=== PATIENT | female | born 1950 | race Caucasian/White ===

== ENCOUNTER → 2020-09-09 14:23 | Outpatient (BNVA) | payer MEDICARE, MEDICAID, SELFPAY | PROVIDERS: PCP Internal Medicine; Referring Provider Internal Medicine; Visit Provider Nurse Practitioner Family | DX: M47.816 Spondylosis without myelopathy or radiculopathy, lumbar region (principal); E11.40 Type 2 diabetes mellitus with diabetic neuropathy, unspecified; F17.210 Nicotine dependence, cigarettes, uncomplicated | CPT/HCPCS: 99202 ==

== ENCOUNTER → 2020-10-19 10:45 | Outpatient (BNVA) | payer MEDICARE, MEDICAID, SELFPAY | PROVIDERS: PCP Internal Medicine; Visit Provider Internal Medicine | DX: I48.0 Paroxysmal atrial fibrillation (principal); I48.92 Unspecified atrial flutter; I10 Essential (primary) hypertension; E10.8 Type 1 diabetes mellitus with unspecified complications; Z79.899 Other long term (current) drug therapy | CPT/HCPCS: Q3014 ==

== ENCOUNTER → 2020-11-18 09:49 | Outpatient (BNVA) | payer MEDICARE, MEDICAID, SELFPAY | PROVIDERS: PCP Internal Medicine; Visit Provider Internal Medicine | DX: E10.65 Type 1 diabetes mellitus with hyperglycemia (principal); E78.5 Hyperlipidemia, unspecified; I10 Essential (primary) hypertension; E55.9 Vitamin D deficiency, unspecified; Z86.39 Personal history of other endocrine, nutritional and metabolic disease | CPT/HCPCS: 82947; 99202 ==

== ENCOUNTER → 2020-11-24 09:28 | Outpatient (BNVA) | payer MEDICARE, MEDICAID, SELFPAY | PROVIDERS: PCP Internal Medicine; Visit Provider Nurse Practitioner Family | DX: M47.816 Spondylosis without myelopathy or radiculopathy, lumbar region (principal) | CPT/HCPCS: Q3014 ==

== ENCOUNTER → 2020-12-23 10:07 | Outpatient (BNVA) | payer MEDICARE, MEDICAID, SELFPAY | PROVIDERS: PCP Internal Medicine; Visit Provider Nurse Practitioner Gerontology | DX: Z13.89 Encounter for screening for other disorder (principal) | CPT/HCPCS: Q3014 ==

== ENCOUNTER → 2021-01-12 10:58 | Outpatient (BNVA) | payer MEDICARE, MEDICAID, SELFPAY | PROVIDERS: PCP Internal Medicine; Visit Provider Family Medicine Adult Medicine | DX: M47.816 Spondylosis without myelopathy or radiculopathy, lumbar region (principal); M54.16 Radiculopathy, lumbar region | CPT/HCPCS: Q3014 ==

== ENCOUNTER → 2021-01-20 11:00 | Outpatient (BNVA) | payer MEDICARE, MEDICAID, SELFPAY | PROVIDERS: PCP Internal Medicine; Visit Provider Internal Medicine | DX: I48.0 Paroxysmal atrial fibrillation (principal); I48.92 Unspecified atrial flutter; I10 Essential (primary) hypertension; E10.8 Type 1 diabetes mellitus with unspecified complications; F17.200 Nicotine dependence, unspecified, uncomplicated; Z79.899 Other long term (current) drug therapy; Z71.6 Tobacco abuse counseling | CPT/HCPCS: 93005; 99212 ==

== ENCOUNTER → 2021-01-28 13:02 | Outpatient (BNVA) | payer MEDICARE, MEDICAID, SELFPAY | PROVIDERS: PCP Internal Medicine; Visit Provider Family Medicine Adult Medicine | DX: M47.816 Spondylosis without myelopathy or radiculopathy, lumbar region (principal); M54.16 Radiculopathy, lumbar region | CPT/HCPCS: 99212 ==

== ENCOUNTER → 2021-03-02 12:59 | Outpatient (BNVA) | payer MEDICARE, MEDICAID, SELFPAY | PROVIDERS: PCP Internal Medicine; Visit Provider Family Medicine Adult Medicine | DX: M54.16 Radiculopathy, lumbar region (principal); M47.816 Spondylosis without myelopathy or radiculopathy, lumbar region | CPT/HCPCS: 99212 ==

== ENCOUNTER → 2021-03-11 13:07 | Outpatient (REF) | payer MEDICARE, MEDICAID, SELFPAY ==
--- NOTE | 2021-03-11 13:10 | CA_ITS ---
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 The visually estimated ejection fraction is between 60-65%. - There is mild calcification of the aortic valve. - There is mild mitral valve regurgitation. - There is mild tricuspid valve regurgitation. Findings Left Ventricle Normal left ventricular cavity size. There is normal left ventricular wall thickness. The left ventricular systolic function is normal. The visually estimated ejection fraction is between 60-65%. There is no evidence of regional wall motion abnormalities. Diastolic function is indeterminate on the basis of available data. Right Ventricle Normal right ventricular cavity size. There is low normal right ventricular systolic function. Atria The left atrium is likely dilated. The right atrium is normal in size. Aortic Valve There is a normal trileaflet aortic valve. There is mild calcification of the aortic valve. There is no aortic valve stenosis. There is no aortic valve regurgitation. Mitral Valve The mitral valve appears normal. There is mild mitral valve regurgitation. There is no mitral valve stenosis. Pulmonic Valve The pulmonic valve was not well visualized. Tricuspid Valve Normal tricuspid valve structure. There is mild tricuspid valve regurgitation. The pulmonary artery systolic pressure is normal. Great Vessels The asc aorta is normal in size. Venous The inferior vena cava is normal in size and collapses greater than 50% with inspiration. Pericardium/Pleural There is a trivial pericardial effusion. Prior Study Comparison Changes noted compared to prior study dated: 06/12/2019. Possible increase in left atrial size. Measurements 2D Linear Measurements IVSd: 0.82 0.6-0.9/0.6-1.0 cm LVIDd: 4.53 3.9-5.3/4.2-5.9 cm LVIDd Index: 2.89 2.4-3.2/2.2-3.1 cm/m2 LVIDs: 2.93 2.0-3.6 cm LVPWd: 0.98 0.7-1.1 cm Ao Root: 2.90 2.1-3.5 cm LA Diam: 3.80 2.7-3.8/3.0-4.0 cm LAIDs Index: 2.42 1.5-2.3 cm/m2 LV Mass: 166.48 67-162/88-224 g LV Mass Index: 106.04 43-95/49-115 g/m2 LVOT Diam: 2.00 3.0+(-)1.3 cm 2D Systolic Function EF 4C: 70.60 >55% EF 2C: 59.30 >55% EF BiP: 64.60 >55% Aortic Valve AoV Pk Daryn: 1.30 AoV Mn Daryn: 0.94 AoV VTI: 0.28 AoV Pk Grad: 7.00 Aov Mn Grad: 4.00 RAS Cont.VTI: 1.88 LVOT LVOT Pk Daryn: 0.88 LVOT Mn Daryn: 0.53 LVOT VTI: 0.17 LVOT Pk Grad: 3.00 LVOT Mn Grad: 1.00 LVOT Diam: 2.00 LVOT Area: 3.14 Tricuspid Valve TR Pk Daryn: 2.42 TR Pk Grad: 23.00 RA Press: 3.00 RVSP: 26.00 Great Vessels Aorta Ao Root-2D: 2.90 2.0-3.7 cm Ao Asc: 3.00 2.1-3.4 cm Ao Arch: 2.80 Updated in Other Vendor System with Status of Final Ger Rowe MD electronically signed on 03/13/2021 12:21:42 PM with status of Final
--- NOTE | 2021-03-11 13:25 | ECG_ITS ---
Hook-up date: 2021-03-11 14:27:00 Duration: 47:59:00 Test Indications: UNSPEC. ATRIAL FLUTTER Medications: 094198 QRS complexes 1241 Ventricular ectopics which represent 1 % of total QRS comp. 287 Supraventricular ectopics which represent <1 % of total QRS comp. * Paced QRS complexs which represent % of total QRS comp. VENTRICULAR ECTOPY 1241 Isolated 3 Bigeminal Cycles 0 Couplets 0 Runs 0 Beats in Runs * Beats LONGEST at * BPM at :: -- * Beats FASTEST at * BPM at :: -- SUPRAVENTRICULAR ECTOPY 281 Isolated 3 Couplets 0 Runs 0 Beats in Runs * Beats LONGEST at * BPM at :: -- * Beats FASTEST at * BPM at :: -- HEART RATES 54 MIN at 08:14:30 2021-03-12 82 AVG 143 MAX at 19:28:08 2021-03-11 LONGEST RR 1.2800 secs at 16:42:35 2021-03-11 S-T LEVELS Channel 1 - 128 mm at 14:27:00 2021-03-11 - 128 mm at 14:27:00 2021-03-11 Channel 2 - 128 mm at 14:27:00 2021-03-11 - 128 mm at 14:27:00 2021-03-11 Channel 3 - 128 mm at 03:34:61 -- - 128 mm at 03:34:61 Underlying rhythm is sinus and atrial flutter; About 30% of the time, in atrial flutter; Overall rates, 54-143/min; about 16% of the time, >100/min; Occasional PVCs; Shortness of breath in diary possibly related to flutter. Referred By: Kailey Sandra Overread By: KAILEY SANDRA
== END ==
LOC: HO.CARD 13:07
PROVIDERS: Visit Provider Internal Medicine
DX: I48.92 Unspecified atrial flutter (principal)
CPT/HCPCS: 93225; 93226; 93306

== ENCOUNTER → 2021-03-30 13:30 | Outpatient (BNVA) | payer MEDICARE, MEDICAID, SELFPAY | PROVIDERS: PCP Internal Medicine; Visit Provider Nurse Practitioner Family | DX: M47.816 Spondylosis without myelopathy or radiculopathy, lumbar region (principal); M54.16 Radiculopathy, lumbar region | CPT/HCPCS: 99212 ==

== ENCOUNTER → 2021-04-01 13:15 | Outpatient (BNVA) | payer MEDICARE, MEDICAID, SELFPAY | PROVIDERS: PCP Internal Medicine; Referring Provider Internal Medicine; Visit Provider Internal Medicine | DX: I48.0 Paroxysmal atrial fibrillation (principal); I48.92 Unspecified atrial flutter; I10 Essential (primary) hypertension; E10.8 Type 1 diabetes mellitus with unspecified complications | CPT/HCPCS: 99212 ==

== ENCOUNTER → 2021-04-26 12:53 | Outpatient (REF) | payer MEDICARE, MEDICAID, SELFPAY | LOC: HO.SL 12:53 | PROVIDERS: PCP Internal Medicine; Visit Provider Internal Medicine | DX: G47.33 Obstructive sleep apnea (adult) (pediatric) (principal); I48.92 Unspecified atrial flutter | CPT/HCPCS: 95806 ==

== ENCOUNTER → 2021-04-27 13:23 | Outpatient (BNVA) | payer MEDICARE, MEDICAID, SELFPAY | PROVIDERS: PCP Internal Medicine; Visit Provider Family Medicine Adult Medicine | DX: M54.16 Radiculopathy, lumbar region (principal); M47.816 Spondylosis without myelopathy or radiculopathy, lumbar region; Z79.899 Other long term (current) drug therapy | CPT/HCPCS: 99212 ==

== ENCOUNTER 2021-05-27 12:56 | Outpatient (REF) | payer MEDICARE, MEDICAID, SELFPAY ==
[2021-05-27 14:15] LABS: MANUAL DIFF FLAG NO
[2021-05-27 14:17] LABS: Basophils Percent Auto 0.2 % (0-2); Eosinophils Absolute Auto 0.1 X10*3/uL (0.0-0.4); Eosinophils Percent Auto 1.5 % (0-4); Hematocrit 38.6 % (37-47); Imm Gran Abs Auto 0.05 X10*3/uL (0.00-0.03); Imm Gran Pct Auto 0.6 % (0.0-0.4); Lymphocytes Absolute Auto 0.9 X10*3/uL (1.2-4.9); Lymphocytes Percent Auto 11.4 % (20-40); Mean Corpuscular HGB Conc 33.7 g/dl (31.0-35.0); Mean Corpuscular Hemoglobin 35.2 pg (27.0-33.0); Mean Corpuscular Volume 104.6 fL (80-98); Mean Platelet Volume 10.1 fL (9.4-12.3); Monocytes Absolute Auto 0.6 X10*3/uL (0.1-1.2); Monocytes Percent Auto 7.2 % (2-11); Neutrophils Absolute Auto 6.4 X10*3/uL (2.0-8.3); Neutrophils Percent Auto 79.1 % (45-73); Platelet Count 256 X10*3/uL (160-400); Red Blood Count 3.69 X10*6/uL (4.20-5.50); Red Cell Distribution Width 15.9 % (11.0-16.0); White Blood Count 8.2 X10*3/uL (4.8-10.8)
[2021-05-27 14:45] LABS: Alanine Aminotransferase 10 U/L (0-31); Albumin Level 3.8 g/dL (3.5-5.0); Alkaline Phosphatase 66 U/L (39-117); Anion Gap 13 (12-20); Aspartate Amino Transferase 16 U/L (5-31); B Type Natriuretic Peptide 423 pg/mL (<100); Bilirubin Total 0.4 mg/dL (0.0-1.0); Blood Urea Nitrogen 25 mg/dL (9-16); Calcium 9.4 mg/dL (8.4-10.2); Carbon Dioxide 35 mmol/L (22-29); Chloride 96 mmol/L (96-108); Cholesterol 199 mg/dL; Estimated Glomerular Filt Rate 26; Glucose Random 205 mg/dL (60-115); HDL Cholesterol 83 mg/dL; Iron 71 mcg/dL (30-160); LDL Cholesterol Calculated 91 mg/dl; Percent Iron Saturation 26 % (15-50); Potassium 3.5 mmol/L (3.3-5.1); Sodium 140 mmol/L (135-145); Total Iron Binding Capacity 277 mcg/dL (228-428); Total Protein 5.8 g/dL (6.5-8.0); Triglycerides 127 mg/dL; Unsaturated Iron Binding 206 ug/dL
[2021-05-27 15:05] LABS: Thyroid Stimulating Hormone 2.92 uIU/mL (0.32-4.0)
[2021-05-27 15:35] LABS: Creatinine Urine 117.49 mg/dL; Microalbum/Creatinine Ratio Ur 41.7 ug/mg cr
[2021-05-28 18:51] LABS: Triiodothyronine T3 Total 82 ng/dL (76-181)
[2021-06-01 12:26] LABS: Vitamin D 25-OH, D2 <4 ng/mL; Vitamin D 25-OH, D3 54 ng/mL; Vitamin D 25-OH, Total 54 ng/mL (30-100)
[2021-06-01 19:31] LABS: Glutamic acid decarboxylase Ab <5 IU/mL (<5)
[2021-06-08 07:16] LABS: Islet Cell Antibody Screen NEGATIVE (NEGATIVE)
== END 2021-05-27 12:57 | disposition home or self-care (01) ==
LOC: HO.LAB 12:56
PROVIDERS: Absent Provider Nurse Practitioner Family; PCP Internal Medicine; Visit Provider Family Medicine Adult Medicine
DX: M47.26 Other spondylosis with radiculopathy, lumbar region (principal); Z79.891 Long term (current) use of opiate analgesic; R60.9 Edema, unspecified; D64.9 Anemia, unspecified; I10 Essential (primary) hypertension; E78.5 Hyperlipidemia, unspecified; E10.8 Type 1 diabetes mellitus with unspecified complications; E55.9 Vitamin D deficiency, unspecified; Z86.39 Personal history of other endocrine, nutritional and metabolic disease
CPT/HCPCS: 36415; 80053; 80061; 82043; 82306; 83540; 83880; 84439; 84443; 84480; 85025; 86255; 86341; 99212

== ENCOUNTER → 2021-06-18 12:57 | Outpatient (BNVA) | payer MEDICARE, MEDICAID, SELFPAY | PROVIDERS: PCP Internal Medicine; Visit Provider Internal Medicine Pulmonary Disease | DX: G47.33 Obstructive sleep apnea (adult) (pediatric) (principal); I48.0 Paroxysmal atrial fibrillation; I48.92 Unspecified atrial flutter; R06.02 Shortness of breath; E11.8 Type 2 diabetes mellitus with unspecified complications; E55.9 Vitamin D deficiency, unspecified; F11.20 Opioid dependence, uncomplicated; F17.210 Nicotine dependence, cigarettes, uncomplicated; Z79.01 Long term (current) use of anticoagulants | CPT/HCPCS: 99202 ==

== ENCOUNTER → 2021-06-24 14:05 | Outpatient (BNVA) | payer MEDICARE, MEDICAID, SELFPAY | PROVIDERS: PCP Internal Medicine; Visit Provider Family Medicine Adult Medicine | DX: M47.816 Spondylosis without myelopathy or radiculopathy, lumbar region (principal); M54.16 Radiculopathy, lumbar region; I48.0 Paroxysmal atrial fibrillation; I48.92 Unspecified atrial flutter; E10.69 Type 1 diabetes mellitus with other specified complication; E55.9 Vitamin D deficiency, unspecified; K50.90 Crohn's disease, unspecified, without complications; F11.20 Opioid dependence, uncomplicated; F17.200 Nicotine dependence, unspecified, uncomplicated | CPT/HCPCS: 99212 ==

== ENCOUNTER → 2021-07-22 12:58 | Outpatient (BNVA) | payer MEDICARE, MEDICAID, SELFPAY | PROVIDERS: Visit Provider Family Medicine Adult Medicine | DX: M47.816 Spondylosis without myelopathy or radiculopathy, lumbar region (principal); M54.16 Radiculopathy, lumbar region; R10.9 Unspecified abdominal pain | CPT/HCPCS: 99212 ==

== ENCOUNTER → 2021-08-19 13:04 | Outpatient (BNVA) | payer MEDICARE, MEDICAID, SELFPAY | PROVIDERS: PCP Internal Medicine; Visit Provider Family Medicine Adult Medicine | DX: Z51.81 Encounter for therapeutic drug level monitoring (principal); R10.9 Unspecified abdominal pain | CPT/HCPCS: Q3014 ==

== ENCOUNTER → 2021-09-23 13:40 | Outpatient (BNVA) | payer MEDICARE, MEDICAID, SELFPAY | PROVIDERS: PCP Internal Medicine; Visit Provider Family Medicine Adult Medicine | DX: Z51.81 Encounter for therapeutic drug level monitoring (principal); F11.20 Opioid dependence, uncomplicated | CPT/HCPCS: 99211 ==

== ENCOUNTER → 2021-10-20 13:48 | Outpatient (BNVA) | payer MEDICARE, MEDICAID, SELFPAY | PROVIDERS: PCP Internal Medicine; Visit Provider Nurse Practitioner Family | DX: Z51.81 Encounter for therapeutic drug level monitoring (principal); F11.20 Opioid dependence, uncomplicated; M47.816 Spondylosis without myelopathy or radiculopathy, lumbar region; G89.29 Other chronic pain | CPT/HCPCS: 99212 ==

== ENCOUNTER 2022-05-24 13:30 | Outpatient (REF) | payer MEDICARE, MEDICAID, SELFPAY ==
[2022-05-24 15:06] LABS: Alanine Aminotransferase 18 U/L (0-31); Albumin Level 4.2 g/dL (3.5-5.0); Alkaline Phosphatase 146 U/L (39-117); Anion Gap 19 (12-20); Aspartate Amino Transferase 18 U/L (5-31); Bilirubin Total 0.4 mg/dL (0.0-1.0); Blood Urea Nitrogen 30 mg/dL (9-16); Calcium 9.7 mg/dL (8.4-10.2); Carbon Dioxide 31 mmol/L (22-29); Chloride 92 mmol/L (96-108); Estimated Glomerular Filt Rate 26; Glucose Random 357 mg/dL (60-115); Potassium 4.5 mmol/L (3.3-5.1); Sodium 137 mmol/L (135-145); Total Protein 6.8 g/dL (6.5-8.0)
== END 2022-05-24 13:31 | disposition home or self-care (01) ==
LOC: HO.LAB 13:30
PROVIDERS: PCP Internal Medicine; Visit Provider Internal Medicine
DX: G89.4 Chronic pain syndrome (principal)
CPT/HCPCS: 36415; 80053

== ENCOUNTER 2022-05-31 10:52 | Outpatient (REF) | payer MEDICARE, MEDICAID, SELFPAY ==
[2022-05-31 14:02] LABS: Basophils Percent Auto 0.5 % (0-2); Eosinophils Absolute Auto 0.1 X10*3/uL (0.0-0.4); Eosinophils Percent Auto 1.1 % (0-4); Hematocrit 43.7 % (37.0-47.0); Hemoglobin 14.1 g/dl (12.0-16.0); Imm Gran Abs Auto 0.13 X10*3/uL (0.00-0.03); Imm Gran Pct Auto 1.5 % (0.0-0.4); Lymphocytes Absolute Auto 0.9 X10*3/uL (1.2-4.9); Lymphocytes Percent Auto 9.6 % (20-40); MANUAL DIFF FLAG NO; Mean Corpuscular HGB Conc 32.3 g/dl (31.0-35.0); Mean Corpuscular Hemoglobin 32.6 pg (27.0-33.0); Mean Corpuscular Volume 101.2 fL (80.0-98.0); Mean Platelet Volume 10.8 fL (9.4-12.3); Monocytes Absolute Auto 0.5 X10*3/uL (0.1-1.2); Monocytes Percent Auto 5.4 % (2-11); Neutrophils Absolute Auto 7.2 x10*3/uL (2.0-8.3); Neutrophils Percent Auto 81.9 % (45-73); Platelet Count 340 X10*3/uL (160-400); Red Blood Count 4.32 X10*6/uL (4.20-5.50); Red Cell Distribution Width 15.1 % (11.0-16.0); White Blood Count 8.8 X10*3/uL (4.8-10.8)
[2022-05-31 14:24] LABS: Alanine Aminotransferase 19 U/L (0-31); Alkaline Phosphatase 130 U/L (39-117); Anion Gap 18 (12-20); Aspartate Amino Transferase 23 U/L (5-31); Bilirubin Total 0.2 mg/dL (0.0-1.0); Blood Urea Nitrogen 30 mg/dL (9-16); Calcium 9.2 mg/dL (8.4-10.2); Carbon Dioxide 28 mmol/L (22-29); Chloride 96 mmol/L (96-108); Estimated Glomerular Filt Rate 38; Glucose Random 330 mg/dL (60-115); Potassium 4.4 mmol/L (3.3-5.1); Sodium 138 mmol/L (135-145); Total Protein 6.5 g/dL (6.5-8.0)
== END 2022-05-31 10:53 | disposition home or self-care (01) ==
LOC: HO.HMGCLNP 10:52
PROVIDERS: PCP Internal Medicine; Visit Provider Internal Medicine
DX: I12.9 Hypertensive chronic kidney disease with stage 1 through stage 4 chronic kidney disease, or unspecified chronic kidney disease (principal); N18.2 Chronic kidney disease, stage 2 (mild)
CPT/HCPCS: 80053; 85025

== ENCOUNTER 2022-09-29 14:40 | Outpatient (REF) | payer MEDICARE, MEDICAID, SELFPAY ==
--- NOTE | ~2022-09-29 | XR_ITS ---
EXAMINATION: XR KNEE, LEFT CLINICAL INFORMATION: Left knee pain COMPARISON: Radiographs left knee 12/07/2015, left lower leg 04/04/2020. TECHNIQUE: AP and lateral views of the left knee. FINDINGS: There is probable mild underlying osteopenia. There is no destructive process. No fracture or dislocation. No periostitis. No focal joint narrowing or erosive change or visible chondrocalcinosis. Trace fluid is present suprapatellar bursa. Hoffa's fat pad appears normal. XR/XR knee LT 2V IMPRESSION: 1. Probable mild underlying osteopenia. 2. No joint narrowing or erosive change. 3. Trace fluid suprapatellar bursa.
== END 2022-09-29 14:41 | disposition home or self-care (01) ==
LOC: HO.XRAY 14:40
PROVIDERS: PCP Internal Medicine; Visit Provider Internal Medicine
DX: M25.562 Pain in left knee (principal)
CPT/HCPCS: 73560

== ENCOUNTER 2022-10-20 10:35 | Outpatient (REF) | payer MEDICARE, MEDICAID, SELFPAY ==
--- NOTE | ~2022-10-20 | MM_ITS ---
EXAMINATION: BONE DENSITOMETRY CLINICAL INDICATION: Menopause. COMPARISON: None (current study represents initial baseline exam). TECHNIQUE: Using a Zurn DXA System (software version: 13.1) manufactured by [employer], dual-energy x-ray absorptiometry was performed of the lumbar spine and right hip. The images are of good technical quality. Summary results are attached. FINDINGS: AP SPINE L1-L4: BMD 0.846 g/cm2, Z-score -0.9, T-score -2.8, osteoporosis. RIGHT FEMUR, NECK: BMD 0.588 g/cm2, Z-score -1.3, T-score -3.2, osteoporosis. RIGHT FEMUR, TOTAL: BMD 0.521 g/cm2, Z-score -2.1, T-score -3.9, osteoporosis. IDENTIFIED RISK FACTORS: Menopause, glucocorticoids (chronic), history of fracture (adult), low calcium intake, renal, tobacco use (current smoker), secondary osteoporosis. HISTORY OF FRACTURE: Hip, sacrum. MEDICATIONS: None listed. MM/XR DEXA axial skeleton IMPRESSION: 1. DIAGNOSIS: Osteoporosis based on the lowest T-score value of -3.9 in the total femur applying World Health Organization criteria. 2. 10-YEAR FRACTURE RISK PREDICTION, FRAX: According to the guidelines, FRAX calculation should only be performed on patients in the osteopenia bone density category. Therefore, FRAX was not performed on this patient. 3. Treatment Recommendations: NOF guidelines recommend consideration for treatment in postmenopausal women and men age 50 and older presenting with the following: -A hip or vertebral (clinical or morphometric) fracture. -T-score less than or equal to -2.5 at the femoral neck or spine after appropriate evaluation to exclude secondary causes. -Low bone mass at the hip or spine and a 10-year fracture probability by FRAX of greater than or equal to 3% for hip fracture or greater than or equal to 20% for major osteoporotic fracture based on the [place] adapted WHO algorithm. 4. Other Recommendations: All treatment decisions require clinical judgment and consideration of individual patient factors, including patient preferences, comorbidities, previous drug use, risk factors not captured in the FRAX model (e.g. frailty, falls, vitamin D deficiency, increased bone turnover, interval significant decline in bone density) and possible under or overestimation of fracture risk by FRAX. Additional medical evaluation for secondary cause of low bone mineral density may be appropriate. FUTURE SCAN RECOMMENDATION: People with diagnosed cases of osteoporosis or at high risk for fracture should have regular bone mineral density tests. For patients eligible for Medicare, routine testing is allowed once every 2 years. The testing frequency can be increased to one year for patients who have rapidly progressing disease, those who are receiving or discontinuing medical therapy to restore bone mass, or have additional risk factors.
== END 2022-10-20 10:36 | disposition home or self-care (01) ==
LOC: HO.MAMMO 10:35
PROVIDERS: PCP Internal Medicine; Visit Provider Internal Medicine
DX: Z13.820 Encounter for screening for osteoporosis (principal); Z78.0 Asymptomatic menopausal state; M85.80 Other specified disorders of bone density and structure, unspecified site
CPT/HCPCS: 77080

== ENCOUNTER 2023-05-30 10:09 | Outpatient (AMB) | payer MEDICARE, MEDICAID, SELFPAY ==
--- NOTE | 2023-05-30 10:14 | A.OFFPC_ITS ---
Vital Signs 05/30/23 10:15 Height 5 ft 8 in Weight 134 lb BMI 20.4 BP 122/70 Blood Pressure Location Lt brachial Position Sitting Pulse 92 Pulse Source Pulse Oximeter Temp Source Skin Pulse Oximetry (%) 95 Oxygen Delivery Method Room Air Intake Visit Reasons: 05/01, [facility], fracture of right pubis Intake Note: Patient is here for hospital discharge follow up. Patient was [place] [facility] [place] transferred to [facility] Allergies adhesive Allergy (Verified 05/30/23 10:59) peels 1st layer of skin Medication List - Last Reconciled 05/30/23 by Batool Flowers, JAVID alendronate 70 mg PO QWEEK 90 days allopurinol 100 mg PO DAILY atorvastatin 40 mg PO BEDTIME 90 days blood sugar diagnostic (Accu-Chek Deepa Plus test strips) test 6x daily Type 1; blood sugar diagnostic (Blood Glucose Test strips) Use 1 test strip four times a day clobetasol 0.05% 1 appl topical DAILY diltiazem HCl 180 mg PO BID 90 days flash glucose sensor (FreeStyle Tico 3 Sensor kit) As directed fluconazole 150 mg PO Q3D 2 doses gabapentin 100 mg PO DAILY hydromorphone 2 mg PO Q8H PRN 30 days insulin aspart U-100 (Novolog FlexPen U-100 Insulin aspart) 15 units (0.15 mL) s ubcut .four times a day PRN 90 days insulin glargine (Basaglar KwikPen U-100 Insulin) 25 units (0.25 mL) subcut DAILY 90 days latanoprost 0.005% 1 drp ophthalmic (eye) BEDTIME metoprolol succinate ER 25 mg PO DAILY midodrine 5 mg PO TID 30 days naloxone 4 mg/actuation (Narcan) 4 mg intranasal Q2M PRN pen needle, diabetic Use 1 needle four times a day prednisone 5 mg PO DAILY 90 days rivaroxaban (Xarelto) 15 mg PO DAILY 90 days torsemide 40 mg (2 x 20 mg) PO DAILY 90 days Tobacco use date assessed: 05/30/23 Fall risk assessment: No Falls in past year Last assessed Fall Risk: 05/30/23 Dental Screening Dental Screen Date: 05/30/23 Did you have a dental visit in the last 12 months?: No Did you have a dental problem in the last 6 months where you did not have access to dental care?: No Was dental information given to patient?: Patient has dentist HPI HPI Comments History of Present Illness Details 73-year-old female past medical history significant for COPD, persistent AFib, hyperlipidemia, chronic pain syndrome, ELOISA, Crohn's disease, type [address] mellitus[address] of [address] Alfaro [facility] an admission to [facility] [place] with a discharge date of 04/14/2023 patient presented at [facility] ER with weakness, urinary urgency and incontinence as well as abdominal pain course in the suprapubic region. Patient was also found AFib with ventricular response in the 160s. Patient was found to have positive UTI, pyelonephritis and bacteremia with Klebsiella. Abdominal CT showed postsurgical changes from left proximal femur hardware placement from previous fracture, as well as bladder wall thickening suggesting cystitis an area of low attenuation at the upper pole of left kindney concercing pylonephritis. Patient underwent left renal abscess drainage on 04/04/23 and 04/11. Patient reports drains were removed last week. Patient states following with urology, Cardiology follow up on , follow with DR. Callaway at [facility]. Patient reports was seen by Dr. Ariel DORSEY and does not require further follow up, will request records LAst week AFIB RVR recommended to go ER. Denies CP, palpitations, syncope. For discharge instructions patient was to continue on her Xarelto, Cardizem 240 mg daily, metoprolol 50 mg t.i.d. and digoxin 125 mcg daily. However list patient brought to appointment did not digoxin listed and had Cardizem a 180 daily and metoprolol 25 mg daily. Patient to be called to verify medications at home and what medication she needed a refill on however she forgot the name of this. [facility] Medical History Abdominal discomfort Abnormal CBC measurement Bullous pemphigoid Crohn's disease Diabetes mellitus type 1 Essential hypertension History of Graves' disease Opiate dependence Paroxysmal atrial fibrillation Paroxysmal atrial flutter Right lumbar radiculopathy Shortness of breath Type 1 diabetes mellitus with unspecified complications Vitamin D deficiency Surgical History History of bowel resection History of thyroid nodule Family History Father CVD (cardiovascular disease) Pacemaker Mother Constipation Sister Thyroid disease Social History Household Members: None Household Members Other:: Single lives jyoti Housing: House Alcohol intake: former Patient Tobacco Use Status: Current everyday Tobacco user Tobacco use type: Cigarette Cigarette Packs Per Day: 1 e-Cigarette/Vaping Use: Never Used Second Hand Smoke Exposure: No service: No Current occupational status: disabled Current occupation: On disability since 2001 -nerve damage in foot Cognitive needs: Yes Hearing needs: No Vision needs: Yes Questionnaire Thrive Questionnaire Date Thrive assessed: 01/31/23 AUDIT C Alcohol Use Questionnaire (AUDIT-C) 1. How often do you have a drink containing alcohol?: Monthly or less 2. How many drinks containing alcohol do you have on a typical day when you are drinking?: 1 or 2 3. How often do you have six or more drinks on one occasion?: Never Total Score: 1 HIWOT-7 AMB Questionnaire HIWOT-7 Date HIWOT - 7 assessed: 01/31/23 Source: Developed by Drs. Kieran Summers, Jillian Abrams, Gregg Paris and colleagues, with an educational edmond from [employer]. Review of Systems Const Denies chills, Denies fatigue, Denies fever(s) and Denies poor appetite Eyes Denies no additional complaints ENT Reports Normal hearing present Card Denies chest pain, Denies syncope, Denies rapid heart rate and Denies dyspnea Resp Denies cough and Denies dyspnea GI Denies change in stool character, Denies constipation, Denies diarrhea, Denies nausea and Denies vomiting Denies urinary frequency, Denies dysuria and Denies urinary urgency Neuro Reports Normal hearing present, Denies confusion and Denies syncope Psych Denies confusion Endo Denies fatigue Physical exam (Primary Care) Vital Signs: Last Vital Signs Pulse 92 05/30/23 10:15 BP 122/70 05/30/23 10:15 Pulse Ox 95 05/30/23 10:15 Oxygen Delivery Method Room Air 05/30/23 10:15 BMI result Body Mass Index 20.4 Tobacco/Smoking Status: Tobacco use Status Tobacco use date assessed 05/30/23 05/30/23 10:22 Patient Tobacco Use Status Current everyday Tobacco 05/30/23 10:22 Tobacco use type Cigarette 05/30/23 10:22 e-Cigarette/Vaping Use Never Used 05/30/23 10:22 Thrive Assessment: Date of Thrive Assessment Date Thrive assessed 01/31/23 05/30/23 10:22 Const General: No confusion Orientation/consciousness: No confusion HENMT Head: Yes normocephalic and Yes atraumatic Eyes Conjunctivae: conjunctivae normal Chest Chest palpation & inspection: normal inspection of the chest Resp Effort & Inspection: normal respiratory effort Auscultation: clear to auscultation bilaterally, no crackles, no rhonchi and no wheezes Cardio Rate: regular rate Rhythm: regular rhythm Heart sounds: S1 normal heart sound present and S2 normal heart sound present GI Inspection: Yes normal to inspection Neuro General: No confusion Cranial nerves: Yes Normal hearing present Extrem General: No edema Assessment and Plan Assessment & Plan (1) Diabetes mellitus type 1: Code(s): E10.9 - Type 1 diabetes mellitus without complications Plan: Continue on NovoLog 15 units q.i.d. and Basaglar 25 units daily. (2) Persistent atrial fibrillation: Code(s): I48.19 - Other persistent atrial fibrillation Plan: Keep scheduled follow-up with hand or machine paster this coming . Patient advised to have send recent note to PCP. Patient to be called to verify cardiac medications and dosing she was unsure what medication she need refill on there was discrepancy between patient's list discharge instructions. (3) Hyperlipidemia LDL goal <70: Code(s): E78.5 - Hyperlipidemia, unspecified Plan: Continue on atorvastatin 40 mg bedtime. Follow low-cholesterol diet. Plan Keep scheduled follow-up with PCP in 1 month. Coding Level of Care Code Est Pt Level 4 (88840) Diagnoses Diabetes mellitus type 1 E10.9 Persistent atrial fibrillation I48.19 Hyperlipidemia LDL goal <70 E78.5
[2023-05-30 10:15] VITALS: BP 122/70; PULSE 92; O2SAT 95; BMI 20.4
== END 2023-05-30 11:37 | disposition home or self-care (01) ==
PROVIDERS: PCP Internal Medicine; Visit Provider Nurse Practitioner Family
DX: E10.9 Type 1 diabetes mellitus without complications (principal); I48.19 Other persistent atrial fibrillation; E78.5 Hyperlipidemia, unspecified
CPT/HCPCS: 99214

== ENCOUNTER 2023-07-07 08:28 | Outpatient (AMB) | payer MEDICARE, MEDICAID, SELFPAY ==
--- NOTE | 2023-07-07 08:33 | MHC.PC.OV ---
Vital Signs 07/07/23 08:34 Height 5 ft 8 in Weight 134 lb 6 oz BMI 20.4 BP 118/70 Blood Pressure Location Lt brachial Position Sitting Pulse 73 Pulse Source Pulse Oximeter Pulse Oximetry (%) 99 Oxygen Delivery Method Room Air Intake Visit Reasons: Cataract surgery, 07/12 R eye, 08/09 L eye Recreation Director Required: No Accompanied by: Self / Same As Patient Allergies adhesive Allergy (Verified 07/07/23 09:08) peels 1st layer of skin Medication List - Last Reconciled 07/07/23 by Sriram Chew MD alendronate 70 mg PO QWEEK 90 days allopurinol 100 mg PO DAILY atorvastatin 40 mg PO BEDTIME 90 days blood sugar diagnostic (Accu-Chek Deepa Plus test strips) test 6x daily Type 1; blood sugar diagnostic (Blood Glucose Test strips) Use 1 test strip four times a day clobetasol 0.05% 1 appl topical DAILY diltiazem HCl 180 mg PO BID 90 days flash glucose sensor (FreeStyle Tico 3 Sensor kit) As directed fluconazole 150 mg PO Q3D 2 doses gabapentin 100 mg PO DAILY hydromorphone 2 mg PO Q8H PRN 30 days insulin aspart U-100 (Novolog FlexPen U-100 Insulin aspart) 15 units (0.15 mL) subcut .four times a day PRN 90 days insulin glargine (Basaglar KwikPen U-100 Insulin) 25 units (0.25 mL) subcut DAILY 90 days latanoprost 0.005% 1 drp ophthalmic (eye) BEDTIME metoprolol succinate ER 50 mg PO DAILY midodrine 5 mg PO TID 30 days naloxone 4 mg/actuation (Narcan) 4 mg intranasal Q2M PRN pen needle, diabetic Use 1 needle four times a day prednisone 5 mg PO DAILY 90 days rivaroxaban (Xarelto) 15 mg PO DAILY 90 days torsemide 40 mg (2 x 20 mg) PO DAILY 90 days Tobacco use date assessed: 07/07/23 Fall risk assessment: No Falls in past year Last assessed Fall Risk: 07/07/23 Dental Screening Dental Screen Date: 07/07/23 Did you have a dental visit in the last 12 months?: Yes Did you have a dental problem in the last 6 months where you did not have access to dental care?: No Was dental information given to patient?: Patient has dentist HPI Cataract surgery, 07/12 R eye, 08/09 L eye HPI Details Patient comes in today at the request of Dr. Nahun Chang for a preoperative medical examination for clearance for surgery She is scheduled for cataract extraction/phacoemulsification with IOL of the right eye under MAC on 07/12/2023, followed by the same procedure on the left eye a few weeks later on 08/09/2023 Patient states that she feels well She has past medical histories significant for diabetes, hypertension, paroxysmal atrial fibrillation, CKD, bullous phemphigoid and chronic pain syndrome States that her blood sugar readings have been very good lately and that her blood sugar reading this morning was around 117 mg/dl She denies any headaches or dizziness Denies any chest pains, no SOB No nausea/vomiting, no abdominal pain No change in bowel habits noted States that she had some follow up labs done at [facility] a couple of weeks ago [facility] Medical History (Updated 07/07/23 @ 11:06 by Sriram Chew MD) Chronic kidney disease, stage III (moderate) Pure hypercholesterolemia Abdominal discomfort Shortness of breath Right lumbar radiculopathy Abnormal CBC measurement Crohn's disease History of Graves' disease Vitamin D deficiency Opiate dependence Bullous pemphigoid Type 1 diabetes mellitus with unspecified complications Essential hypertension Paroxysmal atrial flutter Paroxysmal atrial fibrillation Diabetes mellitus type 1 Surgical History History of bowel resection History of thyroid nodule Family History Father CVD (cardiovascular disease) Pacemaker Mother Constipation Sister Thyroid disease Social History Household Members: None Household Members Other:: Single lives jyoti Housing: House Alcohol intake: former Patient Tobacco Use Status: Current everyday Tobacco user Tobacco use type: Cigarette Cigarette Packs Per Day: 1 e-Cigarette/Vaping Use: Never Used Second Hand Smoke Exposure: No service: No Current occupational status: disabled Current occupation: On disability since 2001 -nerve damage in foot Cognitive needs: Yes Hearing needs: No Vision needs: Yes Questionnaire PHQ-9 Over the last 2 weeks, how often have you been bothered by any of the following problems? 1. Little interest or pleasure in doing things: not at all 2. Feeling down, depressed, or hopeless: not at all 3. Trouble falling or staying asleep, or sleeping too much: not at all 4. Feeling tired or having little energy: not at all 5. Poor appetite or overeating: not at all 6. Feeling bad about yourself - or that you are a failure or have let yourself or your family down: not at all 7. Trouble concentrating on things, such as reading the newspaper or watching television: not at all 8. Moving or speaking so slowly that other people could have noticed. Or the opposite - being so fidgety or restless that you have been moving around a lot more than usual: not at all 9. Thoughts that you would be better off or of hurting yourself in some way: not at all Total score: 0 Depression Screening Interpretation: Negative [id number] - PHQ-9 Billing: Yes Source: Developed by Drs. Kieran Summers, Jillian Abrams, Gregg Paris and colleagues, with an educational edmond from [employer]. Thrive Questionnaire Date Thrive assessed: 07/07/23 I am a: Patient What is your living situation today?: I have a steady place to live Within the past 12 months, did the food you bought not last and you didn't have the money to get more?: Never true Within the past 12 months, did you worry whether your food would run out before you got money to buy more?: Never true Do you have trouble paying for medicines?: No Do you have trouble getting transportation to medical appointments?: No Do you have trouble paying your heating and electricity bill?: No Do you have trouble taking care of your child, family member or friend?: No Do you have trouble with day-to-day activities such as bathing, preparing meals, shopping, managing finances, etc.?: No Are you currently unemployed and looking for a job?: No Are you interested in more education?: No Please select the resources that you would like help with: None Currently or been in a relationship where the following occur: no concerns reported AUDIT C Alcohol Use Questionnaire (AUDIT-C) 1. How often do you have a drink containing alcohol?: Monthly or less 2. How many drinks containing alcohol do you have on a typical day when you are drinking?: 1 or 2 3. How often do you have six or more drinks on one occasion?: Never Total Score: 1 Score Reviewed/Action Taken: Yes HIWOT-7 AMB Questionnaire HIWOT-7 Date HIWOT - 7 assessed: 07/07/23 Feeling nervous, anxious, or on edge: 0 = Not at all Not being able to stop or control worryin = Not at all Worrying too much about different things: 0 = Not at all Trouble relaxin = Not at all Being so restless that it is hard to sit still: 0 = Not at all Becoming easily annoyed or irritable: 0 = Not at all Feeling afraid as if something awful might happen: 0 = Not at all Total HIWOT-7 score (0-4 normal; 5-9 mild; 10-14 moderate; 15-21 severe): 0 Source: Developed by Drs. Kieran Summers, Jillian Abrams, Gregg Paris and colleagues, with an educational edmond from [employer]. Review of Systems Const Denies fatigue, Denies fever(s) and Denies headache(s) Eyes Reports blurry vision ENT Denies dysphagia, Denies dizziness, Denies otalgia, Denies headache(s), Denies neck pain, Denies odynophagia and Denies sore throat Card Denies chest pain, Denies palpitations and Denies dyspnea Resp Denies cough and Denies dyspnea GI Denies abdominal pain, Denies constipation, Denies dysphagia, Denies heartburn, Denies diarrhea, Denies nausea, Denies odynophagia and Denies vomiting Denies difficulty voiding, Denies nocturia and Denies dysuria Musc Denies neck pain Neuro Denies dizziness and Denies headache(s) Endo Denies fatigue and Denies palpitations Physical exam (Primary Care) Vital Signs: Last Vital Signs Pulse 73 07/07/23 08:34 BP 118/70 07/07/23 08:34 Pulse Ox 99 07/07/23 08:34 Oxygen Delivery Method Room Air 07/07/23 08:34 BMI result Body Mass Index 20.4 Tobacco/Smoking Status: Tobacco use Status Tobacco use date assessed 07/07/23 07/07/23 08:42 Patient Tobacco Use Status Current everyday Tobacco 07/07/23 08:42 Tobacco use type Cigarette 07/07/23 08:42 e-Cigarette/Vaping Use Never Used 07/07/23 08:42 PHQ-9: PHQ-9 Score PHQ-9: Total score 0 07/07/23 09:13 Depression Screening Interpretation: Negative Thrive Assessment: Date of Thrive Assessment Date Thrive assessed 07/07/23 07/07/23 08:42 Currently or been in a relationship where the following occur: no concerns reported Const General: no acute distress and alert HENMT Throat: Yes posterior oropharynx normal and Yes tonsils normal (no TP congestion) Neck Neck: Yes no lymphadenopathy and Yes supple Resp Auscultation: clear to auscultation bilaterally, no rales and no wheezes Cardio Rate: regular rate Rhythm: regular rhythm Heart sounds: no murmurs GI Palpation (GI): Soft to palpation and nontender Auscultation: normal bowel sounds Back/Spine/Pelvis Thoracic/Lumbar Spine: lumbar spinal tenderness Skin Other: (+) few plaques and lesions scattered throughout her body Extrem General: Yes no clubbing, cyanosis or edema Results AMB Hemoglobin A1c AMB Hemoglobin A1c 7.5 % Last Edit by Angel Price on 07/07/23 09:28 Assessment and Plan Assessment & Plan (1) Preoperative examination: Code(s): Z01.818 - Encounter for other preprocedural examination Plan: Patient presents with acceptable risks for planned low cardiac-risk procedure Results of her labs done at [facility] a few weeks ago reviewed and discussed with patient - results are attached to this report (2) Cataracts, bilateral: Code(s): H26.9 - Unspecified cataract Qualifiers: Age-related cataract type: unspecified Cataract type: age-related Qualified Code(s): H25.9 - Unspecified age-related cataract Plan: She is scheduled for cataract extraction/phacoemulsification with IOL of the right eye under MAC on 07/12/2023, followed by the same procedure on the left eye a few weeks later on 08/09/2023 (3) Type 1 diabetes mellitus with unspecified complications: Code(s): E10.8 - Type 1 diabetes mellitus with unspecified complications Plan: In-office HgbA1c done today is at 7.5% (was at 7.6% back in January 2023) - goal is <7.0% Reinforced diabetic diet Continue Basaglar 25 units Q HS and Novolog 15 units 3 times a day with meals and at bedtime per sliding scale (4) Paroxysmal atrial fibrillation: Code(s): I48.0 - Paroxysmal atrial fibrillation Plan: Patient is currently in sinus rhythm She is maintained on Xarelto 15 mg QD for thromboembolism prophylaxis - CHADSVASc score is at least 3 Continue Diltiazem 180 mg QD, Metoprolol ER 50 mg QD and Digoxin 125 mcg QD; Multaq was discontinued by cardiology last year (2021) Follow up with cardiology as scheduled (5) Orthostatic hypotension: Code(s): I95.1 - Orthostatic hypotension Plan: Continue Midodrine 5 mg TID (6) Chronic kidney disease, stage III (moderate): Code(s): N18.30 - Chronic kidney disease, stage 3 unspecified Qualifiers: Chronic kidney disease stage 3 subtype: stage 3a (GFR 45-59) Qualified Code(s): N18.31 - Chronic kidney disease, stage 3a Plan: Is presumbaly related to her diabetes Her most recent GFR was at 45 on her labs done a few weeks ago Continue Torsemide 40 mg QD (7) Pure hypercholesterolemia: Code(s): E78.00 - Pure hypercholesterolemia, unspecified Plan: Reinforced low cholesterol diet Continue Atorvastatin 40 mg QD (8) Bullous pemphigoid: Code(s): L12.0 - Bullous pemphigoid Plan: Continue Prednisone 5 mg QD and Clobetasol 0.05% QD She has been treated with Imuran by dermatology in the past Follow up with dermatology as scheduled (9) Chronic pain syndrome: Code(s): G89.4 - Chronic pain syndrome Plan: Currently has multiple pain generators, including her lumbar spine and an old sacral fracture Continue Gabapentin 100 mg QD adn Hydromorphone 2 mg Q 8 hours PRN Follow up with pain management as scheduled Plan Patient is currently medically optimized and does not appear to have any medical contraindications to undergo her upcoming planned eye surgeries She is currently on Xarelto 15 mg QD for thromboembolism prophylaxis for her paroxysmal atrial fibrillation Have discussed with patient that we typically do not need to stop blood thinners now for cataract surgery, especially with the newer NOACs, BUT some ophthalmologists still prefer to stop them to prevent any bruising that may occur when using local anesthesia Have advised that I will leave this up to Dr. Chang if he feels comfortable with patient continuing Xarelto or not - if the preference is to HOLD the anticoagulant for surgery, she can just stop this 24 hours prior to her surgery and then resume taking it the following day after her procedure Patient is currently MEDICALLY CLEARED for her eye surgeries in the following weeks Follow up with PCP as scheduled in October 2023 Orders: Orders AMB Hemoglobin A1c Today Z13.9 - Encounter for screening, unspecified Coding Level of Care Code Est Pt Level 4 (19707) Diagnoses Preoperative examination Z01.818 Age-related cataract of both eyes, unspecified age-related cataract type H25.9 Age-related cataract type: unspecified Cataract type: age-related Type 1 diabetes mellitus with unspecified complications E10.8 Paroxysmal atrial fibrillation I48.0 Orthostatic hypotension I95.1 Stage 3a chronic kidney disease N18.31 Chronic kidney disease stage 3 subtype: stage 3a (GFR 45-59) Pure hypercholesterolemia E78.00 Bullous pemphigoid L12.0 Chronic pain syndrome G89.4
[2023-07-07 08:34] VITALS: BP 118/70; PULSE 73; O2SAT 99; BMI 20.4
== END 2023-07-07 09:31 | disposition home or self-care (01) ==
PROVIDERS: PCP Internal Medicine; Visit Provider Internal Medicine
DX: H25.9 Unspecified age-related cataract (principal); E10.8 Type 1 diabetes mellitus with unspecified complications; N18.31 Chronic kidney disease, stage 3a; Z01.818 Encounter for other preprocedural examination; I48.0 Paroxysmal atrial fibrillation; I95.1 Orthostatic hypotension; E78.00 Pure hypercholesterolemia, unspecified; L12.0 Bullous pemphigoid; G89.4 Chronic pain syndrome
CPT/HCPCS: 83036; 99214

== ENCOUNTER 2023-09-12 11:28 | Outpatient (AMB) | payer MEDICARE, MEDICAID, SELFPAY ==
[2023-09-12 11:30] VITALS: BMI 20.4
--- NOTE | 2023-09-12 11:30 | A.OFFVIS_ITS ---
Intake Vital Signs 09/12/23 11:30 Height 5 ft 8 in Weight 134 lb BMI 20.4 Intake Visit Reasons: UNIFORM DESIGNER/PCP referral for PVD Intake Note: UNIFORM DESIGNER for LE pain, started out as Left LE, but is now both LE. Pain is with or without ambulation, worse with ambulation. Pt states its constantly sore. Started with foot pain only and had swelling and discoloration. Swelling and discoloration are decreased but pain has increased. Does have neuropathy and smokes Allergies adhesive Allergy (Verified 09/12/23 11:35) peels 1st layer of skin HPI UNIFORM DESIGNER/PCP referral for PVD HPI Details Very complex 73-year-old female presents for evaluation regarding her lower extremities. She reports that she has been having ankle pain and was seen by urgent care. The performed x-rays but nothing specific found. She has been referred for lower extremity pain. She reports that she can walk about a block. In general she has had prior hip pinning and has hip pain along with ankle pain. She has a prior history of diabetes for nearly 30 years and smokes about a pack per day. She is being maintained on Xarelto for AFib. She now presents to us for vascular evaluation. [facility] Medical History Chronic kidney disease, stage III (moderate) Pure hypercholesterolemia Abdominal discomfort Shortness of breath Right lumbar radiculopathy Abnormal CBC measurement Crohn's disease History of Graves' disease Vitamin D deficiency Opiate dependence Bullous pemphigoid Type 1 diabetes mellitus with unspecified complications Essential hypertension Paroxysmal atrial flutter Paroxysmal atrial fibrillation Diabetes mellitus type 1 Surgical History History of bowel resection History of thyroid nodule Family History Father CVD (cardiovascular disease) Pacemaker Mother Constipation Sister Thyroid disease Household Members: None Household Members Other:: Single lives jyoti Housing: House Alcohol intake: former Patient Tobacco Use Status: Current everyday Tobacco user Tobacco use type: Cigarette Cigarette Packs Per Day: 1 e-Cigarette/Vaping Use: Never Used Second Hand Smoke Exposure: No service: No Current occupational status: disabled Current occupation: On disability since 2001 -nerve damage in foot Cognitive needs: Yes Hearing needs: No Vision needs: Yes Review of Systems Const All systems reviewed & are unremarkable except as noted in HPI and below Reports no additional complaints ENT Reports Normal hearing present Card Denies chest pain, Denies chest pain at rest, Denies chest pain with activity and Denies pedal edema Resp Denies cough GI Denies abdominal pain Musc Denies abnormal gait, Denies muscle cramps and Denies radiating pain into limb Skin/Breast Denies skin ulcer and Denies wounds Neuro Reports Normal hearing present and Denies abnormal gait Psych Reports no additional complaints Physical Exam Vital Signs: BMI result Body Mass Index 20.4 Const General: cooperative, healthy appearing and comfortable Orientation/consciousness: oriented to person, oriented to place and oriented to time HEENT Head: Yes normal to inspection Neck Neck: Yes normal visual inspection Carotids: no bruits Chest Chest palpation & inspection: normal inspection of the chest Resp Effort & Inspection: normal respiratory effort and able to speak in complete sentences Auscultation: clear to auscultation bilaterally, no crackles, no rales, no rhonchi and no wheezes Cardio Other: Right side palpable DP, left side DP signal Rate: regular rate Rhythm: regular rhythm Heart sounds: S1 normal heart sound present and S2 normal heart sound present Bruits: no carotid bruits Peripheral pulses: Peripheral pulses 2+ throughout GI Inspection: Yes normal to inspection Skin Wounds: no wounds Hair: normal Neuro General: oriented to person, oriented to place and oriented to time Cranial nerves: Yes CN's II-XII intact bilaterally and Yes Normal hearing present Cognition (Neuro): normal cognition Motor exam (neuro): 5/5 motor strength present throughout Extrem Other: venous exam: No significant superficial varicosities or spider telangiectasias, minimal edema General: No clubbing, No cyanosis and No edema Psych Appearance: grossly normal Mental Status: mental status grossly normal Speech and movement: Normal speech and movement present Results Reviewed Results Reviewed: CT scan dated 12/27/2022 demonstrates evidence atherosclerotic changes in the aorta and iliofemoral vessels Assessment & Plan Assessment & Plan (1) PAD (peripheral artery disease): Code(s): I73.9 - Peripheral vascular disease, unspecified Plan: In short patient has lower extremity pain. This may be multifactorial in nature. She does have a history of diabetes along with spine issues as seen on CT scan. This leads me to believe that there is a neurogenic component for this. In addition she complains of ankle and hip pain which may be an element of arthritis as well. I was unable to appreciate good palpable left leg arterial pulses. I have taken the liberty of ordering noninvasive arterial testing. We did discuss her risk factors including diabetes and smoking. We did discuss risk factor modification and she will follow up with us after barry esquivel. Thank you for allowing us to assist in her care. Orders: Orders US arterial duplex LE 1 Week I73.9 - Peripheral vascular disease, unspecified Coding Level of Care Code New Pt Level 4 (24613) Diagnoses PAD (peripheral artery disease) I73.9
== END 2023-09-12 11:56 | disposition home or self-care (01) ==
PROVIDERS: PCP Internal Medicine; Visit Provider Surgery Vascular Surgery
DX: I73.9 Peripheral vascular disease, unspecified (principal)
CPT/HCPCS: 99203

== ENCOUNTER → 2023-09-12 11:28 | Outpatient (BNVA) | payer MEDICARE, MEDICAID, SELFPAY | PROVIDERS: PCP Internal Medicine; Visit Provider Surgery Vascular Surgery | DX: I73.9 Peripheral vascular disease, unspecified (principal) | CPT/HCPCS: 99202 ==

== ENCOUNTER 2023-10-10 13:06 | Outpatient (REF) | payer MEDICARE, MEDICAID, SELFPAY ==
--- NOTE | ~2023-10-10 | US_ITS ---
EXAMINATION: Noninvasive assessment of the bilateral lower extremities with ARTERIAL DUPLEX and ANKLE BRACHIAL INDICES (ABIs). CLINICAL INFORMATION: Peripheral vascular disease TECHNIQUE: Duplex Doppler techniques with waveform analysis and measurement of velocities in the bilateral common femoral, profunda femoris, superficial femoral, popliteal and tibial arteries were performed. Additionally, ankle pulse volume recordings, ankle pressure measurements and ankle brachial indices were obtained of the lower extremity arterial system bilaterally. The study was performed only at rest. COMPARISON: None FINDINGS: DIRECT DUPLEX DOPPLER FINDINGS: RIGHT LEG: Common femoral artery: 55.2 cm/s, phasicity: Triphasic Profunda femoris artery: 44.3 cm/s, phasicity: Biphasic Superficial femoral artery (proximal): 71.2 cm/s, phasicity: Biphasic Superficial femoral artery (mid): 73.4 cm/s, phasicity: Biphasic Superficial femoral artery (distal): 73.1 cm/s, phasicity: Triphasic Popliteal artery: 88.3 cm/s, phasicity: Triphasic Posterior tibial artery: 74.4 cm/s, phasicity: Triphasic Peroneal artery: 53.7 cm/s, phasicity: Biphasic Anterior tibial artery: 50.3 cm/s, phasicity: Triphasic Dorsalis pedis artery: 78.4 cm/s, phasicity:Triphasic LEFT LEG: Common femoral artery: 63.3 cm/s, phasicity: Triphasic Profunda femoris artery: 25.6 cm/s, phasicity: Biphasic Superficial femoral artery (proximal): 65.1 cm/s, phasicity: Biphasic Superficial femoral artery (mid): 88.5 cm/s, phasicity: Biphasic Superficial femoral artery (distal): 52.6 cm/s, phasicity: Biphasic Popliteal artery: 78.5 cm/s, phasicity: Biphasic Posterior tibial artery: 61.2 cm/s, phasicity: Biphasic Peroneal artery: 43.2 cm/s, phasicity: Biphasic Anterior tibial artery: 40.4 cm/s, phasicity: Biphasic Dorsalis pedis artery: 73.3 cm/s, phasicity: Biphasic ANKLE-BRACHIAL INDEX: Right: 1.26? Left: 1.23 ANKLE PRESSURES: Right: PT 158, DP 153 Left: PT?154, DP?136 ANKLE PVR WAVEFORMS: Right: Normal Left: Normal US/US arterial duplex LE BI IMPRESSION: Right leg: Normal ankle brachial index and PVR waveforms. Normal arterial duplex. Left leg: Normal ankle brachial index and PVR waveforms. Normal arterial duplex. KEMI Reference: - >1.4 = calcified vessels - 0.9 - 1.4 = normal - no significant arterial disease - 0.7 - 0.89 = mild peripheral arterial disease - 0.51 - 0.69 = moderate peripheral arterial disease - ? 0.50 = severe peripheral arterial disease - < .30 = critical arterial disease
== END 2023-10-10 13:07 | disposition home or self-care (01) ==
LOC: HO.US 13:06
PROVIDERS: PCP Internal Medicine; Visit Provider Surgery Vascular Surgery
DX: I73.9 Peripheral vascular disease, unspecified (principal)
CPT/HCPCS: 93923; 93925

== ENCOUNTER 2023-10-17 10:18 | Outpatient (AMB) | payer MEDICARE, MEDICAID, SELFPAY ==
[2023-10-17 10:21] VITALS: BP 114/74; PULSE 91; O2SAT 96; BMI 20.5
--- NOTE | 2023-10-17 10:21 | MHC.OFFVIS ---
Intake Vital Signs 10/17/23 10:21 Height 5 ft 8 in Weight 135 lb BMI 20.5 BP 114/74 Blood Pressure Location Lt brachial Position Sitting Pulse 91 Pulse Source Pulse Oximeter Pulse Oximetry (%) 96 Oxygen Delivery Method Room Air Intake Visit Reasons: arterial US follow up Intake Note: Pt presents to the office today for a arterial US follow up. Pt states she has had a lot of ankle pain recently. Pt denies any numbness or swelling. Pt states she has discoloration in both ankles. Pt states her right ankle is worse at this time. Allergies adhesive Allergy (Verified 10/17/23 10:22) peels 1st layer of skin HPI arterial US follow up HPI Details Very pleasant 73-year-old female presents for follow-up regarding peripheral vascular disease. She has undergone noninvasive arterial ultrasound. Upon discussion with her she describes more of a neuropathy and pain radiating down her back. In addition she has ankle pain which is been a significant source of discomfort. She does have a history of diabetes and smokes about a pack a day. She is being maintained on Xarelto for AFib. She now presents for follow-up with noninvasive arterial testing. Also of note she is being maintained on a statin [facility] Medical History Chronic kidney disease, stage III (moderate) Pure hypercholesterolemia Abdominal discomfort Shortness of breath Right lumbar radiculopathy Abnormal CBC measurement Crohn's disease History of Graves' disease Vitamin D deficiency Opiate dependence Bullous pemphigoid Type 1 diabetes mellitus with unspecified complications Essential hypertension Paroxysmal atrial flutter Paroxysmal atrial fibrillation Diabetes mellitus type 1 Surgical History History of bowel resection History of thyroid nodule Family History Father CVD (cardiovascular disease) Pacemaker Mother Constipation Sister Thyroid disease Social History Household Members: None Household Members Other:: Single lives jyoti Housing: House Alcohol intake: former Patient Tobacco Use Status: Current everyday Tobacco user Tobacco use type: Cigarette Cigarette Packs Per Day: 1 e-Cigarette/Vaping Use: Never Used Second Hand Smoke Exposure: No service: No Current occupational status: disabled Current occupation: On disability since 2001 -nerve damage in foot Cognitive needs: Yes Hearing needs: No Vision needs: Yes Review of Systems Const All systems reviewed & are unremarkable except as noted in HPI and below Reports no additional complaints ENT Reports Normal hearing present Card Denies chest pain, Denies chest pain at rest, Denies chest pain with activity and Denies pedal edema Resp Denies cough GI Denies abdominal pain Musc Denies abnormal gait, Denies muscle cramps and Denies radiating pain into limb Skin/Breast Denies skin ulcer and Denies wounds Neuro Reports Normal hearing present and Denies abnormal gait Psych Reports no additional complaints Physical Exam Vital Signs: Last Vital Signs Pulse 91 10/17/23 10:21 BP 114/74 10/17/23 10:21 Pulse Ox 96 10/17/23 10:21 Oxygen Delivery Method Room Air 10/17/23 10:21 BMI result Body Mass Index 20.5 Const General: cooperative, healthy appearing and comfortable Orientation/consciousness: oriented to person, oriented to place and oriented to time HEENT Head: Yes normal to inspection Neck Neck: Yes normal visual inspection Carotids: no bruits Chest Chest palpation & inspection: normal inspection of the chest Resp Effort & Inspection: normal respiratory effort and able to speak in complete sentences Auscultation: clear to auscultation bilaterally, no crackles, no rales, no rhonchi and no wheezes Cardio Other: Palpable bilateral DP pulses Rate: regular rate Rhythm: regular rhythm Heart sounds: S1 normal heart sound present and S2 normal heart sound present Bruits: no carotid bruits Peripheral pulses: Peripheral pulses 2+ throughout GI Inspection: Yes normal to inspection Skin Wounds: no wounds Hair: normal Neuro General: oriented to person, oriented to place and oriented to time Cranial nerves: Yes CN's II-XII intact bilaterally and Yes Normal hearing present Cognition (Neuro): normal cognition Motor exam (neuro): 5/5 motor strength present throughout Extrem Other: venous exam: No significant superficial varicosities or spider telangiectasias, minimal edema General: No clubbing, No cyanosis and No edema Psych Appearance: grossly normal Mental Status: mental status grossly normal Speech and movement: Normal speech and movement present Results Reviewed Results Reviewed: Noninvasive arterial testing dated 10/10/2023 demonstrates KEMI on the right of 1.26 and on the left of 1.23. Written report and images were reviewed. Assessment & Plan Assessment & Plan (1) PAD (peripheral artery disease): Code(s): I73.9 - Peripheral vascular disease, unspecified Plan: In short patient has stable claudication. I do believe that the majority of her pain is neurogenic in nature and she may have even an element of arthritis in particular that ankle. I did review the pathophysiology of peripheral vascular disease with the patient. In addition we did discuss routine conservative measures including a healthy diet and the importance of exercise and ambulation. We did discuss risk factor modification. The patient will continue to to follow-up with surveillance follow-up in approximately 1 year. Thank you for allowing us to participate in this patient's care. If there are any questions or concerns please do not hesitate to contact us. Orders: Orders US arterial duplex LE BI 364 Days I73.9 - Peripheral vascular disease, unspecified Coding Level of Care Code Est Pt Level 4 (84072) Diagnoses PAD (peripheral artery disease) I73.9
== END 2023-10-17 10:44 | disposition home or self-care (01) ==
PROVIDERS: PCP Internal Medicine; Visit Provider Surgery Vascular Surgery
DX: I73.9 Peripheral vascular disease, unspecified (principal)
CPT/HCPCS: 99213

== ENCOUNTER → 2023-10-17 10:18 | Outpatient (BNVA) | payer MEDICARE, MEDICAID, SELFPAY | PROVIDERS: PCP Internal Medicine; Visit Provider Surgery Vascular Surgery | DX: I73.9 Peripheral vascular disease, unspecified (principal) | CPT/HCPCS: 99212 ==

== ENCOUNTER 2023-11-02 10:44 | Outpatient (AMB) | payer MEDICARE, MEDICAID, SELFPAY ==
[2023-11-02 10:49] VITALS: BP 126/78; BMI 19.9
--- NOTE | 2023-11-02 10:49 | MHC.PC.OV ---
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: No Accompanied by: Self / Same As Patient Allergies adhesive Allergy (Verified 11/02/23 10:54) peels 1st layer of skin Medication List - Last Reconciled 11/02/23 by Koki Crane MD acetaminophen ER 1,300 mg PO Q12H alendronate 70 mg PO QWEEK 90 days allopurinol 100 mg PO DAILY atorvastatin 40 mg PO BEDTIME 90 days blood sugar diagnostic (Accu-Chek Deepa Plus test strips) test 6x daily Type 1; blood sugar diagnostic (Blood Glucose Test strips) Use 1 test strip four times a day clobetasol 0.05% 1 appl topical DAILY diltiazem HCl 180 mg PO BID 90 days estradiol 0.01%(0.1mg/gram) vaginal flash glucose sensor (FreeStyle Tico 3 Sensor kit) As directed gabapentin 100 mg PO DAILY hydromorphone 2 mg PO Q8H PRN 30 days insulin aspart U-100 (Novolog FlexPen U-100 Insulin aspart) 15 units (0.15 mL) subcut .four times a day PRN 90 days insulin glargine (Basaglar KwikPen U-100 Insulin) 21 units subcut DAILY latanoprost 0.005% 1 drp ophthalmic (eye) BEDTIME metoprolol succinate ER 50 mg PO DAILY midodrine 5 mg PO TID 30 days naloxone 4 mg/actuation (Narcan) 4 mg intranasal Q2M PRN pen needle, diabetic Use 1 needle four times a day prednisone 2 mg PO DAILY rivaroxaban (Xarelto) 15 mg PO DAILY 90 days torsemide 40 mg (2 x 20 mg) PO DAILY 90 days Tobacco use date assessed: 11/02/23 Fall risk assessment: No Falls in past year Last assessed Fall Risk: 11/02/23 Dental Screening Dental Screen Date: 11/02/23 Did you have a dental visit in the last 12 months?: No Did you have a dental problem in the last 6 months where you did not have access to dental care?: No Was dental information given to patient?: Patient has dentist HPI HPI Comments History of Present Illness Details This is a 73 year old female with diabetes mellitus type 1 on senior care current use of insulin. Crohn's disease, persistent atrial fibrillation and hyperliidemia that comes today for follow up on her conditions. A1c elevated but has improved. Crohn's disease has not been follow by Gastroenterology for over a year. She said that Crohn's was diagnose on her colectomy and has never had a colonoscopy because she has constantly refused. Will be referred to Gastroenterology again. Atrial fibrillation has been stable and this is follow by cardiology. Denies any palpitations. Last LDL in June 2023 was within goal. Walks with a walker for gait stability due to chronic low back pain which is follow by [facility]. She has moderate to severe obstructive sleep apnea from a home sleep study done 2020 which she does not remember having it. She has moderate to severe obstructive sleep apnea and started using a CPAP machine but did not tolerated. She refused to use a CPAP machine. She saw pulmonology Dr. Pierson in 2020 and did not want to see him again. He is on other pulmonology DrBerta Former that as per patient did a pulmonary function test and told her that she does not have COPD. She has been a smoker since her 20s and smokes a pack a day. She said she is sleeping during the day most likely due to obstructive sleep apnea. She drives and I told her that she is running the risk of falling asleep while driving and having an accident. [facility] Medical History (Updated 11/02/23 @ 12:03 by Koki Crane MD) Chronic kidney disease, stage III (moderate) Pure hypercholesterolemia Abdominal discomfort Shortness of breath Right lumbar radiculopathy Abnormal CBC measurement Crohn's disease History of Graves' disease Vitamin D deficiency Opiate dependence Bullous pemphigoid Type 1 diabetes mellitus with unspecified complications Essential hypertension Paroxysmal atrial flutter Paroxysmal atrial fibrillation Diabetes mellitus type 1 Surgical History History of bowel resection History of thyroid nodule Family History Father CVD (cardiovascular disease) Pacemaker Mother Constipation Sister Thyroid disease Social History Household Members: None Household Members Other:: Single lives jyoti Housing: House Alcohol intake: former Patient Tobacco Use Status: Current everyday Tobacco user Tobacco use type: Cigarette Cigarette Packs Per Day: 1 e-Cigarette/Vaping Use: Never Used Second Hand Smoke Exposure: No service: No Current occupational status: disabled Current occupation: On disability since 2001 -nerve damage in foot Cognitive needs: Yes Hearing needs: No Vision needs: Yes Questionnaire PHQ-9 Over the last 2 weeks, how often have you been bothered by any of the following problems? 1. Little interest or pleasure in doing things: not at all 2. Feeling down, depressed, or hopeless: not at all 3. Trouble falling or staying asleep, or sleeping too much: not at all 4. Feeling tired or having little energy: not at all 5. Poor appetite or overeating: not at all 6. Feeling bad about yourself - or that you are a failure or have let yourself or your family down: not at all 7. Trouble concentrating on things, such as reading the newspaper or watching television: not at all 8. Moving or speaking so slowly that other people could have noticed. Or the opposite - being so fidgety or restless that you have been moving around a lot more than usual: not at all 9. Thoughts that you would be better off or of hurting yourself in some way: not at all Total score: 0 Depression Screening Interpretation: Negative Depression Screening Done: Yes 05205 - PHQ-9 Billing: Yes Source: Developed by Drs. Kieran Summers, Jlilian Abrams, Gregg Paris and colleagues, with an educational edmond from [employer]. Thrive Questionnaire Date Thrive assessed: 11/02/23 I am a: Patient What is your living situation today?: I have a steady place to live Within the past 12 months, did the food you bought not last and you didn't have the money to get more?: Never true Within the past 12 months, did you worry whether your food would run out before you got money to buy more?: Never true Do you have trouble paying for medicines?: No Do you have trouble getting transportation to medical appointments?: No Do you have trouble paying your heating and electricity bill?: No Do you have trouble taking care of your child, family member or friend?: No Do you have trouble with day-to-day activities such as bathing, preparing meals, shopping, managing finances, etc.?: Yes Are you currently unemployed and looking for a job?: No Are you interested in more education?: No Please select the resources that you would like help with: None Currently or been in a relationship where the following occur: no concerns reported AUDIT C Alcohol Use Questionnaire (AUDIT-C) 1. How often do you have a drink containing alcohol?: Never Total Score: 0 HIWOT-7 AMB Questionnaire HIWOT-7 Date HIWOT - 7 assessed: 11/02/23 Feeling nervous, anxious, or on edge: 0 = Not at all Not being able to stop or control worryin = Not at all Worrying too much about different things: 0 = Not at all Trouble relaxin = Not at all Being so restless that it is hard to sit still: 0 = Not at all Becoming easily annoyed or irritable: 0 = Not at all Feeling afraid as if something awful might happen: 0 = Not at all Total HIWOT-7 score (0-4 normal; 5-9 mild; 10-14 moderate; 15-21 severe): 0 Source: Developed by Drs. Kieran Summers, Jillian Abrams, Gregg Paris and colleagues, with an educational edmond from [employer]. HIWOT-7 Assessment Billing HIWOT-7 Assessment Tool: HIWOT-7 Assessment 26388 Review of Systems Const All systems reviewed & are unremarkable except as noted in HPI and below Eyes Reports no additional complaints, Denies change in vision and Denies other visual disturbances Card Denies chest pain at rest, Denies chest pain with activity, Denies edema, Denies irregular heart rhythm, Denies claudication, Denies dyspnea, Denies dyspnea on exertion, Denies orthopnea, Denies paroxysmal nocturnal dyspnea and Denies slow heart rate Resp Denies cough, Denies dyspnea and Denies dyspnea on exertion GI Denies abdominal pain, Denies change in bowel habits, Denies excessive flatus, Denies nausea and Denies vomiting Denies urinary incontinence, Denies urinary hesitancy and Denies urinary urgency Musc Denies abnormal gait, Reports back pain, Denies atrophy, Denies deformity and Denies limited range of motion Skin/Breast Denies bleeding lesions, Denies changing lesions and Denies rash Neuro Denies abnormal gait and Denies lack of coordination Physical exam (Primary Care) Vital Signs: Last Vital Signs BP 126/78 11/02/23 10:49 BMI result Body Mass Index 19.9 Tobacco/Smoking Status: Tobacco use Status Tobacco use date assessed 11/02/23 11/02/23 11:01 Patient Tobacco Use Status Current everyday Tobacco 11/02/23 11:01 Tobacco use type Cigarette 11/02/23 11:01 e-Cigarette/Vaping Use Never Used 11/02/23 11:01 PHQ-9: PHQ-9 Score PHQ-9: Total score 0 11/02/23 11:16 Depression Screening Interpretation: Negative Thrive Assessment: Date of Thrive Assessment Date Thrive assessed 11/02/23 11/02/23 11:01 Currently or been in a relationship where the following occur: no concerns reported Eyes General: appearance normal, both eyes and all related structures Eyelids: Yes eyelids normal Conjunctivae: conjunctivae normal Neck Neck: Yes normal visual inspection and Yes supple Resp Effort & Inspection: normal respiratory effort Auscultation: clear to auscultation bilaterally Cardio Jugular venous distension: no JVD Rate: regular rate Rhythm: regular rhythm Heart sounds: S1 normal heart sound present and S2 normal heart sound present Extrem General: Yes full ROM Office Procedures Flu Questionnaire Does the patient have a severe egg allergy?: No Results AMB Hemoglobin A1c AMB Hemoglobin A1c 7.7 % Last Edit by KEV Rodriguez on 11/02/23 11:03 Immunizations flu vacc [id number] 6mos up(PF) 60 mcg(15 mcgx4)/0.5 mL IM syringe Performing Provider: Koki Crane MD Performing Location: [facility] [place] [facility] Documented (not given) by: KEV Rodriguez on 11/02/23 11:02 Reason Not Given: Patient Refused Results Reviewed Results Reviewed: Laboratory Last Values Hgb A1c (Clinic) 7.7 % (4.0-6.0) H 11/02/23 11:02 Assessment and Plan Assessment & Plan (1) Persistent atrial fibrillation: Code(s): I48.19 - Other persistent atrial fibrillation Plan: Continue diltiazem. Follow-up with Cardiology. The goal is heart rate control. Continue Xarelto. (2) Crohn's disease: Code(s): K50.90 - Crohn's disease, unspecified, without complications Plan: Follow-up with Gastroenterology. (3) Diabetes mellitus type 1: Code(s): E10.9 - Type 1 diabetes mellitus without complications Plan: Continue insulin. A1c goal is equal or less than 7% (4) Hyperlipidemia LDL goal <70: Code(s): E78.5 - Hyperlipidemia, unspecified Plan: Continue statins. LDL goal is less than 70. Orders: Orders AMB Hemoglobin A1c Today E10.9 - Type 1 diabetes mellitus without complications Influenza [id number] Immunization Today Z23 - Encounter for immunization Referrals Gastroenterology Referral K50.90 - Crohn's disease, unspecified, without complications Medications: New acetaminophen ER 1,300 mg (2 x 650 mg) PO Q12H 30 days PRN 120 tabs 2RF pain Changed From insulin glargine (Basaglar KwikPen U-100 Insulin) 25 units (0.25 mL) subcut DAILY 90 days 22.5 mL 2RF To insulin glargine (Basaglar KwikPen U-100 Insulin) 21 units subcut DAILY Coding Level of Care Code Est Pt Level 4 (58940) Diagnoses Persistent atrial fibrillation I48.19 Crohn's disease K50.90 Diabetes mellitus type 1 E10.9 Hyperlipidemia LDL goal <70 E78.5 Additional Codes HIWOT-7 Assessment Billing - HIWOT-7 Assessment Tool: HIWOT-7 Assessment 04144 ([id number]) Time Spent (min) 25
== END 2023-11-02 11:35 | disposition home or self-care (01) ==
PROVIDERS: Visit Provider Internal Medicine
DX: I48.19 Other persistent atrial fibrillation (principal); K50.90 Crohn's disease, unspecified, without complications; E10.9 Type 1 diabetes mellitus without complications; E78.5 Hyperlipidemia, unspecified
CPT/HCPCS: 83036; 99214

== ENCOUNTER 2024-01-18 14:39 | Outpatient (REF) | payer MEDICARE, MEDICAID, SELFPAY ==
--- NOTE | ~2024-01-18 | MR_ITS ---
MR LUMBAR SPINE WITHOUT IV CONTRAST CLINICAL INFORMATION: Perineural cyst. Lumbar radiculopathy. COMPARISON: Lumbar spine radiographs 05/15/2017. TECHNIQUE: MRI of the lumbar spine was obtained using routine sequences without contrast. FINDINGS: There are 5 nonrib-bearing lumbar-type vertebral bodies. There is grade 1 degenerative anterolisthesis of L3 on L4. Lumbar alignment is otherwise maintained. The vertebral body heights are preserved. There is no bone marrow edema. There are no acute fractures. There is mild disc volume loss at L3-L4. There is disc desiccation at all lumbar levels. Multiple perineural cysts throughout the lumbar neural foramen and within the sacrum bilaterally. Conus terminates at the L1 level. Sigmoid diverticulosis. Combination of simple and proteinaceous cysts within the kidneys bilaterally that are better evaluated on prior abdominal MRI. The L1-L2 and the L2-L3 disc contours are normal. There is mild bilateral facet arthropathy at both of these levels. No central canal stenosis and no foraminal stenosis at these levels. L3-L4: There is grade 1 degenerative anterolisthesis with uncovered disc. Diffuse annular disc bulge and moderate bilateral facet arthropathy and ligamentum flavum thickening. No significant central canal stenosis and no significant foraminal stenosis. Small bilateral foraminal perineural cysts. L4-L5: Diffuse annular disc bulge and moderate bilateral facet arthropathy and ligamentum flavum thickening. Bilateral facet joint effusions. No central canal stenosis. No significant foraminal stenosis. Small right foraminal perineural cysts. L5-S1: Diffuse annular disc bulge and moderate bilateral facet arthropathy. No central canal stenosis. No foraminal stenosis. Small bilateral foraminal perineural cysts. There are partially imaged perineural cysts within the sacrum. MR/MR lumbar spine wo con IMPRESSION: * There are multiple perineural cysts throughout the lumbar neural foramen and within the sacrum bilaterally. * At L3-L4, there is grade 1 degenerative anterolisthesis in the setting of moderate bilateral facet arthropathy. * At L4-L5, there is a small annular disc bulge and there is moderate bilateral facet arthropathy with associated bilateral facet joint effusions. No significant central canal stenosis nor significant foraminal stenosis at this level. * At L5-S1, there is a small annular disc bulge and there is moderate bilateral facet arthropathy. No significant central canal stenosis nor significant foraminal stenosis at this level. * Sigmoid diverticulosis.
== END 2024-01-18 14:40 | disposition home or self-care (01) ==
LOC: HO.MRI 14:39
PROVIDERS: PCP Internal Medicine; Visit Provider Internal Medicine
DX: G96.191 Perineural cyst (principal)
CPT/HCPCS: 72148

== ENCOUNTER 2024-02-01 12:55 | Outpatient (REF) | payer MEDICARE, MEDICAID, SELFPAY ==
--- NOTE | ~2024-02-01 | XR_ITS ---
EXAMINATION: XR LUMBOSACRAL SPINE WITH FLEXION AND EXTENSION CLINICAL INFORMATION: Low back pain, unspecified COMPARISON: MRI lumbar spine TECHNIQUE: AP, neutral lateral and lateral flexion and extension views of the lumbar spine. FINDINGS: There 5 nonrib-bearing lumbar-type vertebral bodies. The height of the vertebral bodies is well-maintained. There is grade 1 degenerative anterolisthesis of L3 on L4. This is without significant change on flexion and extension. There is disc space narrowing at L3-L4. There is multilevel degenerative facet joint disease throughout the lumbar spine. XR/XR lumbar spine 4V min IMPRESSION: 1. Degenerative disc disease at L3-L4. 2. Multilevel degenerative facet joint disease. 3. Grade 1 degenerative anterolisthesis of L3 on L4 without significant change on flexion and extension.
== END 2024-02-01 12:56 | disposition home or self-care (01) ==
LOC: HO.HOSX 12:55
PROVIDERS: PCP Internal Medicine; Visit Provider Physician Assistant
DX: M54.50 Low back pain, unspecified (principal)
CPT/HCPCS: 72110; 99202

== ENCOUNTER 2024-02-01 12:55 | Outpatient (AMB) | payer MEDICARE, MEDICAID, SELFPAY ==
--- NOTE | 2024-02-01 12:58 | HO.SPINEOV ---
Intake Visit Reasons: Tarlov cyst Intake Note: Ms. Peck is here today c/o Low back pain MRI shows Tarlov Cyst. 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 She is a very nice 74-year-old diabetic female with history of back pain which she believe may have started sometime few years after she took a fall that ended up fracturing her hip. She reports that it somewhere on the lumbosacral junction. She does not have any radicular pain down her legs. She recently underwent an injection at [facility] with modest relief. She takes hydromorphone, gabapentin and Tylenol throughout the day to help with the symptoms. She recently had an MRI done showing some degenerative disc disease and Tarlov cyst. She comes in today for evaluation. Her pain is aggravated with standing walking and does get better if she lays down. PMH: She is diabetic, history of osteoporosis, AFib on Xarelto, chronic kidney disease, Crohn's disease, kidney stones, colon resection, pinning of her hip after her fracture, peripheral artery disease, cataracts, sleep apnea, macrocytic anemia, vitamin-D deficiency, bullous pemphigoid, she was chronically on prednisone but recently stopped that Social hx: She smokes a pack a day, she does not drink or use any recreational drugs. Medications: Tylenol, Fosamax, allopurinol, Lipitor, clobetasol, diltiazem, torsemide, Xarelto, gabapentin, Tylenol, estradiol, hydromorphone, insulin, latanoprost, midodrine, metoprolol Allergies: Adhesive tapes Physical exam: She is awake alert oriented able stand up on her own out of a chair, she walks with a walker, she reports tenderness over the lumbosacral junction, strength and reflexes in the lower extremities grossly normal. Imaging review: The patient has imaging done at [facility] including an MRI of the lumbar spine showing what looks like [id number] degenerative disc disease, slight spondylolisthesis at L3-4. She has numerous Tarlov cysts throughout her lumbar and sacral foramina. Impression: 74-year-old female presents to the office today for evaluation of chronic low back pain for 2 years which she believes may have happened a few years after a fall which she sustained a hip fracture. There is some mild to moderate degenerative changes on her lumbar spine. There is a grade 1 spondylolisthesis at L3-4. I sent her for flexion-extension x-rays. There is no signs of i nstablity on the imaging to suggest her spondylolisthesis is source of her pain. We would recommend she continue wiht conservative treatment and all the options availabe at [facility] are reasonable. With regard to her Tarlov cysts, these are incidental and not related to mechanical back pain symptoms. They are longstanding, and do not need any further follow-up evaluation. She can follow up with us down the road if something changes. Thank you for allowing us to care for your patient. The total time spent with this visit with this patient was 45 minutes reviewing history, physical exam, lumbar imaging review, and implementation of treatment plan or further diagnostic testing Jameson Borrero MD,PhD [facility] Orders: Orders XR lumbar spine 4V min Today M54.50 - Low back pain, unspecified
== END 2024-02-01 14:08 | disposition home or self-care (01) ==
PROVIDERS: PCP Internal Medicine; Referring Provider Internal Medicine; Visit Provider Physician Assistant
DX: M54.50 Low back pain, unspecified (principal)
CPT/HCPCS: 99204

== ENCOUNTER 2024-04-09 09:55 | Outpatient (AMB) | payer MEDICARE, MEDICAID, SELFPAY ==
[2024-04-09 10:03] VITALS: BP 112/70; BMI 19.6
--- NOTE | 2024-04-09 10:03 | A.OFFPC_ITS ---
Vital Signs 04/09/24 10:03 Height 5 ft 8 in Weight 129 lb BMI 19.6 BP 112/70 Blood Pressure Location Lt brachial Position Sitting Intake Visit Reasons: [facility] 04/03 fall Resource Manager Required: No Accompanied by: Self / Same As Patient Allergies adhesive Allergy (Verified 04/09/24 10:20) peels 1st layer of skin Medication List - Last Reconciled 04/09/24 by Koki Crane MD alendronate 70 mg PO QWEEK 90 days allopurinol 100 mg PO DAILY atorvastatin 40 mg PO BEDTIME 90 days blood sugar diagnostic (Blood Glucose Test strips) Use 1 test strip four times a day blood sugar diagnostic (Accu-Chek Deepa Plus test strips) test 6x daily Type 1; clobetasol 0.05% 1 appl topical DAILY diltiazem HCl CD 180 mg PO BID 90 days estradiol 0.01%(0.1mg/gram) vaginal flash glucose sensor (FreeStyle Tico 3 Sensor kit) As directed gabapentin 100 mg PO DAILY hydromorphone 2 mg PO Q8H PRN 30 days insulin aspart U-100 (Novolog FlexPen U-100 Insulin aspart) 15 units (0.15 mL) subcut .four times a day PRN 90 days insulin glargine (Basaglar KwikPen U-100 Insulin) 21 units (0.21 mL) subcut DAILY 90 days insulin glargine (Lantus Solostar U-100 Insulin) 25 units (0.25 mL) subcut QAM 90 days insulin lispro (Humalog KwikPen (U-100) Insulin) 15 units (0.15 mL) subcut .every 6 hours 30 days latanoprost 0.005% 1 drp ophthalmic (eye) BEDTIME metoprolol succinate ER 50 mg PO DAILY midodrine 5 mg PO TID 30 days naloxone 4 mg/actuation (Narcan) 4 mg intranasal Q2M PRN pen needle, diabetic Use 1 needle four times a day rivaroxaban (Xarelto) 15 mg PO DAILY 90 days torsemide 40 mg (2 x 20 mg) PO DAILY 90 days Tobacco use date assessed: 11/02/23 Fall risk assessment: 1 Fall in past year Last assessed Fall Risk: 04/09/24 Dental Screening Dental Screen Date: 11/02/23 HPI HPI Comments History of Present Illness Details This is a 74-year-old female with diabetes mellitus type 1 on long-term current use of insulin, atrial fibrillation, opioid dependence and Crohn's disease that comes today as rehab discharge follow-up from [facility] will bring him dated 04/03/2024 due to coccyalgia. She went to [facility] ER 03/12/2024 after falling the day before and hitting her back. She had x-ray which showed no fracture as per patient but was transferred to rehab facility. They increase the gabapentin and Dilaudid there. She has an appointment with spine surgeon this week. Walks with a walker for gait stability. Feels somewhat improved. A1c is elevated and I will increase Lantus from 23 units to 25 units. She has not compliant with diet. On chronic anticoagulation for atrial fibrillation. O n Dilaudid for her chronic back pain and her opioid dependence is well control. Crohn's disease is follow by Gastroenterology. Cardiology follows atrial fibrillation. [facility] Medical History (Updated 04/09/24 @ 12:21 by Koki Crane MD) Fracture of sacrum Fracture of second lumbar vertebra Afib Arterial insufficiency of lower extremity Chronic kidney disease, stage III (moderate) Pure hypercholesterolemia Abdominal discomfort Shortness of breath Right lumbar radiculopathy Abnormal CBC measurement Crohn's disease History of Graves' disease Vitamin D deficiency Opiate dependence Bullous pemphigoid Type 1 diabetes mellitus with unspecified complications Essential hypertension Paroxysmal atrial flutter Paroxysmal atrial fibrillation Diabetes mellitus type 1 Surgical History History of bowel resection History of thyroid nodule Family History Father CVD (cardiovascular disease) Pacemaker Mother Constipation Sister Thyroid disease Social History Household Members: None Household Members Other:: Single lives jyoti Housing: House Alcohol intake: former Patient Tobacco Use Status: Current everyday Tobacco user Tobacco use type: Cigarette Cigarette Packs Per Day: 1 e-Cigarette/Vaping Use: Never Used Second Hand Smoke Exposure: No service: No Current occupational status: disabled Current occupation: On disability since 2001 -nerve damage in foot Cognitive needs: Yes Hearing needs: No Vision needs: Yes Questionnaire Thrive Questionnaire Date Thrive assessed: 11/02/23 HIWOT-7 AMB Questionnaire HIWOT-7 Date HIWOT - 7 assessed: 11/02/23 Source: Developed by Drs. Kieran Summers, Jillian Abrams, Gregg Paris and colleagues, with an educational edmond from [employer]. Review of Systems Const All systems reviewed & are unremarkable except as noted in HPI and below Card Denies chest pain at rest, Denies chest pain with activity, Denies edema, Denies irregular heart rhythm, Denies claudication, Denies dyspnea, Denies dyspnea on exertion, Denies orthopnea, Denies paroxysmal nocturnal dyspnea and Denies slow heart rate Resp Denies cough, Denies dyspnea and Denies dyspnea on exertion Musc Reports back pain Physical exam (Primary Care) Vital Signs: Last Vital Signs BP 112/70 04/09/24 10:03 BMI result Body Mass Index 19.6 Tobacco/Smoking Status: Tobacco use Status Tobacco use date assessed 11/02/23 04/09/24 10:12 Patient Tobacco Use Status Current everyday Tobacco 04/09/24 10:12 Tobacco use type Cigarette 04/09/24 10:12 e-Cigarette/Vaping Use Never Used 04/09/24 10:12 Are you ready to quit: No Tobacco cessation counseling provided: Yes Items discussed: QuitWorks Relapse Prevention: discussed the importance of a supportive environment, discussed negative mood or depression after quitting, weight gain after smoking is common and discussed dietary, exercise and/or lifestyle changes Number of minutes spent counselin CPT code: 83175 - 4-10 Minutes Thrive Assessment: Date of Thrive Assessment Date Thrive assessed 11/02/23 04/09/24 10:12 Const General: cooperative Limitations: ambulation with walker Resp Effort & Inspection: normal respiratory effort Auscultation: clear to auscultation bilaterally Cardio Jugular venous distension: no JVD Rate: regular rate Rhythm: regular rhythm Heart sounds: S1 normal heart sound present and S2 normal heart sound present Extrem General: Yes full ROM Results AMB Hemoglobin A1c AMB Hemoglobin A1c 7.8 % Last Edit by KEV Rodriguez on 04/09/24 10:3 6 Results Reviewed Results Reviewed: Laboratory Last Values Hgb A1c (Clinic) 7.8 % (4.0-6.0) H 04/09/24 10:18 Assessment and Plan Assessment & Plan (1) Hospital discharge follow-up: Code(s): Z09 - Encounter for follow-up examination after completed treatment for conditions other than malignant neoplasm Plan: Discharge date 04/03/2024 due to sacral pain. Pain is mildly improved and I will increase Dilaudid and gabapentin. (2) Coccyalgia: Code(s): M53.3 - Sacrococcygeal disorders, not elsewhere classified Plan: Dilaudid was increased. Gabapentin was also increased. Follow-up with spine surgeon this week. (3) Persistent atrial fibrillation: Code(s): I48.19 - Other persistent atrial fibrillation Plan: Continue diltiazem and chronic anticoagulation. The goal is heart rate control. Follow-up with Cardiology. (4) Crohn's disease: Code(s): K50.90 - Crohn's disease, unspecified, without complications Qualifiers: Gastrointestinal tract location: unspecified location Digestive disease complication type: without complication Qualified Code(s): K50.90 - Crohn's disease, unspecified, without complications Plan: Follow-up with Gastroenterology. (5) Type 1 diabetes mellitus with unspecified complications: Code(s): E10.8 - Type 1 diabetes mellitus with unspecified complications Plan: Continue short-acting insulin. Increase long-acting insulin to 25 units. A1c goal is equal or less than 7%. (6) Opiate dependence: Code(s): F11.20 - Opioid dependence, uncomplicated Qualifiers: Substance use status: uncomplicated Qualified Code(s): F11.20 - Opioid dependence, uncomplicated Plan: Continue Dilaudid. Orders: Orders XR sacrum coccyx min 2V Today M53.3 - Sacrococcygeal disorders, not elsewhere classified AMB Hemoglobin A1c Today E10.9 - Type 1 diabetes mellitus without complications Medications: New hydromorphone Partial Fill upon patient request. 4 mg PO Q6H 30 days PRN 120 tabs 0RF pain Changed From gabapentin 100 mg PO DAILY To gabapentin 100 mg PO .four times a day 30 days 120 caps 2RF Refilled insulin glargine (Lantus Solostar U-100 Insulin) 25 units (0.25 mL) subcut QAM 90 days 22.5 mL 3RF E10.9 - Type 1 diabetes mellitus without complications Discontinued hydromorphone Partial Fill upon patient request. Discontinued Reason: Patient Completed Course 2 mg PO Q8H 30 days PRN 90 tabs 0RF pain G89.4 - Chronic pain syndrome Coding Level of Care Code TCM Mod MDM <= 7 Days Complex EM visit Add On G2211 Diagnoses Hospital discharge follow-up Z09 Coccyalgia M53.3 Persistent atrial fibrillation I48.19 Crohn's disease without complication, unspecified gastrointestinal tract location K50.90 Gastrointestinal tract location: unspecified location Digestive disease complication type: without complication Type 1 diabetes mellitus with unspecified complications E10.8 Uncomplicated opioid dependence F11.20 Substance use status: uncomplicated Additional Codes Vital Signs *Quality* - CPT code: 94542 - 4-10 Minutes ([id number]) Time Spent (min) 26
== END 2024-04-09 10:39 | disposition home or self-care (01) ==
PROVIDERS: PCP Internal Medicine; Visit Provider Internal Medicine
DX: E10.9 Type 1 diabetes mellitus without complications (principal); I48.19 Other persistent atrial fibrillation; K50.90 Crohn's disease, unspecified, without complications; F11.20 Opioid dependence, uncomplicated; M53.3 Sacrococcygeal disorders, not elsewhere classified
CPT/HCPCS: 83036; 99214

== ENCOUNTER 2024-10-15 12:44 | Outpatient (REF) | payer MEDICARE, MEDICAID, SELFPAY ==
--- OUTSIDE RECORDS SUMMARY | 2024-10-15 12:47 | XMS_ITS | Clinical Summary ---
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 Active 04-04 00:00: 00 OTHER CHRONIC PAIN Active 04-04 00:00: 00 TYPE 2 DIABETES MELLITUS W DIABETIC CHRONIC KIDNEY DISEASE Active 04-04 00:00: 00 HYPERTENSIVE CHRONIC KIDNEY DISEASE W STG 1-4/UNSP CHR KDNY Active 04-04 00:00: 00 CHRONIC KIDNEY DISEASE, STAGE 2 (MILD) Active 04-04 00:00: 00 HYPERLIPIDEM IA, UNSPECIFIED Active 04-04 00:00: 00 RADICULOPATH Y, LUMBAR REGION Active 04-04 00:00: 00 ORTHOSTATIC HYPOTENSION Active 04-04 00:00: 00 TYPE 2 DIABETES MELLITUS WITH DIABETIC POLYNEUROPAT HY Active 04-04 00:00: 00 UNSPECIFIED GLAUCOMA Active 04-04 00:00: 00 GOUT, UNSPECIFIED Active 04-04 00:00: 00 RESIDENTIAL (CURRENT) USE OF INSULIN Active 04-04 00:00: 00 RESIDENTIAL (CURRENT) USE OF ANTICOAGULAN TS Active 04-04 00:00: 00 Allergies, Adverse Reactions, Alerts Allergy Name Allergy Type Status Severity Reaction(s) Onset Date Inactive Date Treating Clinician Comments ADHESIVE Propensity to adverse reactions Active 2024-03 17:59:3 6 Medications Ordered Medication Name Filled Medication Name Start Date Stop Date Current Medication? Ordering Clinician Indication Dosage Frequency Signature (SIG) Comments Components azathioprin e 50 mg tablet 03-21 00:00: 00 08-24 23:59 :00 No [id number] 1 tablet EVERY AM 1 tablet EVERY AM (route: oral) Med Classific ation: Immunosup pressive Agents Belbuca 900 mcg buccal film 03-21 00:00: 00 05-17 00:00 :00 No [id number] 1 film EVERY 12 HOURS 1 film EVERY 12 HOURS (route: buccal) Med Classific ation: Analgesic , Anti-infl ammatory or Antipyret ic metoprolol succinate ER 25 mg tablet,exte nded release 24 hr 03-21 00:00: 00 05-17 00:00 :00 No [id number] 1 tablet DAILY 1 tablet DAILY (route: oral) Med Classific ation: Cardiovas cular Therapy Agents Multaq 400 mg tablet 03-21 00:00: 00 08-24 23:59 :00 No [id number] 1 tablet EVERY 12 HOURS 1 tablet EVERY 12 HOURS (route: oral) Med Classific ation: Cardiovas cular Therapy Agents prednisone 5 mg tablet 03-21 00:00: 00 08-24 23:59 :00 No [id number] 1 tablet DAILY 1 tablet DAILY (route: oral) Med Classific ation: Endocrine Tylenol 325 mg capsule 03-21 00:00: 00 08-24 23:59 :00 No [id number] 3 capsule EVERY 8 HOURS 3 capsule EVERY 8 HOURS (route: oral) Med Classific ation: Analgesic , Anti-infl ammatory or Antipyret ic DILT-XR 180 mg capsule, extended release 03-29 00:00: 00 08-24 23:59 :00 No [id number] 1 capsule EVERY AM 1 capsule EVERY AM (route: oral) Med Classific ation: Cardiovas cular Therapy Agents torsemide 20 mg tablet 03-29 00:00: 00 05-17 00:00 :00 No [id number] 40 mg 2 TIMES DAILY 40 mg 2 TIMES DAILY (route: oral) Med Classific ation: Cardiovas cular Therapy Agents Basaglar KwikPen U-100 Insulin 100 unit/mL (3 mL) subcutaneou s 05-17 00:00: 00 08-24 23:59 :00 No [id number] 15 unit BEDTIME 15 unit [facility] ([facility] Med Classific ation: Endocrine digoxin 125 mcg (0.125 mg) tablet 05-17 00:00: 00 08-24 23:59 :00 No [id number] 1 tablet EVERY AM 1 tablet EVERY AM (route: oral) Med Classific ation: Cardiovas cular Therapy Agents Dilaudid 2 mg tablet 05-17 00:00: 00 08-24 23:59 :00 No [id number] 6 mg EVERY 6 HOURS 6 mg EVERY 6 HOURS (route: oral) Med Classific ation: Analgesic , Anti-infl ammatory or Antipyret ic latanoprost 0.005 % eye drops 05-17 00:00: 00 08-24 23:59 :00 No [id number] 1 drops BEDTIME 1 drops BEDTIME (route: ophthalmic (eye)) Med Classific ation: Ophthalmi c Agents metoprolol succinate ER 25 mg tablet,exte nded release 24 hr 05-17 00:00: 00 08-24 23:59 :00 No [id number] 75 mg EVERY AM 75 mg EVERY AM (route: oral) Med Classific ation: Cardiovas cular Therapy Agents midodrine 10 mg tablet 05-17 00:00: 00 08-24 23:59 :00 No [id number] 10 mg EVERY AM 10 mg EVERY AM (route: oral) Med Classific ation: Cardiovas cular Therapy Agents Novolog Mix 70-30 FlexPen U-100 Insulin 100 unit/mL subcutaneou s pen 05-17 00:00: 00 08-24 23:59 :00 No [id number] Per instruc tions DIRECTED Per instructio ns DIRECTED ([facility] Med Classific ation: Endocrine ProAir HFA 90 mcg/actuati on aerosol inhaler 05-17 00:00: 00 08-24 23:59 :00 No [id number] 2 puff EVERY 4 HOURS 2 puff EVERY 4 HOURS (route: inhalation ) Med Classific ation: Respirato ry Therapy Agents Xarelto 15 mg tablet 05-17 00:00: 00 08-24 23:59 :00 No [id number] 15 mg EVERY AM 15 mg EVERY AM (route: oral) Med Classific ation: Hematolog ical Agents alendronate 70 mg tablet 05-05 00:00: 00 03-12 23:59 :00 No [id number] 1 tablet WEEKLY 1 tablet WEEKLY (route: oral) Med Classific ation: Endocrine allopurinol 100 mg tablet 05-05 00:00: 00 03-12 23:59 :00 No [id number] 1 tablet BEDTIME 1 tablet BEDTIME (route: oral) Med Classific ation: Gout and Hyperuric emia Therapy atorvastati n 40 mg tablet 05-05 00:00: 00 03-12 23:59 :00 No [id number] 1 tablet BEDTIME 1 tablet BEDTIME (route: oral) Med Classific ation: Cardiovas cular Therapy Agents clobetasol 0.05 % lotion 05-05 00:00: 00 03-12 23:59 :00 No [id number] Per instruc tions 2 TIMES DAILY Per instructio ns 2 TIMES DAILY (route: topical) Med Classific ation: Dermatolo gical diltiazem CD 240 mg capsule,ext ended release 24 hr 05-05 00:00: 00 03-12 23:59 :00 No [id number] 1 capsule DAILY 1 capsule DAILY (route: oral) Med Classific ation: Cardiovas cular Therapy Agents gabapentin 100 mg capsule 05-05 00:00: 00 03-12 23:59 :00 No [id number] 1 capsule BEDTIME 1 capsule BEDTIME (route: oral) Med Classific ation: Central Nervous System Agents hydromorpho ne 2 mg tablet 05-05 00:00: 00 03-12 23:59 :00 No [id number] 1 tablet EVERY 6 HOURS 1 tablet EVERY 6 HOURS (route: oral) Med Classific ation: Analgesic , Anti-infl ammatory or Antipyret ic insulin glargine (U-100) 100 unit/mL subcutaneou s solution 05-07 00:00: 00 03-12 23:59 :00 No [id number] 28 unit BEDTIME 28 unit BEDTIME (route: [facility]) Med Classific ation: Endocrine latanoprost 0.005 % eye drops 05-05 00:00: 00 03-12 23:59 :00 No [id number] 1 drops BEDTIME 1 drops BEDTIME (route: ophthalmic (eye)) Med Classific ation: Ophthalmi c Agents metoprolol tartrate 50 mg tablet 05-05 00:00: 00 06-05 23:59 :00 No [id number] 1 tablet 3 TIMES DAILY 1 tablet 3 TIMES DAILY (route: oral) Med Classific ation: Cardiovas cular Therapy Agents midodrine 5 mg tablet 05-07 00:00: 00 03-12 23:59 :00 No [id number] 1 tablet DIRECTED 1 tablet DIRECTED (route: oral) Med Classific ation: Cardiovas cular Therapy Agents Multivitami n 50 Plus tablet 05-05 00:00: 00 03-12 23:59 :00 No [id number] 1 tablet DAILY 1 tablet DAILY (route: oral) Med Classific ation: Electroly te Balance-N utritiona l Products potassium chloride ER 20 mEq tablet,exte nded release 05-05 00:00: 00 03-12 23:59 :00 No [id number] 1 tablet DAILY 1 tablet DAILY (route: oral) Med Classific ation: Electroly te Balance-N utritiona l Products prednisone 5 mg tablet 05-05 00:00: 00 03-12 23:59 :00 No [id number] 1 tablet DAILY 1 tablet DAILY (route: oral) Med Classific ation: Endocrine torsemide 20 mg tablet 05-05 00:00: 00 03-12 23:59 :00 No [id number] 1 tablet 2 TIMES DAILY 1 tablet 2 TIMES DAILY (route: oral) Med Classific ation: Cardiovas cular Therapy Agents Xarelto 15 mg tablet 05-05 00:00: 00 03-12 23:59 :00 No [id number] 1 tablet DAILY 1 tablet DAILY (route: oral) Med Classific ation: Hematolog ical Agents metoprolol tartrate 25 mg tablet 06-05 00:00: 00 03-12 23:59 :00 No [id number] 1 tablet 2 TIMES DAILY 1 tablet 2 TIMES DAILY (route: oral) Med Classific ation: Cardiovas cular Therapy Agents latanoprost 0.005 % eye drops 03-27 00:00: 00 Yes [id number] Per instruc tions DAILY Per instructio ns DAILY (route: ophthalmic (eye)) Med Classific ation: Ophthalmi c Agents hydromorpho ne 2 mg tablet 03-08 00:00: 00 Yes [id number] Unavailable Per instruc tions EVERY 8 HOURS NEEDED Per instructio ns EVERY 8 HOURS NEEDED (route: oral) Med Classific ation: Analgesic , Anti-infl ammatory or Antipyret ic allopurinol 100 mg tablet 03-07 00:00: 00 Yes [id number] 1 tablet BEDTIME 1 tablet BEDTIME (route: oral) Med Classific ation: Gout and Hyperuric emia Therapy torsemide 20 mg tablet 03-06 00:00: 00 Yes [id number] 1 tablet 2 TIMES DAILY 1 tablet 2 TIMES DAILY (route: oral) Med Classific ation: Cardiovas cular Therapy Agents alendronate 70 mg tablet 04-06 00:00: 00 Yes [id number] 1 tablet WEEKLY 1 tablet WEEKLY (route: oral) Med Classific ation: Endocrine atorvastati n 40 mg tablet 04-04 00:00: 00 Yes [id number] 1 tablet BEDTIME 1 tablet BEDTIME (route: oral) Med Classific ation: Cardiovas cular Therapy Agents diltiazem CD 180 mg capsule,ext ended release 24 hr 04-04 00:00: 00 Yes [id number] 1 capsule DAILY 1 capsule DAILY (route: oral) Med Classific ation: Cardiovas cular Therapy Agents gabapentin 100 mg capsule 04-04 00:00: 00 04-18 23:59 :00 No [id number] 2 capsule 3 TIMES DAILY 2 capsule 3 TIMES DAILY (route: oral) Med Classific ation: Central Nervous System Agents Humalog KwikPen (U-100) Insulin 100 unit/mL subcutaneou s 04-04 00:00: 00 Yes [id number] Per instruc tions DIRECTED Per instructio ns DIRECTED (route: [facility]) Med Classific ation: Endocrine Lantus Solostar U-100 Insulin 100 unit/mL (3 mL) subcutaneou s pen 04-04 00:00: 00 Yes [id number] 23 unit BEDTIME 23 unit BEDTIME (route: [facility]) Med Classific ation: Endocrine metoprolol succinate ER 50 mg tablet,exte nded release 24 hr 04-04 00:00: 00 Yes [id number] 1 tablet DAILY 1 tablet DAILY (route: oral) Med Classific ation: Cardiovas cular Therapy Agents midodrine 5 mg tablet 04-04 00:00: 00 Yes [id number] 1 tablet 3 TIMES DAILY 1 tablet 3 TIMES DAILY (route: oral) Med Classific ation: Cardiovas cular Therapy Agents Xarelto 15 mg tablet 04-04 00:00: 00 Yes [id number] 1 tablet BEDTIME 1 tablet BEDTIME (route: oral) Med Classific ation: Hematolog ical Agents gabapentin 100 mg capsule 04-18 00:00: 00 Yes [id number] 1 capsule 4 TIMES DAILY 1 capsule 4 TIMES DAILY (route: oral) Med Classific ation: Central Nervous System Agents torsemide 20 mg tablet 05-03 00:00: 00 Yes [id number] 1 tablet DAILY 1 tablet DAILY (route: oral) Med Classific ation: Cardiovas cular Therapy Agents Immunizations Ordered Immunization Name Filled Immunization Name Date Status Comments Refusal Reason INFLUENZA, TIV (INACTIVATED) 2023-07-18 00:00:00 Vital Signs Vital Name Observation Time Observation Value Commen ts Temperature 2024-05-29 11:27:00.000 97.1 [degF] Temperature 2024-05-22 08:54:00.000 98.6 [degF] Temperature 2024-05-15 09:18:00.000 97.9 [degF] Temperature 2024-05-09 13:28:00.000 97.7 [degF] Temperature 2024-05-03 11:19:00.000 99.4 [degF] Temperature 2024-04-24 11:04:00.000 97.9 [degF] Temperature 2024-04-19 16:01:00.000 97.1 [degF] Temperature 2024-04-10 10:46:00.000 98.7 [degF] Temperature 2024-04-08 14:15:00.000 97.8 [degF] Temperature 2024-04-08 12:39:00.000 97.9 [degF] Temperature 2024-04-04 14:38:00.000 98 [degF] BMI (%) 2024-04-04 14:25:47.000 19 kg/m2 Height 2024-04-04 14:23:09.000 67 [in_us] Pulse 2024-05-29 11:27:00.000 76 /min Pulse 2024-05-22 08:54:00.000 80 /min Pulse 2024-05-15 09:18:00.000 95 /min Pulse 2024-05-09 13:28:00.000 72 /min Pulse 2024-05-03 11:19:00.000 78 /min Pulse 2024-04-24 11:04:00.000 78 /min Pulse 2024-04-19 16:01:00.000 86 /min Pulse 2024-04-10 10:46:00.000 90 /min Pulse 2024-04-08 14:15:00.000 76 /min Pulse 2024-04-08 12:39:00.000 92 /min Pulse 2024-04-04 14:38:00.000 76 /min O2 Saturation (%) 2024-05-29 11:27:00.000 96 % O2 Saturation (%) 2024-05-22 08:54:00.000 100 % O2 Saturation (%) 2024-05-15 09:18:00.000 98 % O2 Saturation (%) 2024-05-09 13:28:00.000 98 % O2 Saturation (%) 2024-05-03 11:19:00.000 97 % O2 Saturation (%) 2024-04-24 11:04:00.000 96 % O2 Saturation (%) 2024-04-19 16:01:00.000 97 % O2 Saturation (%) 2024-04-10 10:46:00.000 95 % O2 Saturation (%) 2024-04-08 12:39:00.000 99 % O2 Saturation (%) 2024-04-04 14:38:00.000 97 % Respirations 2024-05-29 11:27:00.000 18 /min Respirations 2024-05-22 08:54:00.000 18 /min Respirations 2024-05-15 09:18:00.000 18 /min Respirations 2024-05-09 13:28:00.000 18 /min Respirations 2024-05-03 11:19:00.000 20 /min Respirations 2024-04-24 11:04:00.000 20 /min Respirations 2024-04-10 10:46:00.000 18 /min Respirations 2024-04-08 14:15:00.000 18 /min Respirations 2024-04-08 12:39:00.000 16 /min Respirations 2024-04-04 14:38:00.000 18 /min Weight (lbs) 2024-05-29 11:27:00.000 130 [lb_av] Weight (lbs) 2024-05-09 13:28:00.000 132 [lb_av] Weight (lbs) 2024-04-04 14:25:47.000 125 [lb_av] Systolic Blood Pressure 2024-05-29 11:27:00.000 124 mm [Hg] Systolic Blood Pressure 2024-05-22 08:54:00.000 134 mm [Hg] Systolic Blood Pressure 2024-05-15 09:18:00.000 118 mm [Hg] Systolic Blood Pressure 2024-05-09 13:28:00.000 120 mm [Hg] Systolic Blood Pressure 2024-05-03 11:19:00.000 124 mm [Hg] Systolic Blood Pressure 2024-04-24 11:04:00.000 110 mm [Hg] Systolic Blood Pressure 2024-04-19 16:01:00.000 122 mm [Hg] Systolic Blood Pressure 2024-04-10 10:46:00.000 128 mm [Hg] Systolic Blood Pressure 2024-04-08 14:15:00.000 128 mm [Hg] Systolic Blood Pressure 2024-04-08 12:39:00.000 130 mm [Hg] Systolic Blood Pressure 2024-04-04 14:38:00.000 134 mm [Hg] Diastolic Blood Pressure 2024-05-29 11:27:00.000 70 mm [Hg] Diastolic Blood Pressure 2024-05-22 08:54:00.000 86 mm [Hg] Diastolic Blood Pressure 2024-05-15 09:18:00.000 62 mm [Hg] Diastolic Blood Pressure 2024-05-09 13:28:00.000 62 mm [Hg] Diastolic Blood Pressure 2024-05-03 11:19:00.000 78 mm [Hg] Diastolic Blood Pressure 2024-04-24 11:04:00.000 62 mm [Hg] Diastolic Blood Pressure 2024-04-19 16:01:00.000 68 mm [Hg] Diastolic Blood Pressure 2024-04-10 10:46:00.000 64 mm [Hg] Diastolic Blood Pressure 2024-04-08 14:15:00.000 76 mm [Hg] Diastolic Blood Pressure 2024-04-08 12:39:00.000 72 mm [Hg] Diastolic Blood Pressure 2024-04-04 14:38:00.000 74 mm [Hg] Plan of Treatment Planned Activity Planned Date Details Comments Future Scheduled Test SKILLED NU RSE TO EVALUATE PATIENT, IDENTIFY PRIMARY AND CO-MORBID CONDITIONS CODED PER CODING GUIDELINES, AND DEVELOP PATIENT SPECIFIC PLAN OF CARE THAT INCLUDES PATIENT GOAL FOR HOME HEALTH. [code = SKILLED NURSE TO EVALUATE PATIENT, IDENTIFY PRIMARY AND CO-MORBID CONDITIONS CODED PER CODING GUIDELINES, AND DEVELOP PATIENT SPECIFIC PLAN OF CARE THAT INCLUDES PATIENT GOAL FOR HOME HEALTH.] Future Scheduled Test SKILLED NU RSE TO REVIEW PATIENT MEDICATIONS. INSTRUCT PATIENT/CAREGIVER ON MONITORING OF EFFECTIVENESS, ADVERSE DRUG REACTIONS, SIDE EFFECTS OF ALL MEDICATIONS (PRESCRIPTION/-OTC), AND HOW AND WHEN TO REPORT PROBLEMS. [code = SKILLED NURSE TO REVIEW PATIENT MEDICATIONS. INSTRUCT PATIENT/CAREGIVER ON MONITORING OF EFFECTIVENESS, ADVERSE DRUG REACTIONS, SIDE EFFECTS OF ALL MEDICATIONS (PRESCRIPTION/-OTC), AND HOW AND WHEN TO REPORT PROBLEMS.] Future Scheduled Test SKILLED NU RSE FOR O/A, TEACHING RELATED TO CROHN'S DZ, CONSTIPATION, DIARRHEA FOR EARLY IDENTIFICATION OF EXACERBATION OF DISEASE PROCESS. [code = SKILLED NURSE FOR O/A, TEACHING RELATED TO CROHN'S DZ, CONSTIPATION, DIARRHEA FOR EARLY IDENTIFICATION OF EXACERBATION OF DISEASE PROCESS.] Future Scheduled Test SKILLED NU RSE FOR O/A, TEACHING AND MANAGEMENT OF CKD FOR EARLY IDENTIFICATION OF EXACERBATION OF DISEASE PROCESS [code = SKILLED NURSE FOR O/A, TEACHING AND MANAGEMENT OF CKD FOR EARLY IDENTIFICATION OF EXACERBATION OF DISEASE PROCESS] Future Scheduled Test SKILLED NU RSE FOR O/A OF MUSCULOSKELETAL STATUS AND TEACHING ON MEASURES TO MANAGE CHONIC BACK PAIN MAINTAIN SAFETY WITH ACTIVITY [code = SKILLED NURSE FOR O/A OF MUSCULOSKELETAL STATUS AND TEACHING ON MEASURES TO MANAGE CHONIC BACK PAIN MAINTAIN SAFETY WITH ACTIVITY] Future Scheduled Test SKILLED NU RSE FOR O/A AND SKILLED TEACHING IN MANAGEMENT OF DM POLYNEUROPATHY DISEASE. [code = SKILLED NURSE FOR O/A AND SKILLED TEACHING IN MANAGEMENT OF DM POLYNEUROPATHY DISEASE.] Future Scheduled Test PHYSICAL T HERAPIST TO EVALUATE PATIENT FOR GAIT STABILITY AND STRENGTH MD [code = PHYSICAL THERAPIST TO EVALUATE PATIENT FOR GAIT STABILITY AND STRENGTH MD ] Future Scheduled Test SKILLED NU RSE TO INSTRUCT PATIENT/CAREGIVER ON SIGNS AND SYMPTOMS, RISK FACTORS, COMPLICATIONS, AND MANAGEMENT OF ATRIAL FIBRILLATION. [code = SKILLED NURSE TO INSTRUCT PATIENT/CAREGIVER ON SIGNS AND SYMPTOMS, RISK FACTORS, COMPLICATIONS, AND MANAGEMENT OF ATRIAL FIBRILLATION.] Future Scheduled Test SKILLED NU RSE FOR O/A AND TEACHING ON SIGNS AND SYMPTOMS AND MANAGEMENT OF HYPOTENSION [code = SKILLED NURSE FOR O/A AND TEACHING ON SIGNS AND SYMPTOMS AND MANAGEMENT OF HYPOTENSION] Future Scheduled Test SKILLED NU RSE FOR O/A AND TEACHING OF DIABETIC MANAGEMENT INCLUDING BLOOD SUGAR MONITORING/USE OF GLUCOMETER, DIABETIC DIET, LOWER EXTREMITY SKIN INSPECTION, PROPER SKIN/FOOT CARE, AND SIGNS AND SYMPTOMS HYPO/HYPERGLYCEMIA TO REPORT. [code = SKILLED NURSE FOR O/A AND TEACHING OF DIABETIC MANAGEMENT INCLUDING BLOOD SUGAR MONITORING/USE OF GLUCOMETER, DIABETIC DIET, LOWER EXTREMITY SKIN INSPECTION, PROPER SKIN/FOOT CARE, AND SIGNS AND SYMPTOMS HYPO/HYPERGLYCEMIA TO REPORT.] Future Scheduled Test SKILLED NU RSE FOR O/A AND SKILLED TEACHING RELATED TO SIGNS AND SYMPTOMS AND MANAGEMENT OF DORSALGIA, RADICULOPATHY, GOUT. [code = SKILLED NURSE FOR O/A AND SKILLED TEACHING RELATED TO SIGNS AND SYMPTOMS AND MANAGEMENT OF DORSALGIA, RADICULOPATHY, GOUT.] Future Scheduled Test VIRTUAL SIT FREQUENCY: 1-6 PER WEEK X 3 WEEKS AND 6 PRN VIRTUAL VISITS MAY BE PERFORMED UTILIZING TELECOMMUNICATIONS SYSTEM TO OPTIMIZE SKILLED SERVICES FURNISHED ON THE PLAN OF CARE. SKILLED NURSE TO ESTABLISH SUPPORT MEASURES TO MINIMIZE RISK OF REHOSPITALIZATION, AND INSTRUCT PATIENT/CAREGIVER ON METHODS TO REDUCE AVOIDABLE HOSPITALIZATION. [code = VIRTUAL VISIT FREQUENCY: 1-6 PER WEEK X 3 WEEKS AND 6 PRN VIRTUAL VISITS MAY BE PERFORMED UTILIZING TELECOMMUNICATIONS SYSTEM TO OPTIMIZE SKILLED SERVICES FURNISHED ON THE PLAN OF CARE. SKILLED NURSE TO ESTABLISH SUPPORT MEASURES TO MINIMIZE RISK OF REHOSPITALIZATION, AND INSTRUCT PATIENT/CAREGIVER ON METHODS TO REDUCE AVOIDABLE HOSPITALIZATION.] Future Scheduled Test PATIENT MCGHEE S A RISK OF HOSPITALIZATION AND ED USE. SKILLED NURSE TO ESTABLISH SUPPORT MEASURES TO MINIMIZE RISK OF HOSPITALIZATION AND ED USE, AND INSTRUCT PATIENT/CAREGIVER ON METHODS TO REDUCE AVOIDABLE HOSPITALIZATION AND ED USE. [code = PATIENT HAS A RISK OF HOSPITALIZATION AND ED USE. SKILLED NURSE TO ESTABLISH SUPPORT MEASURES TO MINIMIZE RISK OF HOSPITALIZATION AND ED USE, AND INSTRUCT PATIENT/CAREGIVER ON METHODS TO REDUCE AVOIDABLE HOSPITALIZATION AND ED USE.] Future Scheduled Test SKILLED NU RSE TO PROVIDE INSTRUCTION TO PATIENT/CAREGIVER RELATED TO DISCHARGE PLANNING. [code = SKILLED NURSE TO PROVIDE INSTRUCTION TO PATIENT/CAREGIVER RELATED TO DISCHARGE PLANNING.] Future Scheduled Test SKILLED NU RSE TO PERFORM HOME SAFETY AND FALL ASSESSMENT AND PROVIDE INSTRUCTION TO IMPLEMENT HOME SAFETY AND FALL PREVENTION STRATEGIES. [code = SKILLED NURSE TO PERFORM HOME SAFETY AND FALL ASSESSMENT AND PROVIDE INSTRUCTION TO IMPLEMENT HOME SAFETY AND FALL PREVENTION STRATEGIES.] Future Scheduled Test SKILLED NU RSE FOR OBSERVATION AND ASSESSMENT OF PATIENTS PAIN LEVEL AND EFFECTIVENESS OF PAIN MANAGEMENT REGIMEN. SKILLED NURSE TO INSTRUCT PATIENT/CAREGIVER REGARDING PHARMACOLOGIC AND NON-PHARMACOLOGIC PAIN CONTROL MEASURES. SKILLED NURSE TO REPORT TO PHYSICIAN IF PAIN IS UNCONTROLLED WITH CURRENT PAIN MANAGEMENT REGIMEN. [code = SKILLED NURSE FOR OBSERVATION AND ASSESSMENT OF PATIENTS PAIN LEVEL AND EFFECTIVENESS OF PAIN MANAGEMENT REGIMEN. SKILLED NURSE TO INSTRUCT PATIENT/CAREGIVER REGARDING PHARMACOLOGIC AND NON-PHARMACOLOGIC PAIN CONTROL MEASURES. SKILLED NURSE TO REPORT TO PHYSICIAN IF PAIN IS UNCONTROLLED WITH CURRENT PAIN MANAGEMENT REGIMEN.] Future Scheduled Test SKILLED NU RSE TO ASSESS PATIENT'S SKIN INTEGRITY AND INSTRUCT PATIENT/CAREGIVER ON MEASURES TO PREVENT PRESSURE ULCERS. [code = SKILLED NURSE TO ASSESS PATIENT'S SKIN INTEGRITY AND INSTRUCT PATIENT/CAREGIVER ON MEASURES TO PREVENT PRESSURE ULCERS.] Future Scheduled Test SKILLED NU RSE FOR O/A OF SIGNS AND SYMPTOMS OF SUBSTANCE USE. INSTRUCT PATIENT ON RELATED RISKS AND WILL NOTIFY PHYSICIAN/PROVIDER NEEDED. [code = SKILLED NURSE FOR O/A OF SIGNS AND SYMPTOMS OF SUBSTANCE USE. INSTRUCT PATIENT ON RELATED RISKS AND WILL NOTIFY PHYSICIAN/PROVIDER NEEDED.] Future Scheduled Test PHYSICAL T HERAPY TO EVALUATE AND TREAT. PHYSICAL THERAPY EVALUATION PERFORMED. NO ADDITIONAL VISITS REQUIRED. [code = PHYSICAL THERAPY TO EVALUATE AND TREAT. PHYSICAL THERAPY EVALUATION PERFORMED. NO ADDITIONAL VISITS REQUIRED.] Goal 2024-05-29 Patient Goal - GET STRONGER Goal Provider Goal - A PLAN OF CARE WILL BE ESTABLISHED THAT MEETS PATIENT'S CARE HOME NEEDS AND INCLUDES PATIENT GOAL FOR HOME HEALTH. Goal Provider Goal - PATIENT/CAREGIVER WILL VERBALIZE UNDERSTANDING OF EDUCATION PROVIDED ON MEDICATIONS BY THE END OF THE CERTIFICATION PERIOD. Goal Provider Goal - EXACERBATIONS OF GASTROINTESTINAL DISEASE WILL BE PROMPTLY IDENTIFIED AND INTERVENTIONS IMPLEMENTED TO MINIMIZE RISKS TO PATIENT BY END OF EPISODE. Goal Provider Goal - PATIENT/CAREGIVER WILL VERBALIZE UNDERSTANDING OF GENITOURINARY DISEASE PROCESS, AND EXACERBATIONS OF GENITOURINARY DISEASE WILL BE PROMPTLY IDENTIFIED FOR EARLY INTERVENTION THROUGHOUT THE CERTIFICATION PERIOD. Goal Provider Goal - PATIENT/CAREGIVER WILL VERBALIZE/DEMONSTRATE ABILITY TO MANAGE MUSCULOSKELETAL DISEASE WHILE MAINTAINING SAFETY THROUGHOUT THE EPISODE. Goal Provider Goal - PATIENT/CAREGIVER WILL VERBALIZE/DEMONSTRATE THE ABILITY TO MANAGE CIRCULATORY DISEASE PROCESS AND EXACERBATIONS WILL BE IDENTIFIED FOR EARLY INTERVENTION THROUGHOUT THE CERTIFICATION PERIOD. Goal Provider Goal - A PHYSICAL THERAPY EVALUATION TO BE COMPLETED WITH RECOMMENDATIONS AND/OR WRITTEN PLAN OF TREATMENT ESTABLISHED FOR PHYSICIANS SIGNATURE. Goal Provider Goal - PATIENT/CAREGIVER WILL VERBALIZE UNDERSTANDING OF SIGNS AND SYMPTOMS, COMPLICATIONS, AND MANAGEMENT OF ATRIAL FIBRILLATION THROUGHOUT THE CERTIFICATION PERIOD. Goal Provider Goal - PATIENT/CAREGIVER WILL VERBALIZE SIGNS AND SYMPTOMS OF HYPOTENSION AND WILL BE ABLE TO DEMONSTRATE ABILITY TO MANAGE EXACERBATION BY END OF THE EPISODE. Goal Provider Goal - PATIENT/CAREGIVER WILL VERBALIZE/DEMONSTRATE KNOWLEDGE OF DIABETIC MANAGEMENT. CHANGES IN DIABETIC STATUS WILL BE IDENTIFIED AND REPORTED TO PHYSICIAN FOR PROMPT INTERVENTION THROUGHOUT THE CERTIFICATION PERIOD. Goal Provider Goal - PATIENT/CAREGIVER WILL VERBALIZE UNDERSTANDING OF MUSCULOSKELETAL DISEASE INCLUDING SIGNS AND SYMPTOMS, MANAGEMENT, AND PRESCRIBED TREATMENT REGIMEN BY END OF EPISODE. Goal Provider Goal - PATIENT/CAREGIVER WILL UTILIZE VIRTUAL VISITS TO ACHIEVE GOALS OUTLINED ON THE PLAN OF CARE. PATIENT WILL HAVE SUPPORT MEASURES ESTABLISHED TO PREVENT HOSPITALIZATION AND PATIENT/CAREGIVER WILL VERBALIZE/DEMONSTRATE METHODS TO REDUCE AVOIDABLE HOSPITALIZATION THROUGHOUT THE CERTIFICATION PERIOD. Goal Provider Goal - PATIENT WILL HAVE SUPPORT MEASURES ESTABLISHED TO PREVENT HOSPITALIZATION AND ED USE AND PATIENT/CAREGIVER WILL VERBALIZE/DEMONSTRATE METHODS TO REDUCE AVOIDABLE HOSPITALIZATION AND ED USE BY END OF EPISODE. Goal Provider Goal - PATIENT/CAREGIVER WILL VERBALIZE UNDERSTANDING OF DISCHARGE PLANNING INSTRUCTIONS BY DATE OF DISCHARGE. Goal Provider Goal - PATIENT/CAREGIVER WILL VERBALIZE/DEMONSTRATE EFFECTIVE HOME SAFETY AND FALL PREVENTION STRATEGIES THROUGHOUT CERTIFICATION PERIOD. Goal Provider Goal - PATIENT/CAREGIVER WILL DEMONSTRATE UNDERSTANDING OF PHARMACOLOGIC AND NONPHARMACOLOGIC PAIN CONTROL MEASURES AND PATIENT WILL HAVE IMPROVEMENT IN PAIN INTERFERING WITH ACTIVITY EVIDENCED BY PAIN CONTROLLED AT LEVEL OF 7 OR LESS BY END OF CERTIFICATION PERIOD. Goal Provider Goal - PATIENT/CAREGIVER WILL VERBALIZE UNDERSTANDING OF PRESSURE ULCER PREVENTION BY END OF THE EPISODE. Goal Provider Goal - PATIENT WILL REMAIN SAFE IN COMMUNITY AND WILL ACKNOWLEDGE RELATED RISKS OF SUBSTANCE USE THROUGHOUT CERTIFICATION PERIOD. Goal Provider Goal - [id number]. PHYSICAL THERAPY EVALUATION ONLY COMPLETED PER PATIENT REQUEST. PATIENT IS A74 YO FEMALE SP HOSPITALIZATION FOR FALL AT HOME WITH RESULTING COCCYX PAIN, NO FRACTURES. PMHX AFIB, CHROHNS,HLD,CHRONIC PAIN, IDDMII,GOUT, SLEEP APNEA. VITALS ARE STABLE, PAIN REPORTED 2/10 IN COCCYX. IND WITH BED MOBILITY WITHOUT DEVICE. INDEPENDENT TRANSFERS WITH 4WW, INDEPENDENT AMBULATION WITH 4WW ON EVEN AND UNEVEN SURFACES GREATER THAN 200FT AND WALKING DOG 3-4/A DAY WITHOUT DIFFICULTY. PATIENT EDUCATED ON PAIN MANAGEMENT OF COCCYX PAIN WITH ICE, HEAT, POSITIONING OF PILLOWS TO BUTTOCKS FOR SACRAL SPARING PRESSURE. NO FURTHER PT AT THIS TIME Reason for Visit INDEPENDENT WITH USE OF ASSISTIVE DEVICE Encounters Start Date/Time End Date/Time Encounter Type Admission Type Attending Clinicians Care Facility Care Department Encounter ID Discharge Date Discharge Status Discharge Condition Discharge Reason Percent Goals Met 2024-04-04 00:00:00 2024-05-29 00:00:00 Outpatient MARIS PUCKETT [facility] [id number] 2024-05-29 00:00:00 DISCHARGE TO HOME OR SELF CARE INDEPENDEN T WITH USE OF ASSISTIVE DEVICE GOALS MET ( ONLY) 84.21
== END 2024-10-15 12:45 | disposition home or self-care (01) ==
LOC: HO.US 12:44
PROVIDERS: PCP Internal Medicine; Visit Provider Surgery Vascular Surgery
DX: I73.9 Peripheral vascular disease, unspecified (principal)
CPT/HCPCS: 93922; 93925

== ENCOUNTER → 2024-10-15 12:46 | Outpatient (BNV) | payer MEDICARE, MEDICAID, SELFPAY | PROVIDERS: PCP Internal Medicine; Visit Provider Radiology Diagnostic Radiology | DX: I70.203 Unspecified atherosclerosis of native arteries of extremities, bilateral legs (principal) | CPT/HCPCS: 93922; 93925 ==

== ENCOUNTER 2024-11-12 13:45 | Outpatient (AMB) | payer MEDICARE, MEDICAID, SELFPAY ==
--- NOTE | 2024-11-12 13:51 | MHC.OFFVIS ---
Intake Visit Reasons: follow up s/p arterial US 10/15/24 Intake Note: Patient presents for arterial US performed on 10/15/24. No complaints. Accompanied by: Self / Same As Patient Allergies adhesive Allergy (Verified 11/12/24 13:58) peels 1st layer of skin HPI HPI follow up s/p arterial US 10/15/24: Details: Very pleasant 74-year-old female presents for follow-up regarding peripheral vascular disease. She had undergone noninvasive testing back in September of 2023 and now presents for surveillance follow-up in September of 2024. At that time she was complaining of lower extremity pain. She also had some ankle pain which appears to have gone on to resolve. She reports she is doing fairly well ambulating well no other issues at the current time she can walk a block or 2 with no significant difficulty. Of note she does continue to smoke and she is a diabetic. She is being maintained on Xarelto and a statin. [facility] Medical History Fracture of sacrum Fracture of second lumbar vertebra Afib Arterial insufficiency of lower extremity Chronic kidney disease, stage III (moderate) Pure hypercholesterolemia Abdominal discomfort Shortness of breath Right lumbar radiculopathy Abnormal CBC measurement Crohn's disease History of Graves' disease Vitamin D deficiency Opiate dependence Bullous pemphigoid Type 1 diabetes mellitus with unspecified complications Essential hypertension Paroxysmal atrial flutter Paroxysmal atrial fibrillation Diabetes mellitus type 1 Surgical History History of bowel resection History of thyroid nodule Family History Father CVD (cardiovascular disease) Pacemaker Mother Constipation Sister Thyroid disease Social History Household Members: None Household Members Other:: Single lives jyoti Housing: House Alcohol intake: former Patient Tobacco Use Status: Current everyday Tobacco user Tobacco use type: Cigarette Cigarette Packs Per Day: 1 e-Cigarette/Vaping Use: Never Used Second Hand Smoke Exposure: No service: No Current occupational status: disabled Current occupation: On disability since 2001 -nerve damage in foot Cognitive needs: Yes Hearing needs: No Vision needs: Yes Review of Systems Const All systems reviewed & are unremarkable except as noted in HPI and below Reports no additional complaints ENT Reports Normal hearing present Card Denies chest pain, Denies chest pain at rest, Denies chest pain with activity and Denies pedal edema Resp Denies cough GI Denies abdominal pain Musc Denies abnormal gait, Denies muscle cramps and Denies radiating pain into limb Skin/Breast Denies skin ulcer and Denies wounds Neuro Reports Normal hearing present and Denies abnormal gait Psych Reports no additional complaints Physical Exam Const General: cooperative, healthy appearing and comfortable Orientation/consciousness: oriented to person, oriented to place and oriented to time HEENT Head: Yes normal to inspection Neck Neck: Yes normal visual inspection Carotids: no bruits Chest Chest palpation & inspection: normal inspection of the chest Resp Effort & Inspection: normal respiratory effort and able to speak in complete sentences Auscultation: clear to auscultation bilaterally, no crackles, no rales, no rhonchi and no wheezes Cardio Other: Bilateral DP signals Rate: regular rate Rhythm: regular rhythm Heart sounds: S1 normal heart sound present and S2 normal heart sound present Bruits: no carotid bruits Peripheral pulses: Peripheral pulses 2+ throughout GI Inspection: Yes normal to inspection Skin Wounds: no wounds Hair: normal Neuro General: oriented to person, oriented to place and oriented to time Cranial nerves: Yes CN's II-XII intact bilaterally and Yes Normal hearing present Cognition (Neuro): normal cognition Motor exam (neuro): 5/5 motor strength present throughout Extrem Other: venous exam: No significant superficial varicosities or spider telangiectasias, minimal edema General: No clubbing, No cyanosis and No edema Psych Appearance: grossly normal Mental Status: mental status grossly normal Speech and movement: Normal speech and movement present Results Reviewed Results Reviewed: Noninvasive arterial testing dated 10/15/2024 demonstrates KEMI on the right of 1.17 and on the left of 1.12. Written report and images were reviewed. Assessment & Plan Assessment & Plan (1) PAD (peripheral artery disease): Code(s): I73.9 - Peripheral vascular disease, unspecified Category: Medical Plan: In short patient has stable claudication. I did review the pathophysiology of peripheral vascular disease with the patient. In addition we did discuss routine conservative measures including a healthy diet and the importance of exercise and ambulation. We did discuss risk factor modification. The patient will continue to to follow-up with surveillance follow-up in approximately 1 year. Thank you for allowing us to participate in this patient's care. If there are any questions or concerns please do not hesitate to contact us. Orders: Orders US arterial duplex LE BI 1 Year I73.9 - Peripheral vascular disease, unspecified Coding Level of Care Code Est Pt Level 4 (42138) Complex EM visit Add On G2211 Diagnoses PAD (peripheral artery disease) I73.9
--- OUTSIDE RECORDS SUMMARY | 2024-11-12 14:41 | XMS_ITS | Encounter Summary ---
Author Organization [facility] Address [address] [place] [address] Phone Care Team Providers Care Pulmonary Function Technician Name Role Phone Koki Crowley MD Primary Care Provider [phone] Encounter Details Date Type Department Care Team (Late st Contact Info) Description 11/27/2023 Orders Only [facility] [address] [place] [place] [address] Phillip Saenz PA [address] [place] [address] Stage 3b chronic kidney disease (HCC); Stage 3a chronic kidney disease (HCC); Type 1 diabetes mellitus, not otherwise specified (HCC); Hyperuricemia; Hypertensive disorder; Atrial fibrillation, not otherwise specified (HCC); Bacteriuria Social History Tobacco Use Types Packs/Day Years Used Date Smoking Tobacco: Every Day Cigarettes Alcohol Use Standard Drinks/Week Comments No 0 (1 standard drink = 0.6 oz pure alcohol) Alcoholic Drinks/day: Occasional social drink Comments Unknown Sex and Gender Information Value Date Recorded Sex Assigned at Not on file Legal Sex Female 4:35 PM EST Gender Identity Not on file Sexual Orientation Not on file documented as of this encounter Plan of Treatment Upcoming Encounters Date Type Department Care Team (Late st Contact Info) Description 03/04/2025 2:30 PM EDT Office Visit [facility] [address] [place] [address] Rogelio Josue MD [address] [place] [address] documented as of this encounter Procedures Procedure Name Priority Date/Time Associated Diagnosis Comments RP10+2AC (HC) Routine 05/28/2024 11:14 AM EDT URINALYSIS, COMPLETE Routine 05/28/2024 11:14 AM EDT MICROSCOPIC EXAMINATION - DO NOT USE Routine 05/28/2024 11:14 AM EDT IRON PANEL (FE, TIBC, TSAT) Routine 05/28/2024 11:14 AM EDT VITAMIN D 25 HYDROXY Routine 05/28/2024 11:14 AM EDT CBC AND DIFFERENTIAL Routine 05/28/2024 11:14 AM EDT PTH, INTACT Routine 05/28/2024 11:14 AM EDT MAGNESIUM Routine 05/28/2024 11:14 AM EDT HEMOGLOBIN A1C Routine 05/28/2024 11:14 AM EDT documented in this encounter Results * (ABNORMAL) Microscopic Examination (05/28/2024 11:14 AM EDT) WBC, Urine 0-5 0 - 5 /hpf [facility] RBC, Urine >30(A) 0 - 2 /hpf [facility] Squamous Epithelial, Urine 0-10 0 - 10 /hpf [facility] Casts None seen None seen /lpf [facility] Bacteria, Urine None seen None seen/Few [facility] 05/28/2024 11:1 4 AM EDT 05/28/2024 [facility] MICROBIOLOGY - GENERAL OR DERABLES Final Result [facility] [address] [place] [address] * (ABNORMAL) PTH, Intact (05/28/2024 11:14 AM EDT) PTH 137(H) 15 - 65 pg/mL [facility] 05/28/2024 11:1 4 AM EDT 05/28/2024 Phillip [facility] BLOOD ORDERABLES Final Re sult Performing Organization Address City/[facility]/ZIP Co de Phone Number [facility] [address] [place] [address] * Magnesium (05/28/2024 11:14 AM EDT) Magnesium 2.1 1.6 - 2.3 mg/dL [facility] 05/28/2024 11:1 4 AM EDT 05/28/2024 Phillip [facility] BLOOD ORDERABLES Final Re sult Performing Organization Address City/[facility]/ZIP Co de Phone Number [facility] [address] [place] [address] * Vitamin D 25 Hydroxy (05/28/2024 11:14 AM EDT) Vitamin D, 25-OH, Total 38.5 30.0 - 100.0 ng/mL [facility] Comment: Vitamin D deficiency has been defined by the [place] Medicine and an Endocrine Society practice guideline as a level of serum 25-OH vitamin D less than 20 ng/mL (1,2). The Endocrine Society went on to further define vitamin D insufficiency as a level between 21 and 29 ng/mL (2). 1. IOM ([place] [employer]). 2010. Dietary reference ?? intakes for calcium and D. [place]: The ?? National Academies Press. 2. Mike MF, Yadira LARRY, Reva MCGHEE, et al. ?? Evaluation, treatment, and prevention of vitamin D ?? deficiency: an Endocrine Society clinical practice ?? guideline. JCEM. 2010; 96(7):1911-30. 05/28/2024 11:1 4 AM EDT 05/28/2024 Phillip [facility] BLOOD ORDERABLES Final Re sult Performing Organization Address [facility] Co de Phone Number [facility] [address] [place] [address] * (ABNORMAL) Hemoglobin A1c (05/28/2024 11:14 AM EDT) Hemoglobin A1C 8.2(H) 4.8 - 5.6 % [facility] Comment: ? Prediabetes: 5.7 - 6.4 ? Diabetes: >6.4 ? Glycemic control for adults with diabetes: <7.0 05/28/2024 11:1 4 AM EDT 05/28/2024 Phillip [facility] BLOOD ORDERABLES Final Re sult Performing Organization Address [facility] Co de Phone Number [facility] [address] [place] [address] * Iron Panel (Fe, TIBC, TSAT) (05/28/2024 11:14 AM EDT) TIBC 308 250 - 450 ug/dL [facility] UIBC 247 118 - 369 ug/dL [facility] Iron 61 27 - 139 ug/dL [facility] Iron Saturation (TSat) 20 15 - 55 % [facility] 05/28/2024 11:1 4 AM EDT 05/28/2024 us Phillip [facility] BLOOD ORDERABLES Final Re sult [facility] [address] [place] [address] * (ABNORMAL) Urinalysis, Complete w/reflex to Culture (05/28/2024 11:14 AM EDT) Specific Warren, Urine 1.021 1.005 - 1.030 [facility] pH Urine 5.5 5.0 - 7.5 [facility] Color, Urine Yellow Yellow [facility] [phone] Appearance Urine Cloudy(A) Clear [facility] [phone] WBC Esterase Urine Negative Negative [facility] Protein, Ur Trace Negative/Tra ce [facility] Glucose, Ur Negative Negative [facility] Ketones, Urine Negative Negative [facility] Blood Urine 2+(A) Negative [facility] Bilirubin Urine Negative Negative [facility] Urobilinogen Urine 0.2 0.2 - 1.0 mg/dL [facility] Nitrite, Urine Negative Negative [facility] Microscopic Examination See below: [facility] Comment:Microscopic was bertha cated and was performed. URINALYSIS REFLEX Comment [facility] [phone] Comment:This specimen will n ot reflex to a Urine Culture. 05/28/2024 11:1 4 AM EDT 05/28/2024 Phillip [facility] URINE ORDERABLES Final Re sult [facility] [address] [place] [address] * (ABNORMAL) CBC and Differential (05/28/2024 11:14 AM EDT) WBC 9.9 3.4 - 10.8 x10E3/uL [facility] RBC 4.35 3.77 - 5.28 x10E6/uL [facility] Hemoglobin 14.3 11.1 - 15.9 g/dL [facility] Hematocrit 45.3 34.0 - 46.6 % [facility] MCV 104(H) 79 - 97 fL [facility] MCH 32.9 26.6 - 33.0 pg [facility] MCHC 31.6 31.5 - 35.7 g/dL [facility] RDW 14.1 11.7 - 15.4 % [facility] Platelets 231 150 - 450 x10E3/uL [facility] Neutrophils Relative 73 Not Estab. % [facility] Lymphocytes Relative 15 Not Estab. % [facility] Monocytes 9 Not Estab. % [facility] Eosinophils Relative 2 Not Estab. % [facility] Basophils Relative 0 Not Estab. % [facility] Neutrophils Absolute 7.4(H) 1.4 - 7.0 x10E3/uL [facility] Lymphocytes Absolute 1.5 0.7 - 3.1 x10E3/uL [facility] Monocytes Absolute 0.8 0.1 - 0.9 x10E3/uL [facility] Eosinophils Absolute 0.2 0.0 - 0.4 x10E3/uL [facility] Basophils Absolute 0.0 0.0 - 0.2 x10E3/uL [facility] Immature Granulocytes 1 Not Estab. % [facility] Immature Grans (Absolute) 0.1 0.0 - 0.1 x10E3/uL [facility] 05/28/2024 11:1 4 AM EDT 05/28/2024 Phillip [facility] BLOOD ORDERABLES Final Re sult [facility] [address] [place] [address] * (ABNORMAL) RP10+2AC (05/28/2024 11:14 AM EDT) Glucose 283(H) 70 - 99 mg/dL [facility] Uric Acid 5.8 3.1 - 7.9 mg/dL [facility] Comment:Therapeutic target f or gout patients: <6.0 BUN 14 8 - 27 mg/dL [facility] Creatinine 1.16(H) 0.57 - 1.00 mg/dL [facility] eGFR CKD-EPI CR 2020 50(L) >59 mL/min/1.7 3 [facility] BUN/Creatinine Ratio 12 12 - 28 [facility] Sodium 140 134 - 144 mmol/L [facility] Potassium 3.9 3.5 - 5.2 mmol/L [facility] Chloride 96 96 - 106 mmol/L [facility] Bicarbonate (CO2) 30(H) 20 - 29 mmol/L [facility] Anion Gap 14.0 10.0 - 18.0 mmol/L [facility] Calcium 9.6 8.7 - 10.3 mg/dL [facility] Phosphorus 3.8 3.0 - 4.3 mg/dL [facility] Total Protein 5.7(L) 6.0 - 8.5 g/dL [facility] Albumin 3.9 3.8 - 4.8 g/dL [facility] Globulin 1.8 1.5 - 4.5 g/dL [facility] 05/28/2024 11:1 4 AM EDT 05/28/2024 Phillip [facility] [id number] SOLICITED RESULTS Final Result [facility] [address] [place] [address] documented in this encounter Visit Diagnoses Diagnosis Stage 3b chronic kidney disease (HCC) Stage 3a chronic kidney disease (HCC) Type 1 diabetes mellitus, not otherwise specified (HCC) Hyperuricemia Hypertensive disorder Atrial fibrillation, not otherwise specified (HCC) Bacteriuria documented in this encounter Care Teams Pulmonary Function Technician Relationship Specialty Start Date End Date Koki Crowley MD [address] [place], [place] PCP - General Internal Medicine 05/12/20 documented as of this encounter
--- OUTSIDE RECORDS SUMMARY | 2024-11-12 14:41 | XMS_ITS | Encounter Summary ---
Author Organization [facility] [place], Address [address] [place] [address] Phone Care Team Providers Care Banking Paralegal Name Role Phone Koki Crowley MD Primary Care Provider [phone] Encounter Details Date Type Department Care Team (Late Contact Info) Description 10/20/2021 Documentation Only [facility] [address] [place] [address] Rogelio Josue MD [address] [place] [address] [place] [address] Social History Tobacco Use Types Packs/Day Years [...] Visit [facility] [address] [place] [address] Rogelio Josue MD [address] [place] [address] [place] [address] documented as of this encounter Visit Diagnoses Not on filedocumented in this encounter Care Teams Banking Paralegal Relationship Specialty Start Date End Date Koki Crowley MD [address] [place], [place] PCP - General Internal Medicine 05/12/20 documented as of this encounter
--- OUTSIDE RECORDS SUMMARY | 2024-11-12 14:41 | XMS_ITS | Encounter Summary ---
Author Organization [facility] [place], Address [address] [place] [address] Phone Care Team Providers Care Supervisor Edging Name Role Phone Koki Crowley MD Primary Care Provider [phone] Encounter Details Date Type Department Care Team (Late Contact Info) Description 09/30/2021 Documentation Only [facility] [address] [place] [address] Rogelio Josue MD [address] [place] [address] [place] [address] Social History Tobacco Use Types [...] Visit [facility] [address] [place] [address] Rogelio Josue MD [address] [place] [address] [place] [address] documented as of this encounter Visit Diagnoses Not on filedocumented in this encounter Care Teams Supervisor Edging Relationship Specialty Start Date End Date Koki Crowley MD [address] [place], [place] PCP - General Internal Medicine 05/12/20 documented as of this encounter
--- OUTSIDE RECORDS SUMMARY | 2024-11-12 14:41 | XMS_ITS | Encounter Summary ---
Author Organization [facility] [place], Address [address] [place] [address] Phone Care Team Providers Care Interactive Project Manager Name Role Phone Koki Crowley MD Primary Care Provider [phone] Encounter Details Date Type Department Care Team (Late Contact Info) Description 11/12/2021 Documentation Only [facility] [address] [place] [address] Rogelio Josue MD [address] [place] [address] [place] [address] Social History Tobacco Use Types [...] Visit [facility] [address] [place] [address] Rogelio Josue MD [address] [place] [address] [place] [address] documented as of this encounter Visit Diagnoses Not on filedocumented in this encounter Care Teams Interactive Project Manager Relationship Specialty Start Date End Date Koki Crowley MD [address] [place], [place] PCP - General Internal Medicine 05/12/20 documented as of this encounter
--- OUTSIDE RECORDS SUMMARY | 2024-11-12 14:41 | XMS_ITS | Encounter Summary ---
Author Organization [facility] [place], Address [address] [place] [address] Phone Care Team Providers Care Materials Assistant Name Role Phone Koki Crowley MD Primary Care Provider [phone] Reason for Visit * Reason Comments Med Refill Encounter Details Date Type Department Care Team ([facility] Contact Info) Description 06/03/2021 Refill [facility] [address] [place] [address] Rogelio Josue MD [address] [place] [address] [place] [address] Social History Tobacco Use Types [...] Encounters Date Type Department Care Team (Late Contact Info) Description 03/04/2025 2:30 PM EDT Office Visit [facility] [place], [address] [place] [address] Rogelio Josue MD [address] [place] [address] documented as of this encounter Visit Diagnoses Not on filedocumented in this encounter Care Teams Materials Assistant Relationship Specialty Start Date End Date Koki Crowley MD [address] [place], [place] PCP - General Internal Medicine 05/12/20 documented as of this encounter
--- OUTSIDE RECORDS SUMMARY | 2024-11-12 14:41 | XMS_ITS | Clinical Summary ---
Author Organization [facility], Address [address] [place] [address] [place] [address] Phone Care Team Providers Care Generation Engineering Technologist Name Role Phone Koki Crowley MD Primary Care Provider Allergies Active Allergy Reactions Criticality Noted Date Comments Adhesive Tape 07/10/2023 Other reaction(s): removes top layer of skin Medications azaTHIOprine (IMURAN) 100 MG tablet Take 1 tablet by mouth 1 (one) time each day Active dronedarone (MULTAQ) 400 MG tablet Take 1 tablet by mouth 2 (two) times a day Active insulin aspart (NOVOLOG) 100 UNIT/ML injection Inject 15 Units under the skin 3 (three) times a day before meals Active insulin glargine (LANTUS) 100 UNIT/ML injection Active rivaroxaban (Xarelto) 15 MG tablet Take 1 tablet by mouth 1 (one) time each day Active predniSONE 5 MG tablet Take 5 mg by mouth 1 (one) time each day Active tiZANidine (ZANAFLEX) 4 MG tablet Take 4 mg by mouth every 8 (eight) hours Active torsemide (Demadex) 20 MG tablet Take 2 tablets (40 mg total) by mouth 2 (two) times a day 120 tablet 3 Active metoprolol succinate XL (TOPROL XL) 25 MG 24 hr tablet Take 25 mg by mouth 1 (one) time each day Do not crush or chew. Active dilTIAZem (TIAZAC) 180 MG 24 hr capsule Take 180 mg by mouth 1 (one) time each day Active DULoxetine HCl 40 MG capsule delayed-release particles Take by mouth Active Naloxone HCl 4 MG/0.1ML liquid Administer into affected nostril(s) Active midodrine (PROAMATINE) 5 MG tablet PLEASE SEE ATTACHED FOR DETAILED DIRECTIONS 2 Active HYDROmorphone (DILAUDID) 2 MG tablet TAKE 2 TABLETS BY MOUTH EVERY 8 HOURS NEEDED FOR PAIN 2 Active gabapentin (NEURONTIN) 100 MG capsule Take 1 capsule (100 mg total) by mouth at bed time 90 capsule 3 4 02/07/20 25 Active allopurinol (ZYLOPRIM) 100 MG tablet TAKE 1 TABLET(100 MG) BY MOUTH EVERY NIGHT 30 tablet 11 4 Active alendronate (FOSAMAX) 70 MG tablet Take 70 mg by mouth 4 Active dilTIAZem CD (CARDIZEM CD) 180 MG 24 hr capsule Take 180 mg by mouth in the morning and 180 mg in the evening. 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 <Initial> 12/28/2021 Stage 3b chronic kidney disease 08/17/2021 Hypertensive disorder 12/03/2019 Type 1 diabetes mellitus 12/03/2019 Nephrolithiasis Osteoarthritis Hyperuricemia Atrial fibrillation Resolved Problems Problem Noted Date Diagnosed Date Resolved Date Acute kidney failure 08/17/2021 022 Edema 06/07/2021 08/16/2021 Sleep apnea 06/07/2021 08/16/2021 Cigarette smoker 11/23/2020 06/03/2021 Personal history of urinary calculi 05/14/2020 06/03/2021 Multiple renal cysts 05/14/2020 022 Cigarette smoker 05/14/2020 11/20/2020 Chronic kidney disease stage 2 12/03/2019 12/28/2021 Hematuria syndrome 12/03/2019 Lumbar radiculopathy 12/03/2019 021 Microalbuminuria 12/03/2019 06/03/2021 Nephrocalcinosis 12/03/2019 06/03/2021 Osteoporosis 12/03/2019 11/20/2020 Renal disorder due to type 2 diabetes mellitus 12/03/2019 08/16/2021 Encounters Date Type Department Care Team Description 09/03/2024 2:45 PM EST Office [facility] [address] [place] [address] Rogelio Josue MD Stage 3a chronic kidney disease (HCC) (Primary Dx); Hypertensive disorder; Multiple renal cysts 09/03/2024 Documentation Only [facility] [address] [place] [address] Dejah Conner from Last 3 Months Immunizations Name Administration Dates Next Due Influenza Split High Dose Preservative Free IM 0 10/27/2016 Influenza Vaccine, Quadrivalent, Adjuvanted 08/17 Influenza Whole 07/24/2008,08/17/2007 Influenza, Trivalent, Adjuvanted 08/21/2019 Moderna SARS-COV-2 03/08/2021,02/08/2021 Family History Medical History Relation Comments Heart disease Father Hypertension Mother Relation Status Comments Father Alive Mother Alive Social History Tobacco Use Types Packs/Day Years Used Date Smoking Tobacco: Every Day Cigarettes Tobacco Cessation:Ready to Q uit: Not Asked; Counseling Given: Not Answered Alcohol Use Standard Drinks/Week Comments No 0 (1 standard drink = 0.6 oz pure alcohol) Alcoholic Drinks/day: Occasional social drink Comments Unknown Sex and Gender Information Value Date Recorded Sex Assigned at Not on file Legal Sex Female 4:35 PM EST Gender Identity Not on file Sexual Orientation Not on file Last Filed Vital Signs Vital Sign Reading Time Taken Comments Blood Pressure 104/62 07/11/2023 1:39 PM EDT Pulse 78 10/19/2018 12:00 PM EST Temperature - - Respiratory Rate 16 10/19/2018 12:00 PM EST Oxygen Saturation - - Inhaled Oxygen Concentration - - Weight 61.9 kg (136 lb 6.4 oz) 07/11/2023 1:39 P M EDT Height 172.7 cm (5' 8 ) 07/11/2023 1:39 PM EDT Body Mass Index 20.74 07/11/2023 1:39 PM EDT Plan of Treatment Upcoming Encounters Date Type Department Care Team (Late st Contact Info) Description 03/04/2025 2:30 PM EDT Office Visit [facility] [address] [place] [address] Rogelio Josue MD [address] [facility] [place] [address] Health Maintenance Due Date Last Done Comments Breast Cancer Screening 1950 Pneumococcal Vaccine: 65+ Years (1 of 2 - PCV) 1957 Colorectal Cancer Screening: Annual FOBT 01/14/2000 Colorectal Cancer Screening: Colonoscopy 01/14/2000 Colorectal Cancer Screening: Sigmoidoscopy 01/14/2000 Diabetes: Ophthalmology Exam 12/03/2019 Diabetes: Pedal Pulse Checked 12/03/2019 Diabetes: Sensory Foot Exam 12/03/2019 Diabetes: Visual Foot Exam 12/03/2019 Influenza Vaccine (#1) 2024 0, 08/21/2019, 10/27/2016, Additional history exists Diabetes: Hemoglobin A1C 08/28/2024 024, 06/22/2023, 01/05/2023, Additional history exists Hepatitis B Vaccine Aged Out No longe r eligible based on patient's age to complete this topic Procedures Procedure Name Priority Date/Time Associated Diagnosis Comments HEMOGLOBIN A1C Routine 05/28/2024 11:14 AM EDT from Last 3 Months or Most Recently Relevant to Health Maintenance Results * (ABNORMAL) Hemoglobin A1c (05/28/2024 11:14 AM EDT) Hemoglobin A1C 8.2(H) 4.8 - 5.6 % [facility] Erica Comment: ? Prediabetes: 5.7 - 6.4 ? Diabetes: >6.4 ? Glycemic control for adults with diabetes: <7.0 05/28/2024 11:1 4 AM EDT 05/28/2024 Phillip [facility] BLOOD ORDERABLES Final Re sult [facility] [place] [address] from Last 3 Months or Most Recently Relevant to Health Maintenance Insurance [place]ICAID [place] MEDICARE Care Teams Generation Engineering Technologist Relationship Specialty Start Date End Date Koki Crowley MD [address] [place], [place] PCP - General Internal Medicine 05/12/20
--- OUTSIDE RECORDS SUMMARY | 2024-11-12 14:41 | XMS_ITS | Encounter Summary ---
Author Organization [facility] [place], Address [address] [place] [address] Phone Care Team Providers Care Director Of Collections Name Role Phone Koki Crowley MD Primary Care Provider [phone] Encounter Details Date Type Department Care Team (Late Contact Info) Description 11/11/2021 Documentation Only [facility] [address] [place] [address] Rogelio Josue MD [address] [place] [address] [place] [address] Social History Tobacco Use Types [...] Visit [facility] [address] [facility] [address] Rogelio Josue MD [address] [place] [address] [place] [address] documented as of this encounter Visit Diagnoses Not on filedocumented in this encounter Care Teams Director Of Collections Relationship Specialty Start Date End Date Koki Crowley MD [address] [place], [place] PCP - General Internal Medicine 05/12/20 documented as of this encounter
--- OUTSIDE RECORDS SUMMARY | 2024-11-12 14:41 | XMS_ITS | Encounter Summary ---
Author Organization [facility] [place], Address [address] [place] [address] Phone Care Team Providers Care Field Artillery Cannoneer Name Role Phone Koki Crowley MD Primary Care Provider [phone] Encounter Details Date Type Department Care Team (Late Contact Info) Description 09/03/2024 Documentation Only [facility] [address] [place] [place] [address] [place] [address] Dejah Conner [address] [place] [address] Social History Tobacco Use Types Packs/Day Years [...] Visit [facility] [address] [place] [address] Rogelio Josue MD [address] [facility] [place] [address] documented as of this encounter Visit Diagnoses Not on filedocumented in this encounter Care Teams Field Artillery Cannoneer Relationship Specialty Start Date End Date Koki Crowley MD [address] [place], [place] PCP - General Internal Medicine 05/12/20 documented as of this encounter
--- OUTSIDE RECORDS SUMMARY | 2024-11-12 14:41 | XMS_ITS | Encounter Summary ---
Author Organization [facility] Address [address] [place] [address] Phone Care Team Providers Care Parimutuel Clerk Name Role Phone Koki Crowley MD Primary Care Provider [phone] Encounter Details Date Type Department Care Team (Late st Contact Info) Description 06/28/2022 Documentation Only [facility] [address] [address] Phillip Saenz PA [address] [place] [address] Social History Tobacco Use Types Packs/Day Years [...] Visit [facility] [address] [address] Rogelio Jouse MD [address] [facility] [place] [address] documented as of this encounter Visit Diagnoses Not on filedocumented in this encounter Care Teams Parimutuel Clerk Relationship Specialty Start Date End Date Koki Crowley MD [address] [place], [place] PCP - General Internal Medicine 05/12/20 documented as of this encounter
--- OUTSIDE RECORDS SUMMARY | 2024-11-12 14:41 | XMS_ITS | Clinical Summary ---
Author Organization [facility] Address [id number] [place] [address] Care Team Providers Care Railroader Name Role Phone Koki Crane MD Primary Care Provider [phone] Surgical History Surgery Date Site/Laterality Comments OTHER SURGICAL HISTORY PROCEDURE: HISTORICAL SUBTOTAL THYROIDECTOMY; COMMENT: OTHER SURGICAL HISTORY 1990 PROCEDURE: ---- OTHER ----; COMMENT: colon resection crohns Medical History Medical History Date Comments Weight loss DX:Weight loss IBD (inflammatory bowel disease) 07/08/2009 DX:IBD (inflammatory bowel disease) Unspecified essential hypertension DX:Unspecified essential hypertension Graves disease 07/08/2009 DX:Graves diseas e Graves disease 07/08/2009 DX:Graves diseas e Glaucoma 02/28/2012 DX:Glaucoma Family History Medical History Relation Name Comments Other cancer Father skin cancer Other: pacemaker Father Cataracts Mother arthritis, dive rticulitis, bladder canced Blindness Neg Hx Glaucoma Neg Hx Macular degeneration Neg Hx Strabismus Neg Hx Relation Name Status Comments Father Mother Social History Tobacco Use Types Packs/Day Years Used Date Smoking Tobacco: Every Day Cigarettes Smokeless Tobacco: Never Alcohol Use Standard Drinks/Week Comments Not Asked 0 (1 standard drink = 0.6 oz pur e alcohol) Sex and Gender Information Value Date Recorded Sex Assigned at Not on file Gender Identity Not on file Sexual Orientation Not on file Obstetrics History Plan of Treatment Health Maintenance Due Date Last Done Comments Breast Cancer Screening 1950 Diabetes: Annual GFR (Glomerular Filtration Rate) 1950 COVID-19 Vaccine (#1) 01/14/1956 Diabetes: Annual Foot Exam 1961 Diabetes: Annual Retina Eye Exam 1961 DTaP,Tdap,and Td Vaccines (1 - Tdap) 1970 Zoster Vaccines (1 of 2) 1970 Pneumococcal Vaccine: 65+ Years (2 of 2 - PCV) 10/16/1998 10/16/1997 RSV Immunization Patients 60+ Years Old (1 - Risk 60-74 years 1-dose series) 2011 Cholesterol Screening (Lipid Panel) 09/17/2022 Colorectal Cancer Screening: Colonoscopy 09/17/2022 Depression Screening 09/17/2022 Falls Risk Assessment 09/17/2022 Hepatitis C Screening 09/17/2022 Osteoporosis Screening (Bone Density Screening) 09/17/2022 Social Influencers of Health Screening 09/17/2022 Diabetes: Annual Urine Albumin-Creatinine Ratio (uACR) 09/30/2022 Diabetes: Blood Sugar Control Test (HGBA1C) 09/30/2022 Influenza Vaccine (#1) 2024 5, 07/26/2013, 07/25/2012, Additional history exists HIB Vaccines Aged Out No longer eligi ble based on patient's age to complete this topic HPV Vaccines Aged Out No longer eligi ble based on patient's age to complete this topic Hepatitis A Vaccines Aged Out No long er eligible based on patient's age to complete this topic Hepatitis B Vaccines Aged Out No long er eligible based on patient's age to complete this topic IPV Vaccines Aged Out No longer eligi ble based on patient's age to complete this topic MMR Vaccines Aged Out No longer eligi ble based on patient's age to complete this topic Meningococcal ACWY Vaccine Aged Out N o longer eligible based on patient's age to complete this topic RSV Immunization Patients Under 20 months Aged Out No longer eligible based on patient's age to complete this topic Varicella Vaccines Aged Out No longer eligible based on patient's age to complete this topic Care Teams Railroader Relationship Specialty Start Date End Date Koki Crane MD [address] [place] [address] , [address] [facility] D/B/A: [facility] APRIL [place] PCP - General Internal Medicine 10/23/15
== END 2024-11-12 14:13 | disposition home or self-care (01) ==
PROVIDERS: PCP Internal Medicine; Visit Provider Surgery Vascular Surgery
DX: I73.9 Peripheral vascular disease, unspecified (principal)
CPT/HCPCS: 99214; G2211

== ENCOUNTER → 2024-11-12 13:45 | Outpatient (BNVA) | payer MEDICARE, MEDICAID, SELFPAY | PROVIDERS: PCP Internal Medicine; Visit Provider Surgery Vascular Surgery | DX: I73.9 Peripheral vascular disease, unspecified (principal) | CPT/HCPCS: 99212 ==

== ENCOUNTER 2025-02-25 15:33 | Outpatient (AMB) | payer MEDICARE, MEDICAID, SELFPAY ==
--- NOTE | 2025-02-25 15:37 | A.OFFPC_ITS ---
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: No Accompanied by: Self / Same As Patient Allergies adhesive Allergy (Verified 02/25/25 15:59) peels 1st layer of skin Medication List - Last Reconciled 02/25/25 by Koki Crane MD acetaminophen ER 1,300 mg (2 x 650 mg) PO Q12H PRN 90 days alendronate 70 mg PO QWEEK 90 days allopurinol 100 mg PO DAILY atorvastatin 40 mg PO BEDTIME 90 days blood sugar diagnostic (Blood Glucose Test strips) Use 1 test strip four times a day blood sugar diagnostic (Accu-Chek Deepa Plus test strips) test 6x daily Type 1; diltiazem HCl CD 60 mg PO TID flash glucose sensor (FreeStyle Tico 3 Sensor kit) As directed folic acid 1 mg PO DAILY gabapentin 300 mg PO TID hydromorphone 2 mg PO Q6H PRN 30 days insulin aspart U-100 (Novolog FlexPen U-100 Insulin aspart) 15 units (0.15 mL) subcut .four times a day PRN 90 days insulin glargine (Lantus Solostar U-100 Insulin) 18 units subcut QAM insulin lispro (Humalog KwikPen (U-100) Insulin) 15 units (0.15 mL) subcut .every 6 hours 30 days latanoprost 0.005% 1 drp ophthalmic (eye) BEDTIME metoprolol succinate ER 50 mg PO DAILY mirtazapine 7.5 mg PO BEDTIME naloxone 4 mg/actuation (Narcan) 4 mg intranasal Q2M PRN pen needle, diabetic Use 1 needle four times a day rivaroxaban (Xarelto) 15 mg PO DAILY 90 days Tobacco use date assessed: 02/25/25 Fall risk assessment: 1 Fall in past year Last assessed Fall Risk: 02/25/25 Dental Screening Dental Screen Date: 02/25/25 Did you have a dental visit in the last 12 months?: No Did you have a dental problem in the last 6 months where you did not have access to dental care?: No Was dental information given to patient?: Patient has dentist HPI HPI Comments History of Present Illness Details The patient is a 75-year-old female presenting with notable challenges in managing her diabetes mellitus, particularly with significant hyperglycemic episodes. Recently, blood glucose levels have been recorded as high as 500 mg/dL. Treatment is currently adjusted with an increase in Lantus insulin doses, alongside challenges stemming from a missed endocrinology appointment due to recent rehabilitative care post-chemotherapy port placement for lung cancer management. Fluid buildup at the port site requires consistent draining thrice weekly, as intermittent care during rehab led to excess accumulation. Past medical history includes Crohn's Disease managed with hydromorphone, atrial fibrillation with Xarelto therapy, as well as osteoporosis and hyperparathyroidism. The patient is navigating her care around limited transport options. A1c of 8.2% in December. Recently diagnosed with lung cancer and has a drainage that was placed over 3 weeks ago and is managed 3 times a week by visiting nurses. Draining well with no infection. [facility] Medical History (Updated 02/25/25 @ 19:35 by Koki Crane MD) Fracture of sacrum Fracture of second lumbar vertebra Afib Arterial insufficiency of lower extremity Chronic kidney disease, stage III (moderate) Pure hypercholesterolemia Abdominal discomfort Shortness of breath Right lumbar radiculopathy Abnormal CBC measurement Crohn's disease History of Graves' disease Vitamin D deficiency Opiate dependence Bullous pemphigoid Type 1 diabetes mellitus with unspecified complications Essential hypertension Paroxysmal atrial flutter Paroxysmal atrial fibrillation Diabetes mellitus type 1 Surgical History History of bowel resection History of thyroid nodule Family History Father CVD (cardiovascular disease) Pacemaker Mother Constipation Sister Thyroid disease Social History Household Members: None Household Members Other:: Single lives jyoti Housing: House Alcohol intake: former Patient Tobacco Use Status: Current someday Tobacco user Tobacco use type: Cigarette Cigarette Packs Per Day: 0.5 e-Cigarette/Vaping Use: Currently Using Second Hand Smoke Exposure: No service: No Current occupational status: disabled Current occupation: On disability since 2001 -nerve damage in foot Cognitive needs: Yes Hearing needs: No Vision needs: Yes Questionnaire PHQ-9 Over the last 2 weeks, how often have you been bothered by any of the following problems? 1. Little interest or pleasure in doing things: not at all 2. Feeling down, depressed, or hopeless: nearly every day 3. Trouble falling or staying asleep, or sleeping too much: not at all 4. Feeling tired or having little energy: nearly every day 5. Poor appetite or overeating: nearly every day 6. Feeling bad about yourself - or that you are a failure or have let yourself or your family down: not at all 7. Trouble concentrating on things, such as reading the newspaper or watching television: nearly every day 8. Moving or speaking so slowly that other people could have noticed. Or the opposite - being so fidgety or restless that you have been moving around a lot more than usual: not at all 9. Thoughts that you would be better off or of hurting yourself in some way: not at all Total score: 12 Depression Screening Interpretation: Positive Depression Screening Follow-up: Existing condition and Follow-up Visit Requested Depression Screening Done: Yes 97006 - PHQ-9 Billing: Yes Source: Developed by Drs. Kieran Summers, Jillian Abrams, Gregg Paris and colleagues, with an educational edmond from [employer]. Thrive Questionnaire Date Thrive assessed: 02/25/25 I am a: Patient What is your living situation today?: I have a steady place to live Within the past 12 months, did the food you bought not last and you didn't have the money to get more?: I choose not to answer this question Within the past 12 months, did you worry whether your food would run out before you got money to buy more?: Never true Do you have trouble paying for medicines?: No Do you have trouble getting transportation to medical appointments?: Yes Do you have trouble paying your heating and electricity bill?: No Do you have trouble taking care of your child, family member or friend?: Yes Do you have trouble with day-to-day activities such as bathing, preparing meals, shopping, managing finances, etc.?: Yes Are you currently unemployed and looking for a job?: I choose not to answer this question Are you interested in more education?: No Please select the resources that you would like help with: None Currently or been in a relationship where the following occur: I choose not to answer THRIVE Score: 1 AUDIT C Alcohol Use Questionnaire (AUDIT-C) 1. How often do you have a drink containing alcohol?: Monthly or less 2. How many drinks containing alcohol do you have on a typical day when you are drinking?: 1 or 2 3. How often do you have six or more drinks on one occasion?: Never Total Score: 1 HIWOT-7 AMB Questionnaire HIWOT-7 Date HIWOT - 7 assessed: 02/25/25 Feeling nervous, anxious, or on edge: 1 = Several days Not being able to stop or control worryin = Several days Worrying too much about different things: 2 = More than half the days Trouble relaxin = Not at all Being so restless that it is hard to sit still: 0 = Not at all Becoming easily annoyed or irritable: 0 = Not at all Feeling afraid as if something awful might happen: 0 = Not at all Total HIWOT-7 score (0-4 normal; 5-9 mild; 10-14 moderate; 15-21 severe): 4 Source: Developed by Drs. Kieran Summers, Jillian Abrams, Gregg Paris and colleagues, with an educational edmond from [employer]. Review of Systems Const All systems reviewed & are unremarkable except as noted in HPI and below Card Denies chest pain at rest, Denies chest pain with activity, Denies edema, Denies irregular heart rhythm, Denies claudication, Denies dyspnea, Denies dyspnea on exertion, Denies orthopnea, Denies paroxysmal nocturnal dyspnea and Denies slow heart rate Resp Denies cough, Denies dyspnea and Denies dyspnea on exertion GI Denies abdominal pain, Denies change in bowel habits, Denies excessive flatus, Denies nausea and Denies vomiting Neuro Denies behavioral changes and Denies lack of coordination Psych Denies behavioral changes Physical exam (Primary Care) Vital Signs: Last Vital Signs BP 110/72 02/25/25 15:38 BMI result Body Mass Index 19.0 BMI Assessment/Plan discussion: Low BMI Low, Plan discussed: lifestyle, increase calorie intake and dietary Tobacco/Smoking Status: Tobacco use Status Tobacco use date assessed 02/25/25 02/25/25 15:57 Patient Tobacco Use Status Current someday Tobacco 02/25/25 15:57 Tobacco use type Cigarette 02/25/25 15:57 e-Cigarette/Vaping Use Currently Using 02/25/25 15:57 PHQ-9: PHQ-9 Score PHQ-9: Total score 12 02/25/25 16:03 Depression Screening Interpretation: Positive Depression Screening Follow-up: Existing condition and Follow-up Visit Requested Thrive Assessment: Date of Thrive Assessment Date Thrive assessed 02/25/25 02/25/25 15:57 Currently or been in a relationship where the following occur: I choose not to answer Const Limitations: ambulation with walker HENMT Head: Yes normal to inspection, Yes normocephalic and Yes atraumatic Ears: external ears normal Eyes General: appearance normal, both eyes and all related structures Eyelids: Yes eyelids normal Conjunctivae: conjunctivae normal Neck Neck: Yes normal visual inspection and Yes supple Resp Effort & Inspection: normal respiratory effort Auscultation: clear to auscultation bilaterally Cardio Jugular venous distension: no JVD Rate: regular rate Rhythm: regular rhythm Heart sounds: S1 normal heart sound present and S2 normal heart sound present GI Inspection: Yes normal to inspection Palpation (GI): Soft to palpation and nontender Auscultation: normal bowel sounds Skin General skin exam: no rashes or lesions noted Neuro General: no focal motor deficits Extrem General: Yes full ROM Psych Appearance: grossly normal Coding Level of Care Code Est Pt Level 4 (29926) Complex EM visit Add On G2211 Diagnoses Persistent atrial fibrillation I48.19 Age related osteoporosis M81.0 Hyperlipidemia LDL goal <70 E78.5 Crohn's disease without complication, unspecified gastrointestinal tract location K50.90 Gastrointestinal tract location: unspecified location Digestive disease complication type: without complication Type 1 diabetes mellitus with unspecified complications E10.8 Lung cancer C34.90 Additional Codes PHQ-9 - 67913 - PHQ-9 Billing: Yes ([id number]) Time Spent (min) 22 Assessment & Plan Assessment & Plan (1) Persistent atrial fibrillation: Code(s): I48.19 - Other persistent atrial fibrillation Category: Medical (2) Age related osteoporosis: Code(s): M81.0 - Age-related osteoporosis without current pathological fracture Category: Medical (3) Hyperlipidemia LDL goal <70: Code(s): E78.5 - Hyperlipidemia, unspecified Category: Medical (4) Crohn's disease: Code(s): K50.90 - Crohn's disease, unspecified, without complications Category: Medical Qualifiers: Gastrointestinal tract location: unspecified location Digestive disease complication type: without complication Qualified Code(s): K50.90 - Crohn's disease, unspecified, without complications (5) Type 1 diabetes mellitus with unspecified complications: Code(s): E10.8 - Type 1 diabetes mellitus with unspecified complications Category: Medical (6) Lung cancer: Code(s): C34.90 - Malignant neoplasm of unspecified part of unspecified bronchus or lung Category: Medical Plan I recommend adjusting the Lantus dose to 22 units, with further increases as necessary to manage the patient's hyperglycemia. The patient is advised to confirm follow-up appointments with both an supervisor coil springs and an oncologist to refine diabetes control and prepare for chemotherapy, respectively. Monitoring and management of fluid accumulation via regular drainage at the chemotherapy port site are underscored. The patient's other chronic conditions, such as Crohn's Disease managed by hydromorphone, and atrial fibrillation treated with Xarelto, require consistent maintenance. Addressing missed medical appointments is a priority, navigating around transport constraints. Tobacco cessation is to be continued with an emphasis on minimizing vaping use. Coordination with the pharmacy to ensure medication management and an updated blood work profile will allow comprehensive follow-up care. Patient was informed and verbally consented to the use of an ambient scribe for clinic note documentation during this visit. During our discussion, we explored the management of the patient's elevated bloo d glucose levels and the implications of adjusting insulin doses. I emphasized the significance of reconnecting with the supervisor coil springs to enhance diabetes control and advice regarding the patient?s impending chemotherapy for lung cancer. We reviewed potential follow-up care and the necessity of managing the fluid drainage at the port site with a consistent schedule to prevent complications. I reiterated the importance of resuming oncology and endocrinology consultations, and we planned to incorporate transportation considerations into booking future medical visits. Discussion also included m edication adherence, pharmacy coordination, and relevant blood work to anticipate at upcoming medical reviews. The patient acknowledged the plan and expressed an understanding of the necessity of consent in her treatment pathway. Medications: New metoprolol tartrate 37.5 mg PO BID 180 tabs 1RF 90 days diltiazem HCl 60 mg PO TID 90 tabs 2RF 30 days gabapentin 300 mg PO TID 90 caps 3RF 30 days mirtazapine 7.5 mg PO BEDTIME 90 tabs 0RF 90 days Changed From insulin glargine (Lantus Solostar U-100 Insulin) 25 units (0.25 mL) subcut QAM 90 days 22.5 mL 3RF E10.9 - Type 1 diabetes mellitus without complications To insulin glargine (Lantus Solostar U-100 Insulin) 18 units subcut QAM E10.9 - Type 1 diabetes mellitus without complications Patient Instructions: - Monitor blood sugar levels closely. - Adjust insulin dosage as discussed. - Follow up with supervisor coil springs and oncologist. - Coordinate visits considering available transportation. - Avoid smoking and vaping to improve health. - Continue medication management with a pharmacy. - Monitor fluid drainage at the port for any signs of complication. - Call if experiencing any health changes or concerns.
[2025-02-25 15:38] VITALS: BP 110/72; BMI 19.0
--- OUTSIDE RECORDS SUMMARY | 2025-02-25 16:21 | XMS_ITS | Encounter Summary ---
Author Organization [facility] Address [address] [place] [address] Phone Care Team Providers Care Ornament Setter Name Role Phone Koki Crowley MD Primary Care Provider [phone] Encounter Details Date Type Department Care Team (Late st Contact Info) Description 11/27/2023 Orders Only [facility] [address] [place] [address] Phillip Saenz PA Stage 3b chronic kidney disease (HCC); Stage [...] Visit [facility] [address] [place] [address] Rogelio Josue MD [address] [place] [address] [place] [address] documented as of this encounter Procedures Procedure [...] Urine 0-5 0 - 5 /hpf [facility] RBC, Urine >30(A) 0 - 2 /hpf [facility] Squamous Epithelial, Urine 0-10 0 - 10 /hpf [facility] Casts None seen None seen /lpf [facility] Bacteria, Urine None seen None seen/Few [facility] 05/28/2024 11:1 4 AM EDT 05/28/2024 us [facility] MICROBIOLOGY - GENERAL OR DERABLES Final Result [facility] [address] [place] [address] * (ABNORMAL) PTH, Intact (05/28/2024 11:14 AM EDT) PTH 137(H) 15 - 65 pg/[facility] 05/28/2024 11:1 4 AM EDT 05/28/2024 Phillip [facility] BLOOD ORDERABLES Final Re sult [facility] [address] [place] [address] * Magnesium (05/28/2024 11:14 AM EDT) Magnesium 2.1 1.6 - 2.3 mg/dL [facility] 05/28/2024 11:1 4 AM EDT 05/28/2024 Phillip [facility] BLOOD ORDERABLES Final Re sult Performing Organization Address City/[facility]/ZIP Co de Phone Number [facility] [address] [place] [address] * Vitamin D 25 Hydroxy (05/28/2024 11:14 AM EDT) Vitamin D, 25-OH, Total 38.5 30.0 - 100.0 ng/mL [facility] Comment: Vitamin D deficiency has been defined by the [place] of Medicine and an Endocrine Society practice guideline as a level of serum 25-OH vitamin D less than 20 ng/mL (1,2). The Endocrine Society went on to further define vitamin D insufficiency as a level between 21 and 29 ng/mL (2). 1. IOM ([place] of Medicine). 2010. Dietary reference ?? intakes for calcium and D. [place]: The ?? National [employer]. 2. Mike MF, Yadira NC, Reva MCGHEE, et al. ?? Evaluation, treatment, and prevention of vitamin D ?? deficiency: an Endocrine Society clinical practice ?? guideline. JCEM. 2011 Apr; 96(7):1911-30. 05/28/2024 11:1 4 AM EDT 05/28/2024 Phillip [facility] BLOOD ORDERABLES Final Re sult Performing Organization Address [facility] Co de Phone Number [facility] [address] [place] [address] * (ABNORMAL) Hemoglobin A1c (05/28/2024 11:14 AM EDT) Hemoglobin A1C 8.2(H) 4.8 - 5.6 % [facility] Comment: ? Prediabetes: 5.7 - 6.4 ? Diabetes: >6.4 ? Glycemic control for adults with diabetes: <7.0 05/28/2024 11:1 4 AM EDT 05/28/2024 Phillip [facility] BLOOD ORDERABLES Final Re sult Performing Organization Address City/[facility] Co de Phone Number [facility] [address] [place] [address] * Iron Panel (Fe, TIBC, TSAT) (05/28/2024 11:14 AM EDT) TIBC 308 250 - 450 ug/dL [facility] UIBC 247 118 - 369 ug/dL [facility] Iron 61 27 - 139 ug/dL [facility] Iron Saturation (TSat) 20 15 - 55 % [facility] 05/28/2024 11:1 4 AM EDT 05/28/2024 Phillip [facility] BLOOD ORDERABLES Final Re sult [facility] [address] [place] [address] * (ABNORMAL) Urinalysis, Complete w/reflex to Culture (05/28/2024 11:14 AM EDT) Specific [place], Urine 1.021 1.005 - 1.030 [facility] [phone] pH Urine 5.5 5.0 - 7.5 [facility] Color, Urine Yellow Yellow [facility] Appearance Urine Cloudy(A) Clear [facility] [phone] WBC Esterase Urine Negative Negative [facility] [phone] Protein, Ur Trace Negative/Tra ce [facility] Glucose, Ur Negative Negative [facility] [phone] Ketones, Urine Negative Negative [facility] Blood Urine 2+(A) Negative [facility] Bilirubin Urine Negative Negative [facility] Urobilinogen Urine 0.2 0.2 - 1.0 mg/dL [facility] Nitrite, Urine Negative Negative [facility] Microscopic Examination See below: [facility] [phone] Comment:Microscopic was bertha cated and was performed. URINALYSIS REFLEX Comment [facility] Comment:This specimen will n ot reflex to a Urine Culture. 05/28/2024 11:1 4 AM EDT 05/28/2024 us Phillip [facility] URINE ORDERABLES Final Re sult [facility] [address] [place] [address] * (ABNORMAL) CBC and Differential (05/28/2024 11:14 AM EDT) WBC 9.9 3.4 - 10.8 x10E3/uL [facility] RBC 4.35 3.77 - 5.28 x10E6/uL [facility] Hemoglobin 14.3 11.1 - 15.9 g/dL [facility] Hematocrit 45.3 34.0 - 46.6 % [facility] MCV 104(H) 79 - 97 fL [facility] MCH 32.9 26.6 - 33.0 pg [facility] MCHC 31.6 31.5 - 35.7 g/dL [facility] RDW 14.1 11.7 - 15.4 % [facility] Platelets 231 150 - 450 x10E3/uL [facility] Neutrophils Relative 73 Not Estab. % [facility] Lymphocytes Relative 15 Not Estab. % [facility] Monocytes 9 Not Estab. % [facility] Eosinophils Relative 2 Not Estab. % [facility] Basophils Relative 0 Not Estab. % [facility] Neutrophils Absolute 7.4(H) 1.4 - 7.0 x10E3/uL [facility] Lymphocytes Absolute 1.5 0.7 - 3.1 x10E3/uL [facility] Monocytes Absolute 0.8 0.1 - 0.9 x10E3/uL [facility] Eosinophils Absolute 0.2 0.0 - 0.4 x10E3/uL [facility] Basophils Absolute 0.0 0.0 - 0.2 x10E3/uL [facility] Immature Granulocytes 1 Not Estab. % [facility] Immature Grans (Absolute) 0.1 0.0 - 0.1 x10E3/uL [facility] 05/28/2024 11:1 4 AM EDT 05/28/2024 Phillip [facility] BLOOD ORDERABLES Final Re sult [facility] [address] [place] [address] * (ABNORMAL) RP10+2AC (05/28/2024 11:14 AM EDT) Glucose 283(H) 70 - 99 mg/dL [facility] Uric Acid 5.8 3.1 - 7.9 mg/dL [facility] Comment:Therapeutic target f or gout patients: <6.0 BUN 14 8 - 27 mg/dL [facility] Creatinine 1.16(H) 0.57 - 1.00 mg/dL [facility] eGFR CKD-EPI CR 2020 50(L) >59 mL/min/1.7 3 [facility] BUN/Creatinine Ratio 12 12 - 28 [facility] Sodium 140 134 - 144 mmol/L [facility] Potassium 3.9 3.5 - 5.2 mmol/L [facility] Chloride 96 96 - 106 mmol/L [facility] Bicarbonate (CO2) 30(H) 20 - 29 mmol/L [facility] Anion Gap 14.0 10.0 - 18.0 mmol/L [facility] Calcium 9.6 8.7 - 10.3 mg/dL [facility] Phosphorus 3.8 3.0 - 4.3 mg/dL [facility] Total Protein 5.7(L) 6.0 - 8.5 g/dL [facility] Albumin 3.9 3.8 - 4.8 g/dL [facility] Globulin 1.8 1.5 - 4.5 g/dL [facility] 05/28/2024 11:1 4 AM EDT 05/28/2024 Phillip [facility] [id number] SOLICITED RESULTS Final Result [facility] [address] [place] [address] documented in this encounter Visit Diagnoses Diagnosis Stage 3b chronic kidney disease (HCC) Stage 3a chronic kidney disease (HCC) Type 1 diabetes mellitus, not otherwise specified (HCC) Hyperuricemia Hypertensive disorder Atrial fibrillation, not otherwise specified (HCC) Bacteriuria documented in this encounter Care Teams Ornament Setter Relationship Specialty Start Date End Date Koki Crowley MD [address] [place], [place] PCP - General Internal Medicine 05/12/20 documented as of this encounter
--- OUTSIDE RECORDS SUMMARY | 2025-02-25 16:21 | XMS_ITS | Encounter Summary ---
Author Organization [facility], Address [address] [place] [address] Phone Care Team Providers Care Electronic Gluer Name Role Phone Koki Crowley MD Primary Care Provider [phone] Encounter Details Date Type Department Care Team (Late Contact Info) Description 09/03/2024 Documentation Only [facility] [address] [place] [phone] Dejah Conner [address] [place] [address] Social History Tobacco Use Types [...] Visit [facility] [address] [place] [address] Rogelio Josue MD [address] [place] [address] documented as of this encounter Visit Diagnoses Not on filedocumented in this encounter Care Teams Electronic Gluer Relationship Specialty Start Date End Date Koki Crowley MD [address] [place], [place] PCP - General Internal Medicine 05/12/20 documented as of this encounter
--- OUTSIDE RECORDS SUMMARY | 2025-02-25 16:21 | XMS_ITS | Clinical Summary ---
Author Organization Unknown Care Team Providers Care [employer] Name Role Phone NICO BRYANT MD, BERONICA Unavailable Unavailable ALEJANDRINA PT, WALTER Unavailable Unavailable [facility] ([facility]) [facility] - PT, SUDHIR Unavailable Unavailable ZAIDA RN, TRAMAINE Unavailable Unavailable SNYDER OT, DIEGO Unavailable Unavailable Payers Payer Name Policy Type Policy Number Effective Date Expira tion Date MEDICARE - NGS [place] - PDGM [id number] MEDICAID [facility] [id number] Problems Condition Name Condition Details Condition Category Status Onset Date Resolution Date Last Treatment Date Treating Clinician Comments MALIGNANT NEOPLASM OF LOWER LOBE, RIGHT BRONCHUS OR LUNG Active 10-16 00:00: 00 ALF (CURRENT) USE OF INSULIN Active 10-16 00:00: 00 CROHN'S DISEASE, UNSPECIFIED, 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 Active 10-16 00:00: 00 CHRONIC ATRIAL FIBRILLATION , UNSPECIFIED Active 10-16 00:00: 00 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 Active 10-16 00:00: 00 TYPE 1 DIABETES MELLITUS W DIABETIC CHRONIC KIDNEY DISEASE Active 10-16 00:00: 00 CHRONIC KIDNEY DISEASE, STAGE 2 (MILD) Active 10-16 00:00: 00 ESSENTIAL (PRIMARY) HYPERTENSION Active 10-16 00:00: 00 AGE-RELATED OSTEOPOROSIS W/O CURRENT PATHOLOGICAL FRACTURE Active 10-16 00:00: 00 OBSTRUCTIVE SLEEP APNEA (ADULT) (PEDIATRIC) Active 10-16 00:00: 00 OTHER CHRONIC PAIN Active 10-16 00:00: 00 RADICULOPATH Y, LUMBAR REGION Active 10-16 00:00: 00 HYPERLIPIDEM IA, UNSPECIFIED Active 10-16 00:00: 00 GOUT, UNSPECIFIED Active 10-16 00:00: 00 ALF (CURRENT) USE OF ANTICOAGULAN TS Active 10-16 00:00: 00 ALF (CURRENT) USE OF NON-STEROIDA L NON-INFLAM (NSAID) Active 10-16 00:00: 00 Allergies, Adverse Reactions, Alerts Allergy Name Allergy Type Status Severity Reaction(s) Onset Date Inactive Date Treating Clinician Comments ADHESIVE SILICONE TAPE Propensity to adverse reactions Active 2024-12 19:23:0 9 Medications Ordered Medication Name Filled Medication Name Start Date Stop Date Current Medication? Ordering Clinician Indication Dosage Frequency Signature (SIG) Comments Components azathioprin e 50 mg tablet 03-21 00:00: 00 08-24 23:59 :00 No [id number] 1 tablet EVERY AM 1 tablet EVERY AM (route: oral) Med Classific ation: Immunosup pressive Agents Belbuca 900 mcg buccal film 03-21 00:00: 00 05-17 00:00 :00 No [id number] 1 film EVERY 12 HOURS 1 film EVERY 12 HOURS (route: buccal) Med Classific ation: Analgesic , Anti-infl ammatory or Antipyret ic metoprolol succinate ER 25 mg tablet,exte nded release 24 hr 03-21 00:00: 00 05-17 00:00 :00 No [id number] 1 tablet DAILY 1 tablet DAILY (route: oral) Med Classific ation: Cardiovas cular Therapy Agents Multaq 400 mg tablet 03-21 00:00: 00 08-24 23:59 :00 No [id number] 1 tablet EVERY 12 HOURS 1 tablet EVERY 12 HOURS (route: oral) Med Classific ation: Cardiovas cular Therapy Agents prednisone 5 mg tablet 03-21 00:00: 00 08-24 23:59 :00 No [id number] 1 tablet DAILY 1 tablet DAILY (route: oral) Med Classific ation: Endocrine Tylenol 325 mg capsule 03-21 00:00: 00 08-24 23:59 :00 No [id number] 3 capsule EVERY 8 HOURS 3 capsule EVERY 8 HOURS (route: oral) Med Classific ation: Analgesic , Anti-infl ammatory or Antipyret ic DILT-XR 180 mg capsule, extended release 03-29 00:00: 00 08-24 23:59 :00 No [id number] 1 capsule EVERY AM 1 capsule EVERY AM (route: oral) Med Classific ation: Cardiovas cular Therapy Agents torsemide 20 mg tablet 14 00:00: 00 05-17 00:00 :00 No [id number] 40 mg 2 TIMES DAILY 40 mg 2 TIMES DAILY (route: oral) Med Classific ation: Cardiovas cular Therapy Agents Basaglar KwikPen U-100 Insulin 100 unit/mL (3 mL) subcutane s 05-17 00:00: 00 08-24 23:59 :00 No [id number] 15 unit BEDTIME 15 unit BEDTIME (route: subcutaneo ) Med Classific ation: Endocrine digoxin 125 mcg (0.125 mg) tablet 05-17 00:00: 00 08-24 23:59 :00 No [id number] 1 tablet EVERY AM 1 tablet EVERY AM (route: oral) Med Classific ation: Cardiovas cular Therapy Agents Dilaudid 2 mg tablet 05-17 00:00: 00 08-24 23:59 :00 No [id number] 6 mg EVERY 6 HOURS 6 mg EVERY 6 HOURS (route: oral) Med Classific ation: Analgesic , Anti-infl ammatory or Antipyret ic latanoprost 0.005 % eye drops 05-17 00:00: 00 08-24 23:59 :00 No [id number] 1 drops BEDTIME 1 drops BEDTIME (route: ophthalmic (eye)) Med Classific ation: Ophthalmi c Agents metoprolol succinate ER 25 mg tablet,exte nded release 24 hr 05-17 00:00: 00 08-24 23:59 :00 No [id number] 75 mg EVERY AM 75 mg EVERY AM (route: oral) Med Classific ation: Cardiovas cular Therapy Agents midodrine 10 mg tablet 05-17 00:00: 00 08-24 23:59 :00 No [id number] 10 mg EVERY AM 10 mg EVERY AM (route: oral) Med Classific ation: Cardiovas cular Therapy Agents Novolog Mix 70-30 FlexPen U-100 Insulin 100 unit/mL subcutaneou s pen 05-17 00:00: 00 08-24 23:59 :00 No [id number] Per instruc tions DIRECTED Per instructio ns DIRECTED (route: subcutaneo us) Med Classific ation: Endocrine ProAir HFA 90 mcg/actuati on aerosol inhaler 05-17 00:00: 00 08-24 23:59 :00 No [id number] 2 puff EVERY 4 HOURS 2 puff EVERY 4 HOURS (route: inhalation ) Med Classific ation: Respirato ry Therapy Agents Xarelto 15 mg tablet 05-17 00:00: 00 08-24 23:59 :00 No [id number] 15 mg EVERY AM 15 mg EVERY AM (route: oral) Med Classific ation: Hematolog ical Agents alendronate 70 mg tablet 05-05 00:00: 00 03-12 23:59 :00 No [id number] 1 tablet WEEKLY 1 tablet WEEKLY (route: oral) Med Classific ation: Endocrine allopurinol 100 mg tablet 05-05 00:00: 00 03-12 23:59 :00 No [id number] 1 tablet BEDTIME 1 tablet BEDTIME (route: oral) Med Classific ation: Gout and Hyperuric emia Therapy atorvastati n 40 mg tablet 05-05 00:00: 00 03-12 23:59 :00 No [id number] 1 tablet BEDTIME 1 tablet BEDTIME (route: oral) Med Classific ation: Cardiovas cular Therapy Agents clobetasol 0.05 % lotion 05-05 00:00: 00 03-12 23:59 :00 No [id number] Per instruc tions 2 TIMES DAILY Per instructio ns 2 TIMES DAILY (route: topical) Med Classific ation: Dermatolo gical diltiazem CD 240 mg capsule,ext ended release 24 hr 05-05 00:00: 00 03-12 23:59 :00 No [id number] 1 capsule DAILY 1 capsule DAILY (route: oral) Med Classific ation: Cardiovas cular Therapy Agents gabapentin 100 mg capsule 05-05 00:00: 00 03-12 23:59 :00 No [id number] 1 capsule BEDTIME 1 capsule BEDTIME (route: oral) Med Classific ation: Central Nervous System Agents hydromorpho ne 2 mg tablet 05-05 00:00: 00 03-12 23:59 :00 No [id number] 1 tablet EVERY 6 HOURS 1 tablet EVERY 6 HOURS (route: oral) Med Classific ation: Analgesic , Anti-infl ammatory or Antipyret ic insulin glargine (U-100) 100 unit/mL subcutaneou s solution 05-07 00:00: 00 03-12 23:59 :00 No [id number] 28 unit BEDTIME 28 unit BEDTIME (route: subcutaneo us) Med Classific ation: Endocrine latanoprost 0.005 % eye drops 05-05 00:00: 00 03-12 23:59 :00 No [id number] 1 drops BEDTIME 1 drops BEDTIME (route: ophthalmic (eye)) Med Classific ation: Ophthalmi c Agents metoprolol tartrate 50 mg tablet 05-05 00:00: 00 06-05 23:59 :00 No [id number] 1 tablet 3 TIMES DAILY 1 tablet 3 TIMES DAILY (route: oral) Med Classific ation: Cardiovas cular Therapy Agents midodrine 5 mg tablet 05-07 00:00: 00 03-12 23:59 :00 No [id number] 1 tablet DIRECTED 1 tablet DIRECTED (route: oral) Med Classific ation: Cardiovas cular Therapy Agents Multivitami n 50 Plus tablet 05-05 00:00: 00 03-12 23:59 :00 No [id number] 1 tablet DAILY 1 tablet DAILY (route: oral) Med Classific ation: Electroly te Balance-N utritiona l Products potassium chloride ER 20 mEq tablet,exte nded release 05-05 00:00: 03-12 23:59 :00 No [id number] 1 tablet DAILY 1 tablet DAILY (route: oral) Med Classific ation: Electroly te Balance-N utritiona l Products prednisone 5 mg tablet 05-05 00:00: 00 03-12 23:59 :00 No [id number] 1 tablet DAILY 1 tablet DAILY (route: oral) Med Classific ation: Endocrine torsemide 20 mg tablet 05-05 00:00: 00 03-12 23:59 :00 No [id number] 1 tablet 2 TIMES DAILY 1 tablet 2 TIMES DAILY (route: oral) Med Classific ation: Cardiovas cular Therapy Agents Xarelto 15 mg tablet 05-05 00:00: 00 03-12 23:59 :00 No [id number] 1 tablet DAILY 1 tablet DAILY (route: oral) Med Classific ation: Hematolog ical Agents metoprolol tartrate 25 mg tablet 06-05 00:00: 00 03-12 23:59 :00 No [id number] 1 tablet 2 TIMES DAILY 1 tablet 2 TIMES DAILY (route: oral) Med Classific ation: Cardiovas cular Therapy Agents latanoprost 0.005 % eye drops 03-27 00:00: 00 01-06 23:59 :00 No [id number] Per instruc tions DAILY Per instructio ns DAILY (route: ophthalmic (eye)) Med Classific ation: Ophthalmi c Agents hydromorpho ne 2 mg tablet 03-08 00:00: 00 01-06 23:59 :00 No [id number] Unavailable Per instruc tions EVERY 8 HOURS NEEDED Per instructio ns EVERY 8 HOURS NEEDED (route: oral) Med Classific ation: Analgesic , Anti-infl ammatory or Antipyret ic allopurinol 100 mg tablet 03-07 00:00: 00 01-06 23:59 :00 No [id number] 1 tablet BEDTIME 1 tablet BEDTIME (route: oral) Med Classific ation: Gout and Hyperuric emia Therapy torsemide 20 mg tablet 03-06 00:00: 00 01-06 23:59 :00 No [id number] 1 tablet 2 TIMES DAILY 1 tablet 2 TIMES DAILY (route: oral) Med Classific ation: Cardiovas cular Therapy Agents alendronate 70 mg tablet 04-06 00:00: 00 01-06 23:59 :00 No [id number] 1 tablet WEEKLY 1 tablet WEEKLY (route: oral) Med Classific ation: Endocrine atorvastati n 40 mg tablet 04-04 00:00: 00 01-06 23:59 :00 No [id number] 1 tablet BEDTIME 1 tablet BEDTIME (route: oral) Med Classific ation: Cardiovas cular Therapy Agents diltiazem CD 180 mg capsule,ext ended release 24 hr 04-04 00:00: 00 01-06 23:59 :00 No [id number] 1 capsule DAILY 1 capsule DAILY (route: oral) Med Classific ation: Cardiovas cular Therapy Agents gabapentin 100 mg capsule 04-04 00:00: 00 04-18 23:59 :00 No [id number] 2 capsule 3 TIMES DAILY 2 capsule 3 TIMES DAILY (route: oral) Med Classific ation: Central Nervous System Agents Humalog KwikPen (U-100) Insulin 100 unit/mL subcutaneou s 04-04 00:00: 00 01-06 23:59 :00 No [id number] Per instruc tions DIRECTED Per instructio ns DIRECTED (route: subcutaneo us) Med Classific ation: Endocrine Lantus Solostar U-100 Insulin 100 unit/mL (3 mL) subcutaneou s pen 04-04 00:00: 00 01-06 23:59 :00 No [id number] 23 unit BEDTIME 23 unit BEDTIME (route: subcutaneo us) Med Classific ation: Endocrine metoprolol succinate ER 50 mg tablet,exte nded release 24 hr 04-04 00:00: 00 01-06 23:59 :00 No [id number] 1 tablet DAILY 1 tablet DAILY (route: oral) Med Classific ation: Cardiovas cular Therapy Agents midodrine 5 mg tablet 04-04 00:00: 00 01-06 23:59 :00 No [id number] 1 tablet 3 TIMES DAILY 1 tablet 3 TIMES DAILY (route: oral) Med Classific ation: Cardiovas cular Therapy Agents Xarelto 15 mg tablet 04-04 00:00: 00 01-06 23:59 :00 No [id number] 1 tablet BEDTIME 1 tablet BEDTIME (route: oral) Med Classific ation: Hematolog ical Agents gabapentin 100 mg capsule 04-18 00:00: 00 01-06 23:59 :00 No [id number] 1 capsule 4 TIMES DAILY 1 capsule 4 TIMES DAILY (route: oral) Med Classific ation: Central Nervous System Agents torsemide 20 mg tablet 05-03 00:00: 00 01-06 23:59 :00 No [id number] 1 tablet DAILY 1 tablet DAILY (route: oral) Med Classific ation: Cardiovas cular Therapy Agents acetaminoph en ER 650 mg tablet,exte nded release 01-08 00:00: 00 Yes [id number] 2 tablet EVERY 12 HOURS 2 tablet EVERY 12 HOURS (route: oral) Med Classific ation: Analgesic , Anti-infl ammatory or Antipyret ic alendronate 70 mg tablet 01-08 00:00: 00 Yes [id number] 1 tablet WEEKLY 1 tablet WEEKLY (route: oral) Med Classific ation: Endocrine allopurinol 100 mg tablet 01-08 00:00: 00 Yes [id number] 1 tablet DAILY 1 tablet DAILY (route: oral) Med Classific ation: Gout and Hyperuric emia Therapy atorvastati n 40 mg tablet 01-08 00:00: 00 Yes [id number] 1 tablet DAILY 1 tablet DAILY (route: oral) Med Classific ation: Cardiovas cular Therapy Agents BIOTIN 5000 MCG 01-08 00:00: 00 Yes [id number] 1 tablet DAILY 1 tablet DAILY (route: BY MOUTH) Med Classific ation: MISCELLAN EOUS HERBS AND SUPPLEMEN TS celecoxib 200 mg capsule 01-08 00:00: 00 02-18 23:59 :00 No [id number] 1 capsule 2 TIMES DAILY 1 capsule 2 TIMES DAILY (route: oral) Med Classific ation: Analgesic , Anti-infl ammatory or Antipyret ic diltiazem CD 180 mg capsule,ext ended release 24 hr 01-08 00:00: 00 02-18 23:59 :00 No [id number] 1 capsule 2 TIMES DAILY 1 capsule 2 TIMES DAILY (route: oral) Med Classific ation: Cardiovas cular Therapy Agents estradiol 0.01% (0.1 mg/gram) vaginal cream 01-08 00:00: 00 Yes [id number] 1 inch 2 TIMES A WEEK 1 inch 2 TIMES A WEEK (route: vaginal) Med Classific ation: Vaginal Products gabapentin 100 mg capsule 01-08 00:00: 00 02-18 23:59 :00 No [id number] 1 capsule 4 TIMES DAILY 1 capsule 4 TIMES DAILY (route: oral) Med Classific ation: Central Nervous System Agents insulin glargine (U-100) 100 unit/mL (3 mL) subcutaneou s pen 01-08 00:00: 00 02-18 23:59 :00 No [id number] 24 unit DAILY 24 unit DAILY (route: subcutaneo us) Med Classific ation: Endocrine insulin lispro (U-100) 100 unit/mL subcutaneou s pen 01-08 00:00: 00 02-18 23:59 :00 No [id number] 2-10 unit 3 TIMES DAILY 2-10 unit 3 TIMES DAILY (route: subcutaneo us) Med Classific ation: Endocrine latanoprost 0.005 % eye drops 01-08 00:00: 00 Yes [id number] 1 drops DAILY 1 drops DAILY (route: ophthalmic (eye)) Med Classific ation: Ophthalmi c Agents metoprolol succinate ER 50 mg tablet,exte nded release 24 hr 01-08 00:00: 00 02-18 23:59 :00 No [id number] 1 tablet DAILY 1 tablet DAILY (route: oral) Med Classific ation: Cardiovas cular Therapy Agents midodrine 5 mg tablet 01-08 00:00: 00 02-18 23:59 :00 No [id number] 1 tablet 3 TIMES DAILY 1 tablet 3 TIMES DAILY (route: oral) Med Classific ation: Cardiovas cular Therapy Agents oxycodone 5 mg tablet 01-08 00:00: 00 02-18 23:59 :00 No [id number] 1 tablet EVERY 4 HOURS 1 tablet EVERY 4 HOURS (route: oral) Med Classific ation: Analgesic , Anti-infl ammatory or Antipyret ic polyethylen e glycol 3350 17 gram oral powder packet 01-08 00:00: 00 Yes [id number] 1 packet DAILY 1 packet DAILY (route: oral) Med Classific ation: Gastroint estinal Therapy Agents potassium citrate (replacemen t) 99 mg capsule 01-08 00:00: 00 02-18 23:59 :00 No [id number] 44.5 mg DAILY 44.5 mg DAILY (route: oral) Med Classific ation: Electroly te Balance-N utritiona l Products torsemide 20 mg tablet 01-08 00:00: 00 02-18 23:59 :00 No [id number] 2 tablet DAILY 2 tablet DAILY (route: oral) Med Classific ation: Cardiovas cular Therapy Agents Xarelto 15 mg tablet 01-08 00:00: 00 Yes [id number] 1 tablet DAILY 1 tablet DAILY (route: oral) Med Classific ation: Hematolog ical Agents Dilaudid 2 mg tablet 02-18 00:00: 00 Yes [id number] 1 tablet EVERY 6 HOURS 1 tablet EVERY 6 HOURS (route: oral) Med Classific ation: Analgesic , Anti-infl ammatory or Antipyret ic diltiazem 60 mg tablet 02-18 00:00: 00 Yes [id number] 1 tablet 3 TIMES DAILY 1 tablet 3 TIMES DAILY (route: oral) Med Classific ation: Cardiovas cular Therapy Agents folic acid 1 mg tablet 02-18 00:00: 00 Yes [id number] 1 tablet DAILY 1 tablet DAILY (route: oral) Med Classific ation: Electroly te Balance-N utritiona l Products gabapentin 300 mg capsule 02-18 00:00: 00 Yes [id number] 1 capsule 3 TIMES DAILY 1 capsule 3 TIMES DAILY (route: oral) Med Classific ation: Central Nervous System Agents Humalog U-100 Insulin 100 unit/mL subcutaneou s solution 02-18 00:00: 00 Yes [id number] Per instruc tions 3 TIMES A WEEK Per instructio ns 3 TIMES A WEEK (route: subcutaneo us) Med Classific ation: Endocrine insulin glargine (U-100) 100 unit/mL subcutaneou s solution 02-18 00:00: 00 Yes [id number] 18 unit DAILY 18 unit DAILY (route: subcutaneo us) Med Classific ation: Endocrine metoprolol tartrate 37.5 mg tablet 02-18 00:00: 00 Yes [id number] 1 tablet 2 TIMES DAILY 1 tablet 2 TIMES DAILY (route: oral) Med Classific ation: Cardiovas cular Therapy Agents mirtazapine 15 mg tablet 02-18 00:00: 00 Yes [id number] 7.5 mg BEDTIME 7.5 mg BEDTIME (route: oral) Med Classific ation: Central Nervous System Agents Immunizations Ordered Immunization Name Filled Immunization Name Date Status Comments Refusal Reason INFLUENZA, TIV (INACTIVATED) 2024-06-25 00:00:00 Vital Signs Vital Name Observation Time Observation Value Commen ts Temperature 2025-02-24 16:28:00.000 97.1 [degF] Temperature 2025-02-24 09:00:00.000 97.6 [degF] Temperature 2025-02-21 16:09:00.000 98.7 [degF] Temperature 2025-02-20 09:15:00.000 97.7 [degF] Temperature 2025-02-18 17:44:00.000 98.1 [degF] Temperature 2025-01-29 12:06:00.000 97.9 [degF] Temperature 2025-01-27 15:51:00.000 97.4 [degF] Temperature 2025-01-24 08:17:00.000 97 [degF] Temperature 2025-01-23 15:13:00.000 97.4 [degF] Temperature 2025-01-20 15:14:00.000 97 [degF] Temperature 2025-01-17 22:55:00.000 99 [degF] Temperature 2025-01-16 09:15:00.000 97.9 [degF] Temperature 2025 15:42:00.000 99.5 [degF] Temperature 2025 09:42:00.000 97.3 [degF] Temperature 2025-01-09 11:27:00.000 98.5 [degF] BMI (%) 2025-02-18 17:44:00.000 19 kg/m2 BMI (%) 2025-01-09 11:27:00.000 19 kg/m2 Height 2025-02-18 17:44:00.000 67 [in_us] Height 2025-01-09 11:27:00.000 67 [in_us] Pulse 2025-02-24 16:28:00.000 100 /min Pulse 2025-02-24 09:00:00.000 76 /min Pulse 2025-02-21 16:09:00.000 72 /min Pulse 2025-02-20 09:15:00.000 75 /min Pulse 2025-02-18 17:44:00.000 73 /min Pulse 2025-01-29 12:06:00.000 72 /min Pulse 2025-01-27 15:51:00.000 79 /min Pulse 2025-01-24 08:17:00.000 76 /min Pulse 2025-01-23 15:13:00.000 82 /min Pulse 2025-01-20 15:14:00.000 78 /min Pulse 2025-01-17 22:55:00.000 68 /min Pulse 2025-01-16 09:15:00.000 79 /min Pulse 2025 15:42:00.000 78 /min Pulse 2025 09:42:00.000 84 /min Pulse 2025-01-09 11:27:00.000 60 /min O2 Saturation (%) 2025-02-24 16:28:00.000 95 % O2 Saturation (%) 2025-02-21 16:09:00.000 99 % O2 Saturation (%) 2025-02-18 17:44:00.000 95 % O2 Saturation (%) 2025-01-29 12:06:00.000 98 % O2 Saturation (%) 2025-01-27 15:51:00.000 100 % O2 Saturation (%) 2025-01-24 08:17:00.000 96 % O2 Saturation (%) 2025-01-23 15:13:00.000 92 % O2 Saturation (%) 2025-01-20 15:14:00.000 96 % O2 Saturation (%) 2025-01-17 22:56:00.000 96 % O2 Saturation (%) 2025-01-16 09:15:00.000 97 % O2 Saturation (%) 2025 15:42:00.000 99 % O2 Saturation (%) 2025 09:42:00.000 98 % O2 Saturation (%) 2025-01-09 11:27:00.000 96 % Respirations 2025-02-24 16:28:00.000 16 /min Respirations 2025-02-24 09:00:00.000 17 /min Respirations 2025-02-20 09:15:00.000 17 /min Respirations 2025-02-18 17:44:00.000 16 /min Respirations 2025-01-29 12:06:00.000 18 /min Respirations 2025-01-27 15:51:00.000 16 /min Respirations 2025-01-24 08:17:00.000 18 /min Respirations 2025-01-23 15:13:00.000 16 /min Respirations 2025-01-20 15:14:00.000 18 /min Respirations 2025-01-17 22:55:00.000 20 /min Respirations 2025-01-16 09:15:00.000 20 /min Respirations 2025 15:42:00.000 18 /min Respirations 2025 09:42:00.000 18 /min Respirations 2025-01-09 11:27:00.000 14 /min Weight (lbs) 2025-02-18 17:44:00.000 123 [lb_av] Weight (lbs) 2025-01-09 11:27:00.000 123.4 [lb_av] Systolic Blood Pressure 2025-02-24 16:28:00.000 100 mm [Hg] Systolic Blood Pressure 2025-02-24 09:00:00.000 126 mm [Hg] Systolic Blood Pressure 2025-02-21 16:09:00.000 120 mm [Hg] Systolic Blood Pressure 2025-02-20 09:15:00.000 118 mm [Hg] Systolic Blood Pressure 2025-02-18 17:44:00.000 110 mm [Hg] Systolic Blood Pressure 2025-01-29 12:06:00.000 110 mm [Hg] Systolic Blood Pressure 2025-01-27 15:51:00.000 118 mm [Hg] Systolic Blood Pressure 2025-01-24 08:17:00.000 102 mm [Hg] Systolic Blood Pressure 2025-01-23 15:13:00.000 106 mm [Hg] Systolic Blood Pressure 2025-01-20 15:14:00.000 122 mm [Hg] Systolic Blood Pressure 2025-01-17 22:55:00.000 128 mm [Hg] Systolic Blood Pressure 2025-01-16 09:15:00.000 126 mm [Hg] Systolic Blood Pressure 2025 15:42:00.000 120 mm [Hg] Systolic Blood Pressure 2025 09:42:00.000 120 mm [Hg] Systolic Blood Pressure 2025-01-09 11:27:00.000 124 mm [Hg] Diastolic Blood Pressure 2025-02-24 16:28:00.000 58 mm [Hg] Diastolic Blood Pressure 2025-02-24 09:00:00.000 78 mm [Hg] Diastolic Blood Pressure 2025-02-21 16:09:00.000 72 mm [Hg] Diastolic Blood Pressure 2025-02-20 09:15:00.000 74 mm [Hg] Diastolic Blood Pressure 2025-02-18 17:44:00.000 66 mm [Hg] Diastolic Blood Pressure 2025-01-29 12:06:00.000 60 mm [Hg] Diastolic Blood Pressure 2025-01-27 15:51:00.000 64 mm [Hg] Diastolic Blood Pressure 2025-01-24 08:17:00.000 64 mm [Hg] Diastolic Blood Pressure 2025-01-23 15:13:00.000 62 mm [Hg] Diastolic Blood Pressure 2025-01-20 15:14:00.000 58 mm [Hg] Diastolic Blood Pressure 2025-01-17 22:55:00.000 70 mm [Hg] Diastolic Blood Pressure 2025-01-16 09:15:00.000 62 mm [Hg] Diastolic Blood Pressure 2025 15:42:00.000 82 mm [Hg] Diastolic Blood Pressure 2025 09:42:00.000 72 mm [Hg] Diastolic Blood Pressure 2025-01-09 11:27:00.000 81 mm [Hg] Plan of Treatment Planned Activity [...] HEALTH.] Future Scheduled Test SKILLED NU RSE FOR O/A, TEACHING AND MANAGEMENT OF ASPIRA PLEURAL INDWELLING CATHETER TO RIGHT FLANK. SKILLED NURSE TO PROVIDE/INSTRUCT ON DRAIN CARE CLEAN WITH SOAP AND WATER, DRAIN A MAXIMUM OF 1 L, CHANGE DRESSING AND SECURE WITH PAPER TAPE. CARE/DRAINING SHOULD BE DONE ON MONDAYS AND THURSDAYS. CLIENT TO KEEP A LOG OF DRAINAGE AMOUNTS. SKILLED NURSE TO EDUCATE PATIENT/CAREGIER TO MONITOR FOR SIGNS AND SYMPTOMS OF INFECTION TO REPORT. [code = SKILLED NURSE FOR O/A, TEACHING AND MANAGEMENT OF ASPIRA PLEURAL INDWELLING CATHETER TO RIGHT FLANK. SKILLED NURSE TO PROVIDE/INSTRUCT ON DRAIN CARE CLEAN WITH SOAP AND WATER, DRAIN A MAXIMUM OF 1 L, CHANGE DRESSING AND SECURE WITH PAPER TAPE. CARE/DRAINING SHOULD BE DONE ON MONDAYS AND THURSDAYS. CLIENT TO KEEP A LOG OF DRAINAGE AMOUNTS. SKILLED NURSE TO EDUCATE PATIENT/CAREGIER TO MONITOR FOR SIGNS AND SYMPTOMS OF INFECTION TO REPORT.] Future Scheduled Test SKILLED NU RSE FOR DRAINAGE OF PLEURAL FLUID AND ASPIRA DRAIN SITE CARE. DRAIN PLEURAL FLUID VIA ASPIRA DRAIN REMAIN IN PLACE TO -20. SKILLED NURSE TO PERFORM ASPIRA DRAIN SITE CARE FOLLOWS: PER STERILE TECHNIQUE, CLEANSE CATHETER SITE WITH NS, APPLY DCD AND COVER WITH TRANSPARENT DRESSING. CHANGE DRESSING EVERY DAY AND PRN FOR SOILAGE/DISLODGEMENT. SKILLED TEACHING RELATED TO PLEURAL FLUID DRAINAGE AND SIGNS/SYMPTOMS TO REPORT TO PHYSICIAN. [code = SKILLED NURSE FOR DRAINAGE OF PLEURAL FLUID AND ASPIRA DRAIN SITE CARE. DRAIN PLEURAL FLUID VIA ASPIRA DRAIN REMAIN IN PLACE TO -20. SKILLED NURSE TO PERFORM ASPIRA DRAIN SITE CARE FOLLOWS: PER STERILE TECHNIQUE, CLEANSE CATHETER SITE WITH NS, APPLY DCD AND COVER WITH TRANSPARENT DRESSING. CHANGE DRESSING EVERY DAY AND PRN FOR SOILAGE/DISLODGEMENT. SKILLED TEACHING RELATED TO PLEURAL FLUID DRAINAGE AND SIGNS/SYMPTOMS TO REPORT TO PHYSICIAN.] Future Scheduled Test SKILLED NU RSE FOR O/A AND TEACHING RELATED TO FOR CANCER INCLUDING SIGNS AND SYMPTOMS OF DISEASE PROGRESSION, TREATMENT, AND MANAGEMENT OF POTENTIAL SIDE EFFECTS. [code = SKILLED NURSE FOR O/A AND TEACHING RELATED TO FOR CANCER INCLUDING SIGNS AND SYMPTOMS OF DISEASE PROGRESSION, TREATMENT, AND MANAGEMENT OF POTENTIAL SIDE EFFECTS.] Future Scheduled Test SKILLED NU RSE FOR O/A, TEACHING RELATED TO CROHNS DISEASE FOR EARLY IDENTIFICATION OF EXACERBATION OF DISEASE PROCESS. [code = SKILLED NURSE FOR O/A, TEACHING RELATED TO CROHNS DISEASE FOR EARLY IDENTIFICATION OF EXACERBATION OF DISEASE PROCESS.] Future Scheduled Test SKILLED NU RSE FOR O/A, TEACHING AND MANAGEMENT OF CKD FOR EARLY IDENTIFICATION OF EXACERBATION OF DISEASE PROCESS [code = SKILLED NURSE FOR O/A, TEACHING AND MANAGEMENT OF CKD FOR EARLY IDENTIFICATION OF EXACERBATION OF DISEASE PROCESS] Future Scheduled Test OCCUPATION AL THERAPIST TO EVALUATE PATIENT FOR ADLS IMPROVEMENT [code = OCCUPATIONAL THERAPIST TO EVALUATE PATIENT FOR ADLS IMPROVEMENT] Future Scheduled Test SKILLED NU RSE FOR O/A OF RESPIRATORY SYSTEM TO IDENTIFY CHANGES ASSOCIATED WITH EXACERBATION AND TO PROVIDE SKILLED TEACHING ON MANAGEMENT OF PLEURAL EFFUSION. [code = SKILLED NURSE FOR O/A OF RESPIRATORY SYSTEM TO IDENTIFY CHANGES ASSOCIATED WITH EXACERBATION AND TO PROVIDE SKILLED TEACHING ON MANAGEMENT OF PLEURAL EFFUSION.] Future Scheduled Test SKILLED NU RSE FOR ADMINISTRATION AND TEACHING OF PRESCRIBED INJECTION THERAPY FOR INSULIN [code = SKILLED NURSE FOR ADMINISTRATION AND TEACHING OF PRESCRIBED INJECTION THERAPY FOR INSULIN] Future Scheduled Test SKILLED NU RSE TO ASSESS HOME SAFETY FOR PATIENT WITH IMPAIRED VISION AND INSTRUCT PATIENT/CAREGIVER ON SAFETY TECHNIQUES FOR ADLS AND IADLS, MEDICATION MANAGEMENT, AND HOME ADAPTATION. [code = SKILLED NURSE TO ASSESS HOME SAFETY FOR PATIENT WITH IMPAIRED VISION AND INSTRUCT PATIENT/CAREGIVER ON SAFETY TECHNIQUES FOR ADLS AND IADLS, MEDICATION MANAGEMENT, AND HOME ADAPTATION.] Future Scheduled Test PHYSICAL T HERAPIST TO EVALUATE PATIENT FOR GAIT AND STRENGTH [code = PHYSICAL THERAPIST TO EVALUATE PATIENT FOR GAIT AND STRENGTH] Future Scheduled Test SKILLED NU RSE TO [...] TO SIGNS AND SYMPTOMS AND MANAGEMENT OF OSTEOPOROSIS. [code = SKILLED NURSE FOR O/A AND SKILLED TEACHING RELATED TO SIGNS AND SYMPTOMS AND MANAGEMENT OF OSTEOPOROSIS.] Future Scheduled Test VIRTUAL SIT FREQUENCY: 3 PRN VIRTUAL VISITS MAY BE PERFORMED UTILIZING TELECOMMUNICATIONS SYSTEM TO OPTIMIZE SKILLED SERVICES FURNISHED ON THE PLAN OF CARE. SKILLED NURSE TO ESTABLISH SUPPORT MEASURES TO MINIMIZE RISK OF REHOSPITALIZATION, AND INSTRUCT PATIENT/CAREGIVER ON METHODS TO REDUCE AVOIDABLE HOSPITALIZATION. [code = VIRTUAL VISIT FREQUENCY: 3 PRN VIRTUAL VISITS MAY BE PERFORMED UTILIZING [...] Scheduled Test SKILLED NU RSE TO PERFORM ENVIRONMENTAL SAFETY RISK ASSESSMENT AND FALL RISK ASSESSMENT AND PROVIDE INSTRUCTION TO IMPLEMENT ENVIRONMENTAL SAFETY AND FALL PREVENTION STRATEGIES THROUGHOUT THE CERTIFICATION PERIOD. SKILLED NURSE WILL MAINTAIN SITUATIONAL AWARENESS AND WILL NOTIFY CLINICAL ELECTRONICS DESIGN ENGINEER AND PHYSICIAN/PROVIDER WITH ANY CHANGE IN CONDITION. [code = SKILLED NURSE TO PERFORM ENVIRONMENTAL SAFETY RISK ASSESSMENT AND FALL RISK ASSESSMENT AND PROVIDE INSTRUCTION TO IMPLEMENT ENVIRONMENTAL SAFETY AND FALL PREVENTION STRATEGIES THROUGHOUT THE CERTIFICATION PERIOD. SKILLED NURSE WILL MAINTAIN SITUATIONAL AWARENESS AND WILL NOTIFY CLINICAL ELECTRONICS DESIGN ENGINEER AND PHYSICIAN/PROVIDER WITH ANY CHANGE IN CONDITION.] Future Scheduled Test SKILLED NU RSE FOR [...] ULCERS.] Future Scheduled Test SKILLED NU RSE TO REVIEW PATIENT MEDICATIONS (PRESCRIPTION/OTC). INSTRUCT PATIENT/CAREGIVER ON ALL MEDICATIONS INCLUDING PURPOSE, WHEN TO TAKE, IMPORTANCE OF MEDICATION ADHERENCE, MONITORING OF EFFECTIVENESS, ADVERSE DRUG REACTIONS, POSSIBLE SIDE EFFECTS, AND WHEN TO NOTIFY AGENCY OR PHYSICIAN/PROVIDER OF ANY CONCERNS. [code = SKILLED NURSE TO REVIEW PATIENT MEDICATIONS (PRESCRIPTION/OTC). INSTRUCT PATIENT/CAREGIVER ON ALL MEDICATIONS INCLUDING PURPOSE, WHEN TO TAKE, IMPORTANCE OF MEDICATION ADHERENCE, MONITORING OF EFFECTIVENESS, ADVERSE DRUG REACTIONS, POSSIBLE SIDE EFFECTS, AND WHEN TO NOTIFY AGENCY OR PHYSICIAN/PROVIDER OF ANY CONCERNS.] Goal 2025-02-18 Patient Goal - FEEL BETTER Goal Patient Goal - FEEL BETTER Goal Provider Goal - A PLAN OF CARE WILL BE ESTABLISHED THAT MEETS PATIENT'S RETIREMENT NEEDS AND INCLUDES PATIENT GOAL FOR HOME HEALTH. Goal Provider Goal - PATIENT/CAREGIVER WILL VERBALIZE/DEMONSTRATE MANAGEMENT OF DRAIN CARE. INCLUDING S/S INFECTION AND/OR COMPLICATIONS TO REPORT BY THE END OF THE CERTIFICATION PERIOD. Goal Provider Goal - CARE OF ASPIRA CATHETER WILL BE COMPLETED ORDERED. PATIENT/CAREGIVER WILL VERBALIZE SIGNS AND SYMPTOMS OF COMPLICATIONS TO REPORT. Goal Provider Goal - PATIENT/CAREGIVER WILL VERBALIZE/DEMONSTRATE MANAGEMENT OF LUNG CANCER DISEASE AND THE SIDE EFFECTS OF TREATMENTS DURING THIS EPISODE. Goal Provider Goal - EXACERBATIONS OF CROHNS GASTROINTESTINAL DISEASE WILL BE PROMPTLY IDENTIFIED AND INTERVENTIONS IMPLEMENTED TO MINIMIZE RISKS TO PATIENT BY END OF EPISODE. Goal Provider Goal - PATIENT/CAREGIVER WILL VERBALIZE UNDERSTANDING OF GENITOURINARY DISEASE PROCESS, AND EXACERBATIONS OF GENITOURINARY DISEASE WILL BE PROMPTLY IDENTIFIED FOR EARLY INTERVENTION THROUGHOUT THE CERTIFICATION PERIOD. Goal Provider Goal - OCCUPATIONAL THERAPY EVALUATION TO BE COMPLETED WITH RECOMMENDATIONS AND WRITTEN PLAN OF TREATMENT ESTABLISHED FOR THE PHYSICIANS SIGNATURE. Goal Provider Goal - PATIENT/CAREGIVER WILL VERBALIZE/DEMONSTRATE MANAGEMENT OF RESPIRATORY DISEASE PROCESS. CHANGES IN RESPIRATORY STATUS WILL BE IDENTIFIED AND REPORTED TO PHYSICIAN FOR PROMPT INTERVENTION THROUGHOUT THE CERTIFICATION PERIOD. Goal Provider Goal - PATIENT WILL RECEIVE INSULIN ORDERED. PATIENT/CAREGIVER WILL VERBALIZE/DEMONSTRATE KNOWLEDGE OF INJECTION THERAPY BY THE END OF THE CERTIFICATION PERIOD. Goal Provider Goal - PATIENT/CAREGIVER WILL BE ABLE TO APPLY PRINCIPLES OF ENVIRONMENTAL MODIFICATION TO MAINTAIN THE LEVEL OF SAFETY FOR THE LOW VISION PATIENT WITHIN THE HOME SETTING AND PREVENT FALL/INJURY THIS EPISODE Goal Provider Goal - A PHYSICAL THERAPY [...] Provider Goal - PATIENT/CAREGIVER WILL VERBALIZE/DEMONSTRATE EFFECTIVE ENVIRONMENTAL SAFETY AND FALL PREVENTION STRATEGIES, WILL REMAIN SAFE IN THE COMMUNITY, AND WILL BE FREE OF DANGER TO SELF AND OTHERS THROUGHOUT THE CERTIFICATION PERIOD. Goal Provider Goal [...] BY THE END OF THE CERTIFICATION PERIOD. Progress Notes Progress Notes <paragraph>[Visit Date: 2024 by WALTER TINOCO PT]:</paragraph><paragraph>[id number]. PATIENT REPORTS A UNOBSERVED FALL ON MONDAY WITH RESULTING L FOREARM SKIN TEAR, L KNEE SLIGHT BRUISING, NO INCREASE IN PAIN. GAUZE DRESSING APPLIED TO QUARTER SIZED DRIED SKIN TEAR, WRAPPED WGAUZE ROLL AND TAPED. DR BRYANT NOTIFIED. NO NEW ORDERS AT THIS TIME.</paragraph> <paragraph>[Visit Date: 2024 by TRAMAINE CERDA RN]:</paragraph><paragraph>SNV 02/24/25 ABNORMAL VS: BG UNSTABLE, FBG 247, DOWN TO 54 DURING VIIST, TRENDING UPWARD AFTER APPLE JUICE, SHORTBREAD COOKIES AND PEANUT BUTTER. VERBALIZES UNDERSTANDING TO CONTINUE CHECKING EVERY HALF OUR, [facility]ILIA STAFF MADE AWARE TO CHECK ON PATIENT WELL. NOTIFIED, HAS APPT TOMORROW FALLS: LAST NIGHT TRIPPED AND LANDED ON L KNEE AND SCRAPED L FOREARM WHICH IS FULLY GRANULATED TODAY NO DRAINAGE. MD NOTIFIED AND INCIDENT REPORT COMPLETR MEDICATION CHANGES: NA, PATIENT VERNALIZES UNDERSTANDING TO BRING MEDLIST TO PCP APPT TOMORROW, THIS RN WROTE DOWN WHICH MEDS NEED REFILLS ABNORMAL PHYSICAL ASSESSMENT FINDINGS: ASPIRA DRIANAGE AND DSG CHANGE PERFORMED, 975CC YELLOW FLUID REMOVED, INSERTION SITE WNL, TOLERATED PROCEDURE WELL. HR IS IRREGULAR, HX OF AFIB, ASYMPTOMATIC. USES DILAUDID TO PREVENT CANCER PAIN WITH GOOD EFFECT. LS DIM IN R SIDE, SOB WITH MODERATE EXERTION . LBM 2 DAYS AGO . PORT R CHEST WNL O/A: AOX3 DENIES CP PALPITATIONS AND DIZZINESS ABD SNT DENIES NVD DENIES DYSURIA NO EDEMA OR NEUROPATHY , POSITIVE PEDAL PULSES SKIN WARM DRY AND INTACT EDUCATION: DM MANAGEMENT AND DIET, SS INFECTION ,FALL PREVENTION, VERBALIZES UNDERSTANDING INTERVENTIONS NEEDED AT NEXT VISIT: ASPIRA DRAIN COMMUNICATION WITH MD OR OTHER CARE COORDINATION: PCP RE BG AND FALL. MEDLINE ORDER PLACED FOR DRAINAGE AND DSG KITS # [id number] NEXT MD APPT: PCP TM, THORACIC SURGERY , ONC MARCH 04 PATIENT/CG INSTRUCTED TO CALL [facility] 08/05 WITH QUESTIONS AND/OR CHANGE IN CONDITION, VERBALIZES UNDERSTANDING</paragraph> <paragraph>[Visit Date: 2024 by DIEGO AVELAR LPN]:</paragraph><paragraph>SNV 02/21 ABNORMAL VITALS: BS 264 AT TIME OF VISIT FALLS: N.A OBSERVATION AND ASSESSMENT PROVIDED: PATIENT IS ALERT AND ORIENTED X4 PLEASANT AND COOPERATIVE DURING VISIT. PATIENT DENIES ANY NEW OR WORSENING SYMPTOMS REPORTS BLOOD SUGAR IN THE 400S THIS MORNING, SN RECHECKED DURING VISIT, BLOOD SUGAR WAS 264 REMINDED PT TO ADMINISTER INSULIN AN HOUR PRIOR TO EATING, PT IN AGREEMENT. VSS, AFEBRILE, LS DIM THROUGHOUT BUT CLEAR, PT SPEAKS IN FULL SENTENCES WITH NAD. ASPIRA DRAIN LEAKY AT INSERTION POINT. DRESSING REMOVED. DRAINED 1000 CC CLEAR YELLOW FLUID FROM PLEURAL SPACE. NEW DRESSING APPLIED. PT TOLERATED WELL. NO S/S OF INFECTION OBSERVED. PT WAS COMFORTABLE DURING PROCEDURE. JOINT VISIT WITH TRAMAINE Eddy EDUCATION: INSULIN ADMIN PRIOR TO MEALS ACCORDING TO SLIDING SCALE INTERVENTIONS NEEDED AT NEXT VISIT: ASSESSMENT COMMUNICATION WITH MD: Yajaira BOUCHER MD APPOINTMENT: 02/25 PCP, SURGEON MONDAY PT AND CAREGIVER INSTRUCTED TO CALL [facility] WITH ANY QUESTIONS OR CONCERNS AND/OR CHANGES IN CONDITION. PT VERBALIZED UNDERSTANDING.</paragraph> <paragraph>[Visit Date: 2024 by WALTER TINOCO PT]:</paragraph><paragraph>[id number]. PHYSICAL THERAPY EVALUATION COMPLETED PATIENT IS A 75 YO FEMALE WITH RECENT HOSPITALIZATION WITH EXACERBATION OF AFIB AND PLEURAL EFFUSION,DIABETIC KETO ACIDOSIS WELL NEW DIAGNOSIS OF RLL MALIGNANT NEOPLASM. PMHX EXTENSIVE FOR THE FOLLOWING: PAROXYSMAL AFIB, FALLS,CHROHNS, DM I,CHRONIC PAIN, CKD II,LUMBAR RADICULOPATHY, PERIPHERAL NEUROPATHY, GOUT,ORTHOSTATIC HYPOTENSION, R SCIATICA, PINS L HIP FROM HIP FRACTURE OF PROXIMAL FEMORAL NECL, L PUBIC RAMI FRACTURE,TROCHANTERIC BURSITIS, SLEEP APNEA WITH CPAP, R CHEST PORT , R ABDOMEN WOUND DRAIN. PATIENT LIVES ALONE IN [facility] WITH SMALL DOG, SECOND FLOOR. VITAL SIGNS ARE STABLE PAIN IS REPORTED 5 -8/10 IN LOW BACK, ABDOMEN AND BLE. BLE STRENGTH 3/5 GROSSLY. BED MOBILITY IS INDEPENDENT BUT WITH DIFFICULTY. TRANSFER WCTG A ,MULTIPLE ATTEMPTS TO STAND WITH 4WW AND FALLING BACK INTO CHAIR. CTG A WITH AMBULATION ON EVEN SURFACES WITH 4WW X25FT WITH SHUFFLING GAIT, FORWARD FLEXED POSTURE AND INCREASED SOB. TUG SCORE IS 22 SECONDS INDICATING A FALL RISK INCREASE. PATIENT IS AGREEABLE TO PHYSICAL THERAPY 1W1, 2W2 THEN REASSESS. PATIENT TO BEGIN CHEMO.</paragraph> Encounters Start Date/Time End Date/Time Encounter Type Admission Type Attending [facility] Care Department Encounter ID Discharge Date Discharge Status Discharge Condition Discharge Reason Percent Goals Met 2025-01-09 00:00:00 2025-03-09 00:00:00 Outpatient TRAMAINE DANG [facility] [id number] 76.00
--- OUTSIDE RECORDS SUMMARY | 2025-02-25 16:21 | XMS_ITS | Encounter Summary ---
Author Organization [facility] Address [address] [place] [address] Phone Care Team Providers Care Oilfield Plant And Field Operator Name Role Phone Koki Crowley MD Primary Care Provider [phone] Encounter Details Date Type Department Care Team (Late st Contact Info) Description 06/28/2022 Documentation Only [facility] [address] [place] [address] Phillip Saenz PA Social History Tobacco Use Types Packs/Day Years [...] Visit [facility] [address] [place] [address] Rogelio Josue MD [address] [place] [address] [place] [address] documented as of this encounter Visit Diagnoses Not on filedocumented in this encounter Care Teams Oilfield Plant And Field Operator Relationship Specialty Start Date End Date Koki Crowley MD [address] [place] [address] PCP - General Internal Medicine 05/12/20 documented as of this encounter
--- OUTSIDE RECORDS SUMMARY | 2025-02-25 16:21 | XMS_ITS | Encounter Summary ---
Author Organization [facility] [place], Address [address] [place] [address] Phone Care Team Providers Care Graphic Arts Instructor Name Role Phone Koki Crowley MD Primary Care Provider [phone] Reason for Visit * Reason Comments Med Refill Encounter Details Date Type Department Care Team ([facility] Contact Info) Description 06/03/2021 Refill [facility] [address] [place] [address] Rogelio Josue MD [address] [place] [address] [place] [address] Social History Tobacco Use Types [...] Visit [facility] [place], [address] [place] [address] Rogelio Josue MD [address] [facility] [place] [address] documented as of this encounter Visit Diagnoses Not on filedocumented in this encounter Care Teams Graphic Arts Instructor Relationship Specialty Start Date End Date Koki Crowley MD [address] [place], [place] PCP - General Internal Medicine 05/12/20 documented as of this encounter
--- OUTSIDE RECORDS SUMMARY | 2025-02-25 16:21 | XMS_ITS | Encounter Summary ---
Author Organization [facility] Address [address] [place] [address] Care Team Providers Care Senior Actuarial Analyst Name Role Phone Koki Crane MD Primary Care Provider [phone] Encounter Details Date Type Department Care Team (Late st Contact Info) Description 02/09/2025 Lab Requisition [facility] - Main Lab [address] [facility] [place] [address] Jose Alcala MD [address] [place] [address] Type 2 diabetes mellitus without complications (CMS/HCC V24, CMS/HCC V28); Unspecified atrial fibrillation (CMS/HCC V24, CMS/HCC V28); Malignant neoplasm of unspecified part of unspecified bronchus or lung (CMS/HCC V24, CMS/HCC V28) Social History Tobacco Use Types Packs/Day Years Used Date Smoking Tobacco: Every Day Cigarettes Smokeless Tobacco: Never Alcohol Use Standard Drinks/Week Comments Not Asked 0 (1 standard drink = 0.6 oz pur e alcohol) Comments Unknown Sex and Gender Information Value Date Recorded Sex Assigned at Not on file Legal Sex Female 7:08 PM EST Gender Identity Not on file Sexual Orientation Not on file documented as of this encounter Plan of Treatment Not on file documented as of this encounter Procedures Procedure Name Priority Date/Time Associated Diagnosis Comments COMPLETE BLOOD COUNT Routine 02/10/2025 8:21 AM EDT Type 2 diabetes mellitus without complications (CMS/HCC V24, CMS/HCC V28) Unspecified atrial fibrillation (CMS/HCC V24, CMS/HCC V28) Malignant neoplasm of unspecified part of unspecified bronchus or lung (CMS/HCC V24, CMS/HCC V28) THYROID STIMULATING HORMONE Routine 02/10/2025 8:21 AM EDT Type 2 diabetes mellitus without complications (CMS/HCC V24, CMS/HCC V28) Unspecified atrial fibrillation (CMS/HCC V24, CMS/HCC V28) Malignant neoplasm of unspecified part of unspecified bronchus or lung (CMS/HCC V24, CMS/HCC V28) HEMOGLOBIN A1C Routine 02/10/2025 8:21 AM EDT Type 2 diabetes mellitus without complications (CMS/HCC V24, CMS/HCC V28) Unspecified atrial fibrillation (CMS/HCC V24, CMS/HCC V28) Malignant neoplasm of unspecified part of unspecified bronchus or lung (CMS/HCC V24, CMS/HCC V28) FOLATE Routine 02/10/2025 8:21 AM EDT Type 2 diabetes mellitus without complications (CMS/HCC V24, CMS/HCC V28) Unspecified atrial fibrillation (CMS/HCC V24, CMS/HCC V28) Malignant neoplasm of unspecified part of unspecified bronchus or lung (CMS/HCC V24, CMS/HCC V28) VITAMIN B12 Routine 02/10/2025 8:21 AM EDT Type 2 diabetes mellitus without complications (CMS/HCC V24, CMS/HCC V28) Unspecified atrial fibrillation (CMS/HCC V24, CMS/HCC V28) Malignant neoplasm of unspecified part of unspecified bronchus or lung (CMS/HCC V24, CMS/HCC V28) BASIC METABOLIC PANEL Routine 02/10/2025 8:21 AM EDT Type 2 diabetes mellitus without complications (CMS/HCC V24, CMS/HCC V28) Unspecified atrial fibrillation (CMS/HCC V24, CMS/HCC V28) Malignant neoplasm of unspecified part of unspecified bronchus or lung (CMS/HCC V24, CMS/HCC V28) documented in this encounter Results * (ABNORMAL) Hemoglobin A1c (02/10/2025 8:21 AM EDT) Hemoglobin A1C 8.6(H) <6.5 % LAB CHEMISTRY METHOD 02/10/2025 12:22 PM EDT [facility] Mean Bld Glu Estim. 200 mg/dL LAB CHEMISTRY METHOD 02/10/2025 12:22 PM EDT [facility] Blood Venous blood specimen / Unknown Venipuncture / Unknown 02/10/2025 8:21 AM EDT 02/10/2025 9:28 AM EDT Jose Alcala MD LAB BLOOD ORDERABLES Final Result [facility] [address] [place] [address], [place] [phone] * Vitamin B12 (02/10/2025 8:21 AM EDT) Vitamin B-12 846 250 - 900 pcg/mL LAB CHEMISTRY METHOD 02/10/2025 11:13 AM EDT [facility] Blood Venous blood specimen / Unknown Venipuncture / Unknown 02/10/2025 8:21 AM EDT 02/10/2025 9:28 AM EDT us Jose Alcala MD LAB BLOOD ORDERABLES Final Result [facility] [address] [place] [address], [place] [phone] * Folate (02/10/2025 8:21 AM EDT) Folate 16.2 2.8 - 17.0 ng/ml LAB CHEMISTRY METHOD 02/10/2025 11:13 AM EDT [facility] Blood Venous blood specimen / Unknown Venipuncture / Unknown 02/10/2025 8:21 AM EDT 02/10/2025 9:28 AM EDT us Jose Alcala MD LAB BLOOD ORDERABLES Final Result Performing Organization Address City/[facility]/ZIP Co de Phone Number [facility] [address] [place] [address], * Thyroid stimulating hormone (02/10/2025 8:21 AM EDT) TSH 3.59 0.40 - 4.00 mcIU/mL LAB CHEMISTRY METHOD 02/10/2025 11:48 AM EDT [facility] Blood Venous blood specimen / Unknown Venipuncture / Unknown 02/10/2025 8:21 AM EDT 02/10/2025 9:28 AM EDT Jose Alcala MD LAB BLOOD ORDERABLES Final Result Performing Organization Address [facility]/ZIP Co de Phone Number [facility] [address] [place] [address], [place] [phone] * (ABNORMAL) Basic metabolic panel (02/10/2025 8:21 AM EDT) Pathologist [facility] Sodium 142 133 - 145 mmol/L LAB CHEMISTRY METHOD 02/10/2025 11:[address] [facility] Potassium 4.9 3.5 - 5.5 mmol/L LAB CHEMISTRY METHOD 02/10/2025 11:[address] [facility] Chloride 109 96 - 110 mmol/L LAB CHEMISTRY METHOD 02/10/2025 11:[address] [facility] CO2 27 21 - 32 mmol/L LAB CHEMISTRY METHOD 02/10/2025 11:[address] [facility] Anion Gap 6 3 - 11 LAB CHEMISTRY METHOD 02/10/2025 11:[address] [facility] Glucose 175(H) 70 - 100 mg/dL LAB CHEMISTRY METHOD 02/10/2025 11:[address] [facility] BUN 12 5 - 25 mg/dL LAB CHEMISTRY METHOD 02/10/2025 11:13 AM EDT [facility] Creatinine 0.65 0.50 - 1.10 mg/dL LAB CHEMISTRY METHOD 02/10/2025 11:13 AM T [facility] eGFR 93 >=60 mL/min/1. 73m2 LAB CHEMISTRY METHOD 02/10/2025 11:[address] [facility] Comment:Calculation based on the??Chronic Kidney Disease Epidemiology Collaboration (CKD-EPI) equation refit??without adjustment for race. BUN/Creatinine Ratio 18.5 LAB CHEMISTRY METHOD 02/10/2025 11:[address] [facility] Calcium 8.7 8.5 - 10.5 mg/dL LAB CHEMISTRY METHOD 02/10/2025 11:[address] [facility] Blood Venous blood specimen / Unknown Venipuncture / Unknown 02/10/2025 8:21 AM EDT 02/10/2025 9:28 AM EDT us Jose Alcala MD LAB BLOOD ORDERABLES Final Result [facility] [address] [place] [address], * (ABNORMAL) Complete blood count (02/10/2025 8:21 AM EDT) WBC 11.0(H) 4.8 - 10.8 K/mcL LAB HEMETOLOGY METHOD 02/10/2025 9:55 AM EDT [facility] RBC 4.10 3.80 - 4.80 M/mcL LAB HEMETOLOGY METHOD 02/10/2025 9:55 AM EDT [facility] Hemoglobin 13.0 11.5 - 16.0 g/dL LAB HEMETOLOGY METHOD 02/10/2025 9:[address] [facility] Hematocrit 39.7 35.0 - 47.0 % LAB HEMETOLOGY METHOD 02/10/2025 9:55 AM EDT [facility] MCV 97.5 79.0 - 98.0 FL LAB HEMETOLOGY METHOD 02/10/2025 9:55 AM EDT [facility] MCH 31.9 27.0 - 32.0 pcg LAB HEMETOLOGY METHOD 02/10/2025 9:55 AM EDT [facility] MCHC 32.7 32.0 - 37.0 g/dL LAB HEMETOLOGY METHOD 02/10/2025 9:55 AM EDT [facility] RDW 16.9(H) 11.0 - 15.0 % LAB HEMETOLOGY METHOD 02/10/2025 9:55 AM EDT [facility] Platelets 450(H) 130 - 400 K/mcL LAB HEMETOLOGY METHOD 02/10/2025 9:55 AM EDT [facility] MPV 10.4 7.0 - 11.0 FL LAB HEMETOLOGY METHOD 02/10/2025 9:55 AM EDT [facility] NRBC 0.0 <1.0 % LAB HEMETOLOGY METHOD 02/10/2025 9:55 AM EDT [facility] NRBC Absolute 0.00 <0.10 K/mcL LAB HEMETOLOGY METHOD 02/10/2025 9:55 AM EDT [facility] Blood Venous blood specimen / Unknown Venipuncture / Unknown 02/10/2025 8:21 AM EDT 02/10/2025 9:28 AM EDT us Jose Alcala MD LAB BLOOD ORDERABLES Final Result [facility] [address] [place] [address], documented in this encounter Visit Diagnoses Diagnosis Type 2 diabetes mellitus without complications (CMS/HCC V24, CMS/HCC V28) Unspecified atrial fibrillation (CMS/HCC V24, [facility] V28) Malignant neoplasm of unspecified part of unspecified bronchus or lung (CMS/HCC V24, [facility] V28) documented in this encounter Care Teams Senior Actuarial Analyst Relationship Specialty Start Date End Date Koki Crane MD [address] [place] [address] , [address] [facility] APRIL [place] PCP - General Internal Medicine 10/23/15 documented as of this encounter
--- OUTSIDE RECORDS SUMMARY | 2025-02-25 16:21 | XMS_ITS | Encounter Summary ---
Author Organization [facility] Address [address] [place] [address] Phone Care Team Providers Care Pack Mule Worker Name Role Phone Koki Crowley MD Primary Care Provider [phone] Encounter Details Date Type Department Care Team (Late Contact Info) Description 11/11/2021 Documentation Only [facility] [address] [place] [address] Rogelio Josue MD [address] [place] [address] [place] [address] Social History Tobacco Use Types [...] Visit [facility] [address] [place] [address] Rogelio Josue MD [address] [place] [address] [place] [address] documented as of this encounter Visit Diagnoses Not on filedocumented in this encounter Care Teams Pack Mule Worker Relationship Specialty Start Date End Date Koki Crowley MD [address] [place], [place] PCP - General Internal Medicine 05/12/20 documented as of this encounter
--- OUTSIDE RECORDS SUMMARY | 2025-02-25 16:21 | XMS_ITS | Clinical Summary ---
Author Organization [facility], Address [address] [place] [address] [place] [address] Phone Care Team Providers Care Bottle Machine Operator Name Role Phone Koki Crowley MD Primary Care Provider [phone] Allergies Active Allergy Reactions Criticality Noted Date [...] at bed time 90 capsule 3 4 Active allopurinol (ZYLOPRIM) 100 MG tablet TAKE [...] to type 2 diabetes mellitus 12/03/2019 08/16/2021 Immunizations Immunization Administration Dates Next Due Influenza Split High [...] Visit [facility], [address] [place] [address] Rogelio Josue MD [address] [place] [address] Health Maintenance Due Date Last Done Comments Breast Cancer Screening 1950 Pneumococcal Vaccine: 50+ Years (1 of 2 - PCV) 1970 Colorectal Cancer Screening: Annual FOBT 01/14/2000 Colorectal Cancer Screening: Colonoscopy 01/14/2000 Colorectal Cancer Screening: Sigmoidoscopy 01/14/2000 Diabetes: Ophthalmology Exam 12/03/2019 Diabetes: Pedal Pulse Checked 12/03/2019 Diabetes: Sensory Foot Exam 12/03/2019 Diabetes: Visual Foot Exam 12/03/2019 Diabetes: Hemoglobin A1C 04/05/2025 025, 05/28/2024, 06/22/2023, Additional history exists Influenza Vaccine (Season Ended) 2025 09/04/2020, 08/21/2019, 10/27/2016, Additional history exists Hepatitis B Vaccine Aged Out No longe r eligible based on patient's age to complete this topic Procedures Procedure Name Priority Date/Time Associated Diagnosis Comments PTH, INTACT Routine 01/03/2025 2:56 PM EDT VITAMIN D 25 HYDROXY Routine 01/03/2025 2:56 PM EDT HEMOGLOBIN A1C Routine 01/03/2025 2:56 PM EDT PROTEIN / CREATININE RATIO, URINE Routine 01/03/2025 2:56 PM EDT IRON PANEL (FE, TIBC, TSAT) Routine 01/03/2025 2:56 PM EDT CBC Routine 01/03/2025 2:56 PM EDT RENAL FUNCTION PANEL Routine 01/03/2025 2:56 PM EDT from Last 3 Months Results * Iron Panel (Fe, TIBC, TSAT) (01/03/2025 2:56 PM EDT) TIBC 263 250 - 450 ug/dL [facility] UIBC 223 118 - 369 ug/dL [facility] Iron 40 27 - 139 ug/dL [facility] Iron Saturation (TSat) 15 15 - 55 % [facility] 01/03/2025 2:56 PM EDT 01/03/2025 us Rogelio Josue MD LAB BLOOD ORDERABLES Final Resul t [facility] [address] [place] [address] * (ABNORMAL) Protein, Total, Random Urine w/Creatinine (Protein/Creat Ratio) (01/03/2025 2:56 PM EDT) Creatinine, Ur 18.3 Not Estab. mg/dL [facility] Protein, Ur 16.5 Not Estab. mg/dL [facility] Urine Protein/Creati nine Ratio 902(H) 0 - 200 mg/g creat [facility] 01/03/2025 2:56 PM EDT 01/03/2025 us Rogelio Josue MD LAB URINE ORDERABLES Final Resul t Performing Organization Address City/[facility]/ZIP Co de Phone Number [email or web address] [facility] [address] [place] [address] * (ABNORMAL) Vitamin D 25 Hydroxy (01/03/2025 2:56 PM EDT) Vitamin D, 25-OH, Total 16.6(L) 30.0 - 100.0 ng/mL [facility] Comment: Vitamin D deficiency has been defined by the [place] of Medicine and an Endocrine Society practice guideline as a level of serum 25-OH vitamin D less than 20 ng/mL (1,2). The Endocrine Society went on to further define vitamin D insufficiency as a level between 21 and 29 ng/mL (2). 1. IOM ([place] of Medicine). 2010. Dietary reference ?? intakes for calcium and D. [place]: The ?? National AcademGreat [employer]. 2. Mike MF, Yadira NC, Reva MCGHEE, et al. ?? Evaluation, treatment, and prevention of vitamin D ?? deficiency: an Endocrine Society clinical practice ?? guideline. JCEM. 2011 Apr; 96(7):1911-30. 01/03/2025 2:56 PM EDT 01/03/2025 us Rogelio Josue MD LAB BLOOD ORDERABLES Final Resul t Performing Organization Address City/[facility]/ZIP Co de Phone Number [facility] [address] [place] [address] * CBC (01/03/2025 2:56 PM EDT) WBC 8.9 3.4 - 10.8 x10E3/uL [facility] RBC 4.37 3.77 - 5.28 x10E6/uL [facility] Hemoglobin 13.8 11.1 - 15.9 g/dL [facility] Hematocrit 42.4 34.0 - 46.6 % [facility] MCV 97 79 - 97 fL [facility] MCH 31.6 26.6 - 33.0 pg [facility] MCHC 32.5 31.5 - 35.7 g/dL [facility] RDW 13.0 11.7 - 15.4 % [facility] Platelets 326 150 - 450 x10E3/uL [facility] 01/03/2025 2:56 PM EDT 01/03/2025 us Rogelio Josue MD LAB BLOOD ORDERABLES Final Resul t Performing Organization Address City/[facility]/ZIP Co de Phone Number [facility] [address] [place] [address] * (ABNORMAL) PTH, Intact (01/03/2025 2:56 PM EDT) PTH 114(H) 15 - 65 pg/mL [facility] 01/03/2025 2:56 PM EDT 01/03/2025 us Rogelio Josue MD LAB BLOOD ORDERABLES Final Resul t Performing Organization Address City/[facility] Co de Phone Number [facility] [address] [place] [address] * (ABNORMAL) Hemoglobin A1c (01/03/2025 2:56 PM EDT) Hemoglobin A1C 8.2(H) 4.8 - 5.6 % [facility] Comment: ? Prediabetes: 5.7 - 6.4 ? Diabetes: >6.4 ? Glycemic control for adults with diabetes: <7.0 01/03/2025 2:56 PM EDT 01/03/2025 us Rogelio Josue MD LAB BLOOD ORDERABLES Final Resul t Performing Organization Address [facility] de Phone Number [facility] [address] [place] [address] * (ABNORMAL) Renal Function Panel (01/03/2025 2:56 PM EDT) Calcium 9.3 8.7 - 10.3 mg/dL [facility] Glucose 152(H) 70 - 99 mg/dL [facility] BUN 10 8 - 27 mg/dL [facility] Creatinine 0.96 0.57 - 1.00 mg/dL [facility] eGFR CKD-EPI CR 2020 62 >59 mL/min/1.7 3 [facility] BUN/Creatinine Ratio 10(L) 12 - 28 [facility] Sodium 144 134 - 144 mmol/L [facility] Potassium 3.7 3.5 - 5.2 mmol/L [facility] Chloride 101 96 - 106 mmol/L [facility] Bicarbonate (CO2) 24 20 - 29 mmol/L [facility] Phosphorus 4.1 3.0 - 4.3 mg/dL [facility] Albumin 4.0 3.8 - 4.8 g/dL [facility] 01/03/2025 2:56 PM EDT 01/03/2025 Narrative [facility] - 01/14/2025 5:05 PM EDT Specimen Comment: A courtesy copy of this report has been sent to [phone] us Rogelio Josue MD LAB BLOOD ORDERABLES Final Resul t [facility] [address] [place] [address] from Last 3 Months Insurance [address] [place] [address] Medicaid [place] Medicare Care Teams Bottle Machine Operator Relationship Specialty Start Date End Date Koki Crowley MD [address] [place], [place] PCP - General Internal Medicine 05/12/20
--- OUTSIDE RECORDS SUMMARY | 2025-02-25 16:21 | XMS_ITS | Encounter Summary ---
Author Organization [facility] Address [address] [place] [address] Phone Care Team Providers Care Modeler Name Role Phone Koki Crowley MD Primary Care Provider [phone] Encounter Details Date Type Department Care Team (Late Contact Info) Description 10/20/2021 Documentation Only [facility] [address] [place] [address] Rogelio Josue MD [address] [place] [address] [place] [address] Social History Tobacco Use Types [...] [facility] [address] [place] [address] Rogelio Josue MD [address] [place] [address] [place] [address] documented as of this encounter Visit Diagnoses Not on filedocumented in this encounter Care Teams Modeler Relationship Specialty Start Date End Date Koki Crowley MD [address] [place], [place] PCP - General Internal Medicine 05/12/20 documented as of this encounter
--- OUTSIDE RECORDS SUMMARY | 2025-02-25 16:21 | XMS_ITS | Clinical Summary ---
Author Organization Unknown Care Team Providers Care Credit Risk Review Officer Name Role Phone NICO BRYANT MD, BERONICA Unavailable Unavailable ALEJANDRINA PT, WALTER Unavailable Unavailable B[facility]AVITOÑO ([facility]) [facility] - PT, SUDHIR Unavailable Unavailable ZAIDA RN, TRAMAINE Unavailable Unavailable SNYDER OT, DIEGO Unavailable Unavailable Payers Payer Name Policy Type Policy Number Effective Date Expira tion Date MEDICARE - [place] - PDGM [id number] MEDICAID [facility] [id number] Problems Condition Name Condition Details Condition Category Status Onset Date Resolution Date Last Treatment Date Treating Clinician Comments MALIGNANT NEOPLASM OF LOWER LOBE, RIGHT BRONCHUS OR LUNG Active 10-16 00:00: 00 PRISON (CURRENT) USE OF INSULIN Active 10-16 00:00: [...] 00 GOUT, UNSPECIFIED Active 10-16 00:00: 00 PRISON (CURRENT) USE OF ANTICOAGULAN TS Active 10-16 00:00: 00 PRISON (CURRENT) USE OF NON-STEROIDA L NON-INFLAM (NSAID) [...] 03-21 00:00: 00 08-24 23:59 :00 No [id number] 1 tablet EVERY AM 1 tablet EVERY AM (route: oral) Med Classific ation: Immunosup pressive Agents Belbuca 900 mcg buccal film 03-21 00:00: 00 05-17 00:00 :00 No [id number] 1 film EVERY 12 HOURS 1 film EVERY 12 HOURS (route: buccal) Med Classific ation: Analgesic , Anti-infl ammatory or Antipyret ic metoprolol succinate ER 25 mg tablet,exte nded release 24 hr 03-21 00:00: 00 05-17 00:00 :00 No [id number] 1 tablet DAILY 1 tablet DAILY (route: oral) Med Classific ation: Cardiovas cular Therapy Agents Multaq 400 mg tablet 03-21 00:00: 00 08-24 23:59 :00 No [id number] 1 tablet EVERY 12 HOURS 1 tablet EVERY 12 HOURS (route: oral) Med Classific ation: Cardiovas cular Therapy Agents prednisone 5 mg tablet 03-21 00:00: 00 08-24 23:59 :00 No [id number] 1 tablet DAILY 1 tablet DAILY (route: oral) Med Classific ation: Endocrine Tylenol 325 mg capsule 03-21 00:00: 00 08-24 23:59 :00 No [id number] 3 capsule EVERY 8 HOURS 3 capsule EVERY 8 HOURS (route: oral) Med Classific ation: Analgesic , Anti-infl ammatory or Antipyret ic DILT-XR 180 mg capsule, extended release 03-29 00:00: 00 08-24 23:59 :00 No [id number] 1 capsule EVERY AM 1 capsule EVERY AM (route: oral) Med Classific ation: Cardiovas cular Therapy Agents torsemide 20 mg tablet 14 00:00: 00 05-17 00:00 :00 No [id number] 40 mg 2 TIMES DAILY 40 mg 2 TIMES DAILY (route: oral) Med Classific ation: Cardiovas cular Therapy Agents Basaglar KwikPen U-100 Insulin 100 unit/mL (3 mL) subcutane s 05-17 00:00: 00 08-24 23:59 :00 No [id number] 15 unit BEDTIME 15 unit BEDTIME (route: subcutaneo ) Med Classific ation: Endocrine digoxin 125 mcg (0.125 mg) tablet 05-17 00:00: 00 08-24 23:59 :00 No [id number] 1 tablet EVERY AM 1 tablet EVERY AM (route: oral) Med Classific ation: Cardiovas cular Therapy Agents Dilaudid 2 mg tablet 05-17 00:00: 00 08-24 23:59 :00 No [id number] 6 mg EVERY 6 HOURS 6 mg EVERY 6 HOURS (route: oral) Med Classific ation: Analgesic , Anti-infl ammatory or Antipyret ic latanoprost 0.005 % eye drops 05-17 00:00: 00 08-24 23:59 :00 No [id number] 1 drops BEDTIME 1 drops BEDTIME (route: ophthalmic (eye)) Med Classific ation: Ophthalmi c Agents metoprolol succinate ER 25 mg tablet,exte nded release 24 hr 05-17 00:00: 00 08-24 23:59 :00 No [id number] 75 mg EVERY AM 75 mg EVERY AM (route: oral) Med Classific ation: Cardiovas cular Therapy Agents midodrine 10 mg tablet 05-17 00:00: 00 08-24 23:59 :00 No [id number] 10 mg EVERY AM 10 mg EVERY AM (route: oral) Med Classific ation: Cardiovas cular Therapy Agents Novolog Mix 70-30 FlexPen U-100 Insulin 100 unit/mL subcutaneou s pen 05-17 00:00: 00 08-24 23:59 :00 No [id number] Per instruc tions DIRECTED Per instructio ns DIRECTED (route: subcutaneo us) Med Classific ation: Endocrine ProAir HFA 90 mcg/actuati on aerosol inhaler 05-17 00:00: 00 08-24 23:59 :00 No [id number] 2 puff EVERY 4 HOURS 2 puff EVERY 4 HOURS (route: inhalation ) Med Classific ation: Respirato ry Therapy Agents Xarelto 15 mg tablet 05-17 00:00: 00 08-24 23:59 :00 No [id number] 15 mg EVERY AM 15 mg EVERY AM (route: oral) Med Classific ation: Hematolog ical Agents alendronate 70 mg tablet 05-05 00:00: 00 03-12 23:59 :00 No [id number] 1 tablet WEEKLY 1 tablet WEEKLY (route: oral) Med Classific ation: Endocrine allopurinol 100 mg tablet 05-05 00:00: 00 03-12 23:59 :00 No [id number] 1 tablet BEDTIME 1 tablet BEDTIME (route: oral) Med Classific ation: Gout and Hyperuric emia Therapy atorvastati n 40 mg tablet 05-05 00:00: 00 03-12 23:59 :00 No [id number] 1 tablet BEDTIME 1 tablet BEDTIME (route: oral) Med Classific ation: Cardiovas cular Therapy Agents clobetasol 0.05 % lotion 05-05 00:00: 00 03-12 23:59 :00 No [id number] Per instruc tions 2 TIMES DAILY Per instructio ns 2 TIMES DAILY (route: topical) Med Classific ation: Dermatolo gical diltiazem CD 240 mg capsule,ext ended release 24 hr 05-05 00:00: 00 03-12 23:59 :00 No [id number] 1 capsule DAILY 1 capsule DAILY (route: oral) Med Classific ation: Cardiovas cular Therapy Agents gabapentin 100 mg capsule 05-05 00:00: 00 03-12 23:59 :00 No [id number] 1 capsule BEDTIME 1 capsule BEDTIME (route: oral) Med Classific ation: Central Nervous System Agents hydromorpho ne 2 mg tablet 05-05 00:00: 00 03-12 23:59 :00 No [id number] 1 tablet EVERY 6 HOURS 1 tablet EVERY 6 HOURS (route: oral) Med Classific ation: Analgesic , Anti-infl ammatory or Antipyret ic insulin glargine (U-100) 100 unit/mL subcutaneou s solution 05-07 00:00: 00 03-12 23:59 :00 No [id number] 28 unit BEDTIME 28 unit BEDTIME (route: subcutaneo us) Med Classific ation: Endocrine latanoprost 0.005 % eye drops 05-05 00:00: 00 03-12 23:59 :00 No [id number] 1 drops BEDTIME 1 drops BEDTIME (route: ophthalmic (eye)) Med Classific ation: Ophthalmi c Agents metoprolol tartrate 50 mg tablet 05-05 00:00: 00 06-05 23:59 :00 No [id number] 1 tablet 3 TIMES DAILY 1 tablet 3 TIMES DAILY (route: oral) Med Classific ation: Cardiovas cular Therapy Agents midodrine 5 mg tablet 05-07 00:00: 00 03-12 23:59 :00 No [id number] 1 tablet DIRECTED 1 tablet DIRECTED (route: oral) Med Classific ation: Cardiovas cular Therapy Agents Multivitami n 50 Plus tablet 05-05 00:00: 00 03-12 23:59 :00 No [id number] 1 tablet DAILY 1 tablet DAILY (route: oral) Med Classific ation: Electroly te Balance-N utritiona l Products potassium chloride ER 20 mEq tablet,exte nded release 05-05 00:00: 03-12 23:59 :00 No [id number] 1 tablet DAILY 1 tablet DAILY (route: oral) Med Classific ation: Electroly te Balance-N utritiona l Products prednisone 5 mg tablet 05-05 00:00: 00 03-12 23:59 :00 No [id number] 1 tablet DAILY 1 tablet DAILY (route: oral) Med Classific ation: Endocrine torsemide 20 mg tablet 05-05 00:00: 00 03-12 23:59 :00 No [id number] 1 tablet 2 TIMES DAILY 1 tablet 2 TIMES DAILY (route: oral) Med Classific ation: Cardiovas cular Therapy Agents Xarelto 15 mg tablet 05-05 00:00: 00 03-12 23:59 :00 No [id number] 1 tablet DAILY 1 tablet DAILY (route: oral) Med Classific ation: Hematolog ical Agents metoprolol tartrate 25 mg tablet 06-05 00:00: 00 03-12 23:59 :00 No [id number] 1 tablet 2 TIMES DAILY 1 tablet 2 TIMES DAILY (route: oral) Med Classific ation: Cardiovas cular Therapy Agents latanoprost 0.005 % eye drops 03-27 00:00: 00 01-06 23:59 :00 No [id number] Per instruc tions DAILY Per instructio ns DAILY (route: ophthalmic (eye)) Med Classific ation: Ophthalmi c Agents hydromorpho ne 2 mg tablet 03-08 00:00: 00 01-06 23:59 :00 No [id number] Unavailable Per instruc tions EVERY 8 HOURS NEEDED Per instructio ns EVERY 8 HOURS NEEDED (route: oral) Med Classific ation: Analgesic , Anti-infl ammatory or Antipyret ic allopurinol 100 mg tablet 03-07 00:00: 00 01-06 23:59 :00 No [id number] 1 tablet BEDTIME 1 tablet BEDTIME (route: oral) Med Classific ation: Gout and Hyperuric emia Therapy torsemide 20 mg tablet 03-06 00:00: 00 01-06 23:59 :00 No [id number] 1 tablet 2 TIMES DAILY 1 tablet 2 TIMES DAILY (route: oral) Med Classific ation: Cardiovas cular Therapy Agents alendronate 70 mg tablet 04-06 00:00: 00 01-06 23:59 :00 No [id number] 1 tablet WEEKLY 1 tablet WEEKLY (route: oral) Med Classific ation: Endocrine atorvastati n 40 mg tablet 04-04 00:00: 00 01-06 23:59 :00 No [id number] 1 tablet BEDTIME 1 tablet BEDTIME (route: oral) Med Classific ation: Cardiovas cular Therapy Agents diltiazem CD 180 mg capsule,ext ended release 24 hr 04-04 00:00: 00 01-06 23:59 :00 No [id number] 1 capsule DAILY 1 capsule DAILY (route: oral) Med Classific ation: Cardiovas cular Therapy Agents gabapentin 100 mg capsule 04-04 00:00: 00 04-18 23:59 :00 No [id number] 2 capsule 3 TIMES DAILY 2 capsule 3 TIMES DAILY (route: oral) Med Classific ation: Central Nervous System Agents Humalog KwikPen (U-100) Insulin 100 unit/mL subcutaneou s 04-04 00:00: 00 01-06 23:59 :00 No [id number] Per instruc tions DIRECTED Per instructio ns DIRECTED (route: subcutaneo us) Med Classific ation: Endocrine Lantus Solostar U-100 Insulin 100 unit/mL (3 mL) subcutaneou s pen 04-04 00:00: 00 01-06 23:59 :00 No [id number] 23 unit BEDTIME 23 unit BEDTIME (route: subcutaneo us) Med Classific ation: Endocrine metoprolol succinate ER 50 mg tablet,exte nded release 24 hr 04-04 00:00: 00 01-06 23:59 :00 No [id number] 1 tablet DAILY 1 tablet DAILY (route: oral) Med Classific ation: Cardiovas cular Therapy Agents midodrine 5 mg tablet 04-04 00:00: 00 01-06 23:59 :00 No [id number] 1 tablet 3 TIMES DAILY 1 tablet 3 TIMES DAILY (route: oral) Med Classific ation: Cardiovas cular Therapy Agents Xarelto 15 mg tablet 04-04 00:00: 00 01-06 23:59 :00 No [id number] 1 tablet BEDTIME 1 tablet BEDTIME (route: oral) Med Classific ation: Hematolog ical Agents gabapentin 100 mg capsule 04-18 00:00: 00 01-06 23:59 :00 No [id number] 1 capsule 4 TIMES DAILY 1 capsule 4 TIMES DAILY (route: oral) Med Classific ation: Central Nervous System Agents torsemide 20 mg tablet 05-03 00:00: 00 01-06 23:59 :00 No [id number] 1 tablet DAILY 1 tablet DAILY (route: oral) Med Classific ation: Cardiovas cular Therapy Agents acetaminoph en ER 650 mg tablet,exte nded release 01-08 00:00: 00 Yes [id number] 2 tablet EVERY 12 HOURS 2 tablet EVERY 12 HOURS (route: oral) Med Classific ation: Analgesic , Anti-infl ammatory or Antipyret ic alendronate 70 mg tablet 01-08 00:00: 00 Yes [id number] 1 tablet WEEKLY 1 tablet WEEKLY (route: oral) Med Classific ation: Endocrine allopurinol 100 mg tablet 01-08 00:00: 00 Yes [id number] 1 tablet DAILY 1 tablet DAILY (route: oral) Med Classific ation: Gout and Hyperuric emia Therapy atorvastati n 40 mg tablet 01-08 00:00: 00 Yes [id number] 1 tablet DAILY 1 tablet DAILY (route: oral) Med Classific ation: Cardiovas cular Therapy Agents BIOTIN 5000 MCG 01-08 00:00: 00 Yes [id number] 1 tablet DAILY 1 tablet DAILY (route: BY MOUTH) Med Classific ation: MISCELLAN EOUS HERBS AND SUPPLEMEN TS celecoxib 200 mg capsule 01-08 00:00: 00 02-18 23:59 :00 No [id number] 1 capsule 2 TIMES DAILY 1 capsule 2 TIMES DAILY (route: oral) Med Classific ation: Analgesic , Anti-infl ammatory or Antipyret ic diltiazem CD 180 mg capsule,ext ended release 24 hr 01-08 00:00: 00 02-18 23:59 :00 No [id number] 1 capsule 2 TIMES DAILY 1 capsule 2 TIMES DAILY (route: oral) Med Classific ation: Cardiovas cular Therapy Agents estradiol 0.01% (0.1 mg/gram) vaginal cream 01-08 00:00: 00 Yes [id number] 1 inch 2 TIMES A WEEK 1 inch 2 TIMES A WEEK (route: vaginal) Med Classific ation: Vaginal Products gabapentin 100 mg capsule 01-08 00:00: 00 02-18 23:59 :00 No [id number] 1 capsule 4 TIMES DAILY 1 capsule 4 TIMES DAILY (route: oral) Med Classific ation: Central Nervous System Agents insulin glargine (U-100) 100 unit/mL (3 mL) subcutaneou s pen 01-08 00:00: 00 02-18 23:59 :00 No [id number] 24 unit DAILY 24 unit DAILY (route: subcutaneo us) Med Classific ation: Endocrine insulin lispro (U-100) 100 unit/mL subcutaneou s pen 01-08 00:00: 00 02-18 23:59 :00 No [id number] 2-10 unit 3 TIMES DAILY 2-10 unit 3 TIMES DAILY (route: subcutaneo us) Med Classific ation: Endocrine latanoprost 0.005 % eye drops 01-08 00:00: 00 Yes [id number] 1 drops DAILY 1 drops DAILY (route: ophthalmic (eye)) Med Classific ation: Ophthalmi c Agents metoprolol succinate ER 50 mg tablet,exte nded release 24 hr 01-08 00:00: 00 02-18 23:59 :00 No [id number] 1 tablet DAILY 1 tablet DAILY (route: oral) Med Classific ation: Cardiovas cular Therapy Agents midodrine 5 mg tablet 01-08 00:00: 00 02-18 23:59 :00 No [id number] 1 tablet 3 TIMES DAILY 1 tablet 3 TIMES DAILY (route: oral) Med Classific ation: Cardiovas cular Therapy Agents oxycodone 5 mg tablet 01-08 00:00: 00 02-18 23:59 :00 No [id number] 1 tablet EVERY 4 HOURS 1 tablet EVERY 4 HOURS (route: oral) Med Classific ation: Analgesic , Anti-infl ammatory or Antipyret ic polyethylen e glycol 3350 17 gram oral powder packet 01-08 00:00: 00 Yes [id number] 1 packet DAILY 1 packet DAILY (route: oral) Med Classific ation: Gastroint estinal Therapy Agents potassium citrate (replacemen t) 99 mg capsule 01-08 00:00: 00 02-18 23:59 :00 No [id number] 44.5 mg DAILY 44.5 mg DAILY (route: oral) Med Classific ation: Electroly te Balance-N utritiona l Products torsemide 20 mg tablet 01-08 00:00: 00 02-18 23:59 :00 No [id number] 2 tablet DAILY 2 tablet DAILY (route: oral) Med Classific ation: Cardiovas cular Therapy Agents Xarelto 15 mg tablet 01-08 00:00: 00 Yes [id number] 1 tablet DAILY 1 tablet DAILY (route: oral) Med Classific ation: Hematolog ical Agents Dilaudid 2 mg tablet 02-18 00:00: 00 Yes [id number] 1 tablet EVERY 6 HOURS 1 tablet EVERY 6 HOURS (route: oral) Med Classific ation: Analgesic , Anti-infl ammatory or Antipyret ic diltiazem 60 mg tablet 02-18 00:00: 00 Yes [id number] 1 tablet 3 TIMES DAILY 1 tablet 3 TIMES DAILY (route: oral) Med Classific ation: Cardiovas cular Therapy Agents folic acid 1 mg tablet 02-18 00:00: 00 Yes [id number] 1 tablet DAILY 1 tablet DAILY (route: oral) Med Classific ation: Electroly te Balance-N utritiona l Products gabapentin 300 mg capsule 02-18 00:00: 00 Yes [id number] 1 capsule 3 TIMES DAILY 1 capsule 3 TIMES DAILY (route: oral) Med Classific ation: Central Nervous System Agents Humalog U-100 Insulin 100 unit/mL subcutaneou s solution 02-18 00:00: 00 Yes [id number] Per instruc tions 3 TIMES A WEEK Per instructio ns 3 TIMES A WEEK (route: subcutaneo us) Med Classific ation: Endocrine insulin glargine (U-100) 100 unit/mL subcutaneou s solution 02-18 00:00: 00 Yes [id number] 18 unit DAILY 18 unit DAILY (route: subcutaneo us) Med Classific ation: Endocrine metoprolol tartrate 37.5 mg tablet 02-18 00:00: 00 Yes [id number] 1 tablet 2 TIMES DAILY 1 tablet 2 TIMES DAILY (route: oral) Med Classific ation: Cardiovas cular Therapy Agents mirtazapine 15 mg tablet 02-18 00:00: 00 Yes [id number] 7.5 mg BEDTIME 7.5 mg BEDTIME (route: [...] MAINTAIN SITUATIONAL AWARENESS AND WILL NOTIFY CLINICAL LITHOGRAPHIC PRESS FEEDER AND PHYSICIAN/PROVIDER WITH ANY CHANGE IN CONDITION. [code = SKILLED NURSE TO PERFORM ENVIRONMENTAL SAFETY RISK ASSESSMENT AND FALL RISK ASSESSMENT AND PROVIDE INSTRUCTION TO IMPLEMENT ENVIRONMENTAL SAFETY AND FALL PREVENTION STRATEGIES THROUGHOUT THE CERTIFICATION PERIOD. SKILLED NURSE WILL MAINTAIN SITUATIONAL AWARENESS AND WILL NOTIFY CLINICAL LITHOGRAPHIC PRESS FEEDER AND PHYSICIAN/PROVIDER WITH ANY CHANGE IN CONDITION.] [...] CARE WILL BE ESTABLISHED THAT MEETS PATIENT'S DETENTION NEEDS AND INCLUDES PATIENT GOAL FOR HOME [...] Notes <paragraph>[Visit Date: 2024 by WALTER TINOCO PT]:</paragraph><paragraph>[id number]. PATIENT REPORTS A UNOBSERVED FALL ON MONDAY [...] PLACED FOR DRAINAGE AND DSG KITS # [id number] NEXT MD APPT: PCP TM, THORACIC SURGERY [...] UNDERSTANDING.</paragraph> <paragraph>[Visit Date: 2024 by WALTER TINOCO PT]:</paragraph><paragraph>[id number]. PHYSICAL THERAPY EVALUATION COMPLETED PATIENT IS A [...] ABDOMEN WOUND DRAIN. PATIENT LIVES ALONE IN [facility] WITH SMALL DOG, SECOND FLOOR. VITAL [...] End Date/Time Encounter Type Admission Type Attending [facility] Care Department Encounter ID Discharge Date Discharge Status Discharge Condition Discharge Reason Percent Goals Met 2025-01-09 00:00:00 2025-03-09 00:00:00 Outpatient TRAMAINE DANG [facility] [id number] 76.00
--- OUTSIDE RECORDS SUMMARY | 2025-02-25 16:21 | XMS_ITS | Encounter Summary ---
Author Organization [facility] Address [address] [place] [address] Phone Care Team Providers Care Forest Pathology Associate Professor Name Role Phone Koki Crowley MD Primary Care Provider [phone] Encounter Details Date Type Department Care Team (Late Contact Info) Description 09/30/2021 Documentation Only [facility] [address] [place] [address] Rogelio Josue MD [address] [place] [address] [place] [address] Social History Tobacco Use Types [...] Visit [facility] [address] [place] [address] Rogelio Josue MD [address] [place] [address] [place] [address] documented as of this encounter Visit Diagnoses Not on filedocumented in this encounter Care Teams Forest Pathology Associate Professor Relationship Specialty Start Date End Date Koki Crowley MD [address] [place], [place] PCP - General Internal Medicine 05/12/20 documented as of this encounter
--- OUTSIDE RECORDS SUMMARY | 2025-02-25 16:21 | XMS_ITS | Encounter Summary ---
Author Organization [facility] Address [address] [place] [address] Phone Care Team Providers Care Hide Cleaner Name Role Phone Koki Crowley MD Primary Care Provider [phone] Encounter Details Date Type Department Care Team (Late Contact Info) Description 11/12/2021 Documentation Only [facility] [address] [place] [address] Rogelio Josue MD [address] [place] [address] [place] [address] Social History Tobacco Use Types [...] Visit [facility] [address] [place] [address] Rogelio Josue MD [address] [place] [address] [place] [address] documented as of this encounter Visit Diagnoses Not on filedocumented in this encounter Care Teams Hide Cleaner Relationship Specialty Start Date End Date Koki Crowley MD [address] [place], [place] PCP - General Internal Medicine 05/12/20 documented as of this encounter
== END 2025-02-25 16:22 | disposition home or self-care (01) ==
LOC: HO.HMCH 15:34
PROVIDERS: PCP Internal Medicine; Visit Provider Internal Medicine
DX: I48.19 Other persistent atrial fibrillation (principal); K50.90 Crohn's disease, unspecified, without complications; E10.8 Type 1 diabetes mellitus with unspecified complications; C34.90 Malignant neoplasm of unspecified part of unspecified bronchus or lung; M81.0 Age-related osteoporosis without current pathological fracture; E78.5 Hyperlipidemia, unspecified

== ENCOUNTER → 2025-02-25 15:33 | Outpatient (BNVA) | payer MEDICARE, MEDICAID, SELFPAY | PROVIDERS: PCP Internal Medicine; Visit Provider Internal Medicine | DX: I48.19 Other persistent atrial fibrillation (principal); M81.0 Age-related osteoporosis without current pathological fracture; E78.5 Hyperlipidemia, unspecified; K50.90 Crohn's disease, unspecified, without complications; E10.8 Type 1 diabetes mellitus with unspecified complications; C34.90 Malignant neoplasm of unspecified part of unspecified bronchus or lung | CPT/HCPCS: 96127; 99212 ==

== ENCOUNTER → 2025-03-17 23:59 | Outpatient (BNV) | payer MEDICARE, MEDICAID, SELFPAY | PROVIDERS: PCP Internal Medicine; Visit Provider Internal Medicine | DX: C34.31 Malignant neoplasm of lower lobe, right bronchus or lung (principal); K50.90 Crohn's disease, unspecified, without complications; I48.20 Chronic atrial fibrillation, unspecified | CPT/HCPCS: G0179 ==